=== PATIENT | female | born 1985 | race Caucasian/White ===

== ENCOUNTER 2024-03-01 23:07 | Emergency (ER) | payer OTHER, SELFPAY ==
[2024-03-01 23:08] VITALS: BP 165/95; PULSE 104; RESP 20; TEMP 37.2; O2SAT 96; BMI 41.5
--- NOTE | 2024-03-01 23:23 | CT_ITS ---
PROCEDURE INFORMATION: Exam: CT Head Without Contrast Exam date and time: 03/02/2024 12:04 AM Age: 38 years old Clinical indication: Other: H/a , sz; Additional info: Self-reported sz, BLOOM TECHNIQUE: Imaging protocol: Computed tomography of the head without contrast. Radiation optimization: All CT scans at this facility use at least one of these dose optimization techniques: automated exposure control; mA and/or kV adjustment per patient size (includes targeted exams where dose is matched to clinical indication); or iterative reconstruction. COMPARISON: No relevant prior studies available. FINDINGS: Brain: Mild generalized cerebral atrophy. No intracranial mass, hemorrhage or evidence of acute ischemia. Cerebral ventricles: No ventriculomegaly. Paranasal sinuses: Visualized sinuses are unremarkable. No fluid levels. Mastoid air cells: Visualized mastoid air cells are well aerated. Bones: Unremarkable. No acute fracture. Soft tissues: Unremarkable. IMPRESSION: No acute intracranial abnormality
[2024-03-01 23:41] LABS: Basophils # 0.1 K/mm3 (0-0.2); Basophils % 0.6 % (0.1-2.0); Eosinophils # 0.3 K/mm3 (0.0-0.4); Eosinophils % 2.2 % (0.1-12.0); Hematocrit 42.1 % (37.0-47.0); Lymphocytes # 1.8 K/mm3 (0.7-4.5); Lymphocytes % 14.3 % (10-50); Mean Corpuscular HGB Conc 33.2 g/dL (31.8-35.4); Mean Corpuscular Hemoglobin 25.9 pg (27.0-31.2); Mean Corpuscular Volume 78.1 fl (81-99); Mean Platelet Volume 7.9 fl (7.4-10.4); Monocytes # 0.8 K/mm3 (0.1-1.0); Neutrophils # 9.9 K/mm3 (1.8-7.8); Neutrophils % 76.9 % (37.0-80.0); Platelet Count 303 K/mm3 (142-424); Red Blood Count 5.38 M/mm3 (4.20-5.40); Red Cell Distribution Width 19.4 % (11.5-17.5); White Blood Count 12.9 K/mm3 (4.8-10.8)
[2024-03-01 23:57] LABS: Albumin Level 3.9 g/dl (3.5-5.0); Chloride 111 mmol/L (98-107); Sodium 140 mmol/L (136-145)
[2024-03-01 23:58] LABS: Potassium 3.4 mmoL/L (3.5-5.1)
[2024-03-01 23:59] LABS: HCG Qualitative, Serum Negative (Negative)
[2024-03-02] LABS: Alanine Aminotransferase 18 U/L (12-78); Albumin/Globulin Ratio 1.2 (1.1-1.8); Alkaline Phosphatase 102 U/L (38-126); Anion Gap 12.4 mEq/L (5-15); Aspartate Amino Transferase 22 U/L (14-36); Bilirubin,Total 0.4 mg/dl (0.2-1.3); Blood Urea Nitrogen 7 mg/dl (7-17); Carbon Dioxide 20 mmol/L (22.0-30.0); Creatinine Clearance Estimated 78 mL/min (50-200); Estimated Glomerular Filt Rate 71 ml/min (>60); GFR (African American) 86 ML/MIN (>60); Globulin 3.2 g/dL (1.3-3.2); Lactic Acid 1.2 mmol/L (0.7-2.1); Total Protein,Serum 7.1 g/dl (6.3-8.2)
[2024-03-02 00:01] LABS: Calcium 8.8 mg/dl (8.4-10.2); Glucose 113 mg/dl (74-100)
[2024-03-02] MEDS: levETIRAcetam 1,000 MG in 0.9 % SODIUM CHLORIDE 100 ML 220 MG IV (00:19)
--- NOTE | 2024-03-02 00:45 | HMH.EDGENADL ---
Discharge Plan Disposition Patient Disposition: Home, Self-Care Condition: Good Prescriptions Prescriptions: No Action levetiracetam 1,000 mg tablet 1,000 mg PO BID sucralfate 1 gram tablet 1 g PO QID cyanocobalamin (vitamin B-12) 1,000 mcg tablet 1,000 mcg PO DAILY hydroxyzine HCl 50 mg tablet 50 mg PO DAILY Patient Comments: TAKE 1 TABLET BY MOUTH DAILY ferrous sulfate [FeroSul] 325 mg (65 mg iron) tablet 325 mg PO DAILY topiramate 200 mg tablet 200 mg PO BID Patient Comments: TAKE 1 TABLET BY MOUTH TWICE DAILY Referrals Follow up/Referrals: Juliano Ely, [Staff Physician] - See instructions (new resident of [facility] PCP and likely neuro referral for breakthrough sz) Melissa Alonso APRN [Primary Care Provider] - See instructions Activity Restrictions/Add. Instructions Additional Instructions/Restrictions: You were evaluated in the ER and are appropriate for discharge at this time. Continue taking all your home medications. Call your neurology office first thing in the morning and ask how much Keppra you are supposed to be taking. The way you are currently being given it looks to be less than the way it was prescribed in december. You have been referred to Dr. Ely for primary care follow-up. Call him for an appointment and for a referral to our local neurologist. Return to the ER with new, worsening, or otherwise concerning symptoms. Clinical Impressions Clinical Impression: Breakthrough seizure Instructions Patient Instructions: DI for Seizure Disorder -- Adult Print Language Print Language: Sami Discharge ED Provider: Malcolm Tesfaye General Adult HPI General Chief complaint: Seizure Stated complaint: seizure Time Seen by Provider: 03/01/24 23:20 Mode of Arrival: EMS Source of Information: Patient and EMS Limitations: No Limitations Description of Symptoms (Recalled from ER Triage Doc. by RN): pt comes from [facility] by EMS, pt reportedly went to the nurses station to report a seizure. pt was in bed and did not fall out of the bed. pt reports she wet the bed and bit the inside of her lip on the left side. pt is also reported generalized pain History of Present Illness HPI narrative: 38-year-old female presents to the ER from [facility] via EMS. Patient reports she believes she had a seizure. She states she was in bed asleep and woke up having urinated on herself and bit the inside of her cheek. She walked to the nurses station immediately after waking up and told them she had had a seizure. No seizure activity was witnessed. Patient reports generalized bodyaches. Patient denies dizziness, numbness, tingling, weakness, chest pain, difficulty breathing, nausea, vomiting, diarrhea. Patient does report a history of seizures and states she takes 1000 mg of Keppra twice daily for it. Patient reports she sees Dr. Tunde Fang with neurology up by [place]. She states she has been on that for years. She states the last time she had a seizure was over a month ago. Patient does report mild dysuria but no hematuria. Related Data Home Medications ?Medication ?Instructions ?Recorded ?Confirmed cyanocobalamin (vitamin B-12) 1,000 mcg PO DAILY 03/02/24 03/02/24 1,000 mcg tablet ferrous sulfate 325 mg (65 mg 325 mg PO DAILY 03/02/24 03/02/24 iron) tablet (FeroSul) hydroxyzine HCl 50 mg tablet 50 mg PO DAILY 03/02/24 03/02/24 levetiracetam 1,000 mg tablet 1,000 mg PO BID 03/02/24 03/02/24 sucralfate 1 gram tablet 1 g PO QID 03/02/24 03/02/24 topiramate 200 mg tablet 200 mg PO BID 03/02/24 03/02/24 Allergies Allergy/AdvReac Type Severity Reaction Status Date / Time cyclobenzaprine Allergy Unknown Verified 03/02/24 02:02 [From Flexeril] allergy reaction prednisone Allergy Unknown Verified 03/02/24 02:02 allergy reaction [facility] Disclaimer: The information contained in this section may have been updated after the patient was seen, as this information can be updated by other users. Medical History (Updated 03/02/24 @ 02:29 by Malcolm Tesfaye MD) Seizure disorder Social History Smoking Status: Current every day smoker alcohol intake: never current occupational status: unemployed Travel in the last 8 weeks: None ROS Obtained: Yes Systems reviewed as appropriate & no additional complaints except as documented Constitutional Constitutional: Reports body ache, Denies chills, Denies fever(s), Denies headache(s) and Denies weakness Eyes Eyes: Denies change in vision ENT Ears, Nose, Mouth, and Throat: Denies dizziness, Denies headache(s), Denies nasal congestion, Denies sore throat and Reports other (Patient reports biting her right cheek) Cardiovascular Cardiovascular: Denies chest pain, Denies dyspnea and Denies leg edema Respiratory Respiratory: Denies cough and Denies dyspnea Gastrointestinal Gastrointestingal: Denies abdominal pain, constipation, diarrhea, nausea or vomiting Genitourinary Female Genitourinary: Denies dysuria Musculoskeletal Musculoskeletal: Denies arthralgias, Reports myalgias, Denies numbness and Denies tingling Integumentary/Breasts Skin/Breast: Denies change in pigmentation Neurologic Neurologic: Denies dizziness, Denies headache(s), Denies numbness, Reports seizure-like activity (Believed to have happened, not witnessed), Denies tingling and Denies weakness Physical Exam General General appearance: alert, in no apparent distress and obese Head Head exam: atraumatic and normocephalic Eye Eye exam: Present PERRL and EOMI ENT ENT exam: Present mucous membranes moist and other (Small abrasion inside right cheek, no bleeding, no other intraoral injuries or abnormalities appreciated) Neck Neck exam: Present normal inspection and full ROM Chest Chest inspection: Present symmetric chest wall rise Respiratory Respiratory exam: Present normal lung sounds bilaterally; Absent respiratory distress, wheezes or stridor Cardiovascular Cardiovascular exam: Present regular rate and normal rhythm Abdominal Exam Abdominal exam: Present soft; Absent distention, tenderness, guarding or rebound Extremities Exam Extremities exam: Present full ROM, normal capillary refill and other (No muscle tenderness appreciated on exam); Absent edema, joint swelling or calf tenderness Neurological Exam Neurological exam: Present alert, oriented X3 and CN II-XII intact; Absent motor sensory deficit Psychiatric Psychiatric exam: Present normal affect and normal mood Skin Skin exam: Present warm and dry Medical Decision Making Medical Records Screening: Per USPSTF and CDC recommendations, given the prevalence of disease in our region, it is our hospital?s policy to screen for HIV and viral Hepatitis for all patients aged 18 and over and those with ongoing risk factors. Lloyd Inquiry Pt receiving controlled substance: No Vital Signs: 03/01/24 23:08 Temperature 99.0 F Temperature Source Oral Pulse Rate [Right] 104 H Respiratory Rate 20 Blood Pressure [Right Arm] 165/95 H Blood Pressure Mean [Right Arm] 118 02 Sat by Pulse Oximetry 96 Oxygen Delivery Method Room Air Lab Data Lab Results 03/01/24 23:27: WBC 12.9 H, RBC 5.38, Hgb 14.0, Hct 42.1, MCV 78.1 L, MCH 25.9 L, MCHC 33.2, RDW 19.4 H, Plt Count 303, MPV 7.9, Neut % (Auto) 76.9, Lymph % (Auto) 14.3, [place] % (Auto) 6.0, Eos % (Auto) 2.2, Baso % (Auto) 0.6, Neut # (Auto) 9.9 H, Lymph # (Auto) 1.8, [place] # (Auto) 0.8, Eos # (Auto) 0.3, Baso # (Auto) 0.1, Sodium 140, Potassium 3.4 L, Chloride 111 H, Carbon Dioxide 20 L, Anion Gap 12.4, BUN 7, Creatinine 0.90, Estimated Creat Clear 78, Estimated GFR 71, Est GFR ( Amer) 86, Glucose 113 H, Lactate 1.2, Calcium 8.8, Total Bilirubin 0.4, AST 22, ALT 18, Alkaline Phosphatase 102, Total Protein 7.1, Albumin 3.9, Globulin 3.2, Albumin/Globulin Ratio 1.2, Serum HCG, Qual Negative 03/02/24 00:00: Plasma/Serum Alcohol < 10 03/02/24 02:56: Urine Color Yellow, Urine Appearance Clear, Urine pH 6.0, Ur Specific [place] 1.025, Urine Protein Negative, Urine Glucose (UA) Negative, Urine Ketones Negative, Urine Blood Negative, Urine Nitrate Negative, Urine Bilirubin Negative, Urine Urobilinogen 0.2, Ur Leukocyte Esterase Negative, Urine RBC None, Urine WBC None, Ur Squamous Epith Cells 3-5, Urine Bacteria Trace, Urine Mucus Trace, Urine Opiates Screen Negative, Urine Methadone Screen Negative, Ur Barbituates Screen Negative, Ur Phencyclidine Scrn Negative, Ur Amphetamines Screen Negative, U Benzodiazepines Scrn Negative, Urine Cocaine Screen Negative, U Marijuana (THC) Screen Negative 03/01/24 23:27 03/01/24 23:27 Orders (Tests/Meds): ED MEDICATIONS Discontinued Medications Generic Name Dose Route Start Last Admin Trade Name Freq PRN Reason Stop Dose Admin Levetiracetam 1,000 mg/ Sodium 110 mls @ 220 mls/hr 11/06/24 00:01 03/02/24 00:19 Chloride IV 03/02/24 00:02 220 mls/hr ONCE ONE Administration ORDERS Category Date Time Status CT head/brain wo con Stat Cat Scan 03/01/24 23:23 Completed CBC w/Auto Diff [Complete Blood Count Auto Diff] Stat Lab 03/01/24 23:27 Completed CMP [Comprehensive Metabolic Panel] Stat Lab 03/01/24 23:27 Completed Ethanol [Ethyl Alcohol] Stat Lab 03/02/24 00:00 Completed HCG Qualitative, Serum Stat Lab 03/01/24 23:27 Completed Lactic Acid Stat Lab 03/01/24 23:27 Completed UDS [Drug Screen,Urine] Stat Lab 03/02/24 02:56 Completed Urinalysis and Microscopic Stat Lab 03/02/24 02:56 Completed Medical Decision Narrative: In summary, this 38-year-old female presents to the emergency department today with concern of seizure, no witnessed activity. On initial evaluation patient is hemodynamically stable, afebrile, alert, oriented, GCS 15, no neurologic deficits, aside from small abrasion inside right cheek, there are no abnormalities on physical exam. Differential diagnosis includes but is not limited to electrolyte abnormality, dehydration, I considered the possibility of nonepileptic seizure, seizure-like activity, epileptic seizure, breakthrough seizure, medication noncompliance, urinary tract infection. Based on these concerns, I ordered serum labs, CT head, urine studies. With clinical findings concerning for patient having had seizure prior to arrival, I did administer IV Keppra. We have reached out to [facility] to Dr. Tunde Fang in hopes of receiving records from this patient's visits within their system, however so far no success. Labs personally reviewed demonstrate mild leukocytosis, no lactic acidosis, no anemia, no actionable electrolyte abnormality, test negative. Labs are not strongly indicative of patient having had a seizure however I cannot rule it out and with her findings on exam, have an increase suspicion that it is more likely to have been seizure. EtOH negative. CT head personally interpreted does not demonstrate acute intracranial abnormality such as mass, lesion, or bleed. See radiology read for final interpretation. Patient tolerated oral intake in the ER. She eventually provided a urine sample which demonstrated no findings of infection. UDS negative. Patient has remained stable in the ER with no recurrence of seizure activity. She is resting comfortably. She is appropriate for discharge at this time. I reviewed patient's prescription history, it appears as though patient is receiving 1 g twice daily of Keppra at [facility], however the way the prescription is written from December, this appears to be underdosed. I instructed the patient to call her neurologist first thing in the morning and ask how much Where she is supposed to be taking to ensure she is receiving the appropriate amount. [facility] I provided the patient a referral to Dr. Ely with [facility] to establish primary care locally as well as to be referred to our local neurologist for closer follow-up of her seizures. Patient indicated understanding. She was discharged in stable condition. Critical Care Critical Care Time Critical Care Time: No
[2024-03-02 02:27] LABS: Ethyl Alcohol < 10 mg/dl (0-10)
[2024-03-02 03:04] LABS: Microscopic, Urine URINE MICROSCOPIC (MICROSCOPIC)
[2024-03-02 03:05] LABS: Appearance,Urine CLEAR (Clear); Bilirubin,Urine Negative (Negative); Blood, Urine Negative (Negative); Color,Urine YELLOW (Yellow); Glucose,Urine (UA) Negative (Negative); Ketones,Urine Negative (Negative); Leukocyte Esterase,Urine Negative (Negative); Nitrate,Urine Negative (Negative); Protein,Urine Negative (Negative); Specific Gravity, Urine 1.025 (1.005-1.030); Urobilinogen,Urine 0.2 EU/dl (0.2)
[2024-03-02 03:15] LABS: Bacteria,Urine Trace /lpf; Mucus,Urine Trace /lpf
[2024-03-02 03:18] LABS: Amphetamine/Metha Screen,Urine Negative ng/ml (<1000)
[2024-03-02 03:19] LABS: Barbiturates Screen,Urine Negative ng/ml (<200)
[2024-03-02 03:20] LABS: Benzodiazepines Screen,Urine Negative ng/ml (<200); Cannabinoid Screen,Urine Negative ng/ml (<50)
[2024-03-02 03:21] LABS: Cocaine Screen,Urine Negative ng/ml (<300); Methadone Screen,Urine Negative ng/ml (<300)
[2024-03-02 03:22] LABS: Opiate Screen,Urine Negative ng/ml (<300)
[2024-03-02 03:23] LABS: Phencyclidine Screen,Urine Negative ng/ml (<25)
[2024-03-02 03:49] VITALS: BP 132/75; PULSE 82; RESP 18; TEMP 36.4; O2SAT 97
--- NOTE | 2024-03-02 07:47 | PC.NURSE ---
in chart for facesheet for EMS at this time.
== END 2024-03-02 04:04 | disposition home or self-care (01) ==
PROVIDERS: Emergency Provider Emergency Medicine; PCP Nurse Practitioner Family
DX: G40.919 Epilepsy, unspecified, intractable, without status epilepticus (principal); M79.10 Myalgia, unspecified site; R30.0 Dysuria
CPT/HCPCS: 70450; 80053; 80307; 80320; 81001; 83605; 84703; 85025; 96374; 99284; G0480; J1953

== ENCOUNTER 2024-03-09 09:24 | Outpatient (CLI) | payer SELFPAY ==
[2024-03-12 20:13] LABS: Levetiracetam (Keppra) 28.4 ug/mL (10.0-40.0)
== END 2024-03-09 23:59 | disposition home or self-care (01) ==
LOC: LAB 09:33
PROVIDERS: Visit Provider Nurse Practitioner Family
DX: G40.001 Localization-related (focal) (partial) idiopathic epilepsy and epileptic syndromes with seizures of localized onset, not intractable, with status epilepticus (principal)
CPT/HCPCS: 36415; 80177

== ENCOUNTER 2024-05-01 10:46 | Inpatient (IN) | payer SELFPAY ==
[2024-05-01] VITALS (14 sets, daily range): BP systolic 108–147; BP diastolic 65–88; PULSE 87–114; RESP 16–18; TEMP 36.7–37.1; O2SAT 96–100; BMI 48.0
[2024-05-01] MEDS: LACTATED RINGERS 1000ML 1,000 ML 999 ML IV ×2 (11:31→13:56)
[2024-05-01 11:37] LABS: Albumin Level 3.9 g/dl (3.5-5.0); Basophils # 0.1 K/mm3 (0-0.2); Basophils % 0.7 % (0.1-2.0); Chloride 109 mmol/L (98-107); Eosinophils # 0.2 K/mm3 (0.0-0.4); Eosinophils % 0.8 % (0.1-12.0); Hemoglobin 14.1 g/dL (12.2-16.2); Lymphocytes % 9.1 % (10-50); Mean Corpuscular HGB Conc 33.6 g/dL (31.8-35.4); Mean Corpuscular Hemoglobin 27.5 pg (27.0-31.2); Mean Corpuscular Volume 81.9 fl (81-99); Mean Platelet Volume 10.7 fl (7.4-10.4); Monocytes # 1.4 K/mm3 (0.1-1.0); Monocytes % 6.6 % (1.7-9.3); Neutrophils # 17.7 K/mm3 (1.8-7.8); Neutrophils % 82.1 % (37.0-80.0); Platelet Count 316 K/mm3 (142-424); Potassium 3.2 mmoL/L (3.5-5.1); Red Blood Count 5.13 M/mm3 (4.20-5.40); Red Cell Distribution Width 14.1 % (11.5-17.5); Sodium 140 mmol/L (136-145); White Blood Count 21.5 K/mm3 (4.8-10.8)
[2024-05-01 11:39] LABS: Alanine Aminotransferase 20 U/L (12-78); Blood Urea Nitrogen 9 mg/dl (7-17); Creatinine Clearance Estimated 96 mL/min (50-200); Estimated Glomerular Filt Rate 95 ml/min (>60); GFR (African American) 115 ML/MIN (>60)
[2024-05-01 11:40] LABS: Albumin/Globulin Ratio 1.1 (1.1-1.8); Alkaline Phosphatase 100 U/L (38-126); Anion Gap 15.2 mEq/L (5-15); Aspartate Amino Transferase 27 U/L (14-36); Bilirubin,Total 0.7 mg/dl (0.2-1.3); Calcium 9.2 mg/dl (8.4-10.2); Carbon Dioxide 19 mmol/L (22.0-30.0); Globulin 3.7 g/dL (1.3-3.2); Glucose 115 mg/dl (74-100); Lactic Acid 1.2 mmol/L (0.7-2.1); Total Protein,Serum 7.6 g/dl (6.3-8.2)
[2024-05-01 11:55] LABS: MANUAL DIFFERENTIAL MANUAL DIFFERENTIAL (MANUAL DIFF)
[2024-05-01] MEDS: PIPERACILLIN/TAZO 3.375 GM in 0.9 % SODIUM CHLORIDE 50 ML IV (12:04)
--- NOTE | 2024-05-01 12:11 | CT_ITS ---
PROCEDURE INFORMATION: Exam: CT Abdomen And Pelvis With Contrast Exam date and time: 05/01/2024 1:11 PM Age: 38 years old Clinical indication: Other: R abdominal wound and induration, concern for absc TECHNIQUE: Imaging protocol: Computed tomography of the abdomen and pelvis with contrast. Radiation optimization: All CT scans at this facility use at least one of these dose optimization techniques: automated exposure control; mA and/or kV adjustment per patient size (includes targeted exams where dose is matched to clinical indication); or iterative reconstruction. Contrast material: ISOVUE; Contrast volume: 75 ml; Contrast route: IV; COMPARISON: No relevant prior studies available. FINDINGS: Liver: Unremarkable. Gallbladder and biliary ducts: Status post cholecystectomy. Pancreas: Unremarkable. Spleen: Unremarkable. Adrenal glands: Unremarkable. Kidneys and ureters: Unremarkable. Stomach and bowel: Unremarkable. Appendix: Appendix is visualized and is normal. Intraperitoneal space: No free fluid. No pneumoperitoneum. Vasculature: Unremarkable. Lymph nodes: Unremarkable. Urinary bladder: Bladder is decompressed, limiting evaluation. Reproductive: Intrauterine device in place and appears appropriately positioned. Bones/joints: No evidence of acute osseous abnormality. Soft tissues: Skin thickening and subcutaneous fat stranding in the lower right anterior abdominal wall compatible with dermatitis/cellulitis. No subcutaneous emphysema or focal fluid collection. Fat-containing umbilical hernia. No evidence of acute inflammation. IMPRESSION: 1. No evidence of acute intra-abdominal pathology. 2. Skin thickening and subcutaneous fat stranding in the lower right anterior abdominal wall compatible with dermatitis/cellulitis. No evidence of underlying abscess or necrotizing soft tissue infection. 3. Fat-containing umbilical hernia
--- NOTE | 2024-05-01 12:16 | P.CONPHA_ITS ---
Pharmacy Consult Date: 05/01/24 Time: 12:17 Referring provider: DR RECIO Reason for Consult:: VANCOMYCIN DOSING CONSULT Allergies Allergy/AdvReac Type Severity Reaction Status Date / Time cyclobenzaprine (From Allergy Unknown Verified 05/01/24 11:18 Flexeril) allergy reaction prednisone Allergy Unknown Verified 05/01/24 11:18 allergy reaction Home Medications ?Medication ?Instructions ?Recorded ?Confirmed ?Type cyanocobalamin (vitamin B-12) 1,000 mcg PO DAILY 03/02/24 03/02/24 History 1,000 mcg tablet ferrous sulfate 325 mg (65 mg 325 mg PO DAILY 03/02/24 03/02/24 History iron) tablet (FeroSul) hydroxyzine HCl 50 mg tablet 50 mg PO DAILY 03/02/24 03/02/24 History levetiracetam 1,000 mg tablet 1,000 mg PO BID 03/02/24 03/02/24 History sucralfate 1 gram tablet 1 g PO QID 03/02/24 03/02/24 History topiramate 200 mg tablet 200 mg PO BID 03/02/24 03/02/24 History New Prescriptions to Start Prescriptions: Height: 1.63 m Weight: 127.006 kg Laboratory Results:: Laboratory Results - last 24 hr 05/01/24 11:01: WBC 21.5 H*, RBC 5.13, Hgb 14.1, Hct 42.0, MCV 81.9, MCH 27.5, MCHC 33.6, RDW 14.1, Plt Count 316, MPV 10.7 H, Neut % (Auto) 82.1 H, Lymph % (Auto) 9.1 L, [place] % (Auto) 6.6, Eos % (Auto) 0.8, Baso % (Auto) 0.7, Neut # (Auto) 17.7 H, Lymph # (Auto) 2.0, [place] # (Auto) 1.4 H, Eos # (Auto) 0.2, Baso # (Auto) 0.1, Sodium 140, Potassium 3.2 L, Chloride 109 H, Carbon Dioxide 19 L, Anion Gap 15.2 H, BUN 9, Creatinine 0.70, Estimated Creat Clear 96, Estimated GFR 95, Est GFR ( Amer) 115, Glucose 115 H, Lactate 1.2, Calcium 9.2, Total Bilirubin 0.7, AST 27, ALT 20, Alkaline Phosphatase 100, Total Protein 7.6, Albumin 3.9, Globulin 3.7 H, Albumin/Globulin Ratio 1.1 Medical History: Medical History (Updated 03/02/24 @ 02:29 by Malcolm Tesfaye MD) Seizure disorder Assessment and Plan Assessment and plan all Dx Assessment and Plan for all problems:: Pharmacokinetic dosing service Objective: Age: 38 yo Serum creatinine: 0.7 mg/dL Height: 64.0 Inches Weight (kg): 127.006 Diagnosis: CELLULITIS Assessment: IBW (kg): 54.70 Dosing wt(kg): 127.006 Estimated Creatinine clearance (ml/min): 130 Clearance limited to 130 ml/min to reduce risk of overdosing. CRCL method: Cockcroft and Gault using adjusted body weight Drug selected: Vancomycin Vd (liters): 88.9 (factor used: 0.7 L/kg) Gautam (hr-1): 0.112 Half life (hrs): 6.19 CLvanco=?? 9.957 L/hr Recommended dose: 2500 mg Interval: 12 hrs Infusion time (hrs): 2.0 Predicted peak (mcg/mL): 34.1 Predicted trough (mcg/mL): 11.13 Total body weight is being used for vancomycin dosing. Recommendations: Give Vancomycin 2500 mg q 12 hrs with an expected Cpeak of 34.1 mcg/ml and an expected Ctrough of 11.13 mcg/ml AUC 0-24 /RONALDO Data: RONALDO 0.5 mcg/mL:?? AUC/RONALDO:? 1004.3 RONALDO 1.0 mcg/mL:?? AUC/RONALDO:? 502.2 --------- RONALDO 1.5 mcg/mL:?? AUC/RONALDO:? 334.8 RONALDO 2.0 mcg/mL:?? AUC/RONALDO:? 251.1 Thank you for the consult
[2024-05-01] MEDS: VANCOMYCIN CONSULT REQUEST 1 EACH NOTAPPLIC (12:17)
[2024-05-01] MEDS: VANCOMYCIN HCL 2,500 MG in 0.9 % SODIUM CHLORIDE 500 ML 250 MG IV (12:44)
--- NOTE | 2024-05-01 12:47 | ED_ITS ---
Discharge Plan Disposition Patient Disposition: Home, Self-Care Chief Complaint: Wound/Laceration Prescriptions Prescriptions: No Action levetiracetam 1,000 mg tablet 1,000 mg PO BID sucralfate 1 gram tablet 1 g PO QID cyanocobalamin (vitamin B-12) 1,000 mcg tablet 1,000 mcg PO DAILY hydroxyzine HCl 50 mg tablet 50 mg PO DAILY Patient Comments: TAKE 1 TABLET BY MOUTH DAILY ferrous sulfate [FeroSul] 325 mg (65 mg iron) tablet 325 mg PO DAILY topiramate 200 mg tablet 200 mg PO BID Patient Comments: TAKE 1 TABLET BY MOUTH TWICE DAILY Referrals Follow up/Referrals: Provider,Referral, MD [Primary Care Provider] - See instructions Clinical Impressions Clinical Impression: Sepsis due to skin infection Instructions Patient Instructions: DI for Laceration Repair Print Language Print Language: Moldovan Discharge ED Provider: Jarred Arredondo General Adult HPI General Chief complaint: Wound/Laceration Stated complaint: abd pain Time Seen by Provider: 05/01/24 11:00 Mode of Arrival: EMS Source of Information: Patient Limitations: No Limitations Description of Symptoms (Recalled from ER Triage Doc. by RN): pt reports she has had a painful area on her abd x7d. The area is on her RLQ and is open with sanguinous purulent drainage. the pt suspects she was bitten by a bug but is unsure. EMS reports Shadylawn states she has been picking and pushing on the area. The pt reports her pain is 10/10. History of Present Illness HPI narrative: Patient is a 38-year-old female who presents emergency department for evaluation of a wound on her abdomen. Over the last 7 days patient originally had what she thought was a bug bite which she was scratching however since it has turned into an open wound with draining pus and has expanded over a broad area of her right abdomen. Due to progressive symptoms she presents here for continued evaluation. There is associated pain which she states is severe. No other acute complaints at this time. Related Data Home Medications ?Medication ?Instructions ?Recorded ?Confirmed cyanocobalamin (vitamin B-12) 1,000 mcg PO DAILY 03/02/24 03/02/24 1,000 mcg tablet ferrous sulfate 325 mg (65 mg 325 mg PO DAILY 03/02/24 03/02/24 iron) tablet (FeroSul) hydroxyzine HCl 50 mg tablet 50 mg PO DAILY 03/02/24 03/02/24 levetiracetam 1,000 mg tablet 1,000 mg PO BID 03/02/24 03/02/24 sucralfate 1 gram tablet 1 g PO QID 03/02/24 03/02/24 topiramate 200 mg tablet 200 mg PO BID 03/02/24 03/02/24 Allergies Allergy/AdvReac Type Severity Reaction Status Date / Time cyclobenzaprine (From Allergy Unknown Verified 05/01/24 11:18 Flexeril) allergy reaction prednisone Allergy Unknown Verified 05/01/24 11:18 allergy reaction PFSH PFS Disclaimer: The information contained in this section may have been updated after the patient was seen, as this information can be updated by other users. Medical History (Updated 05/01/24 @ 14:21 by Jarred Arredondo MD) Seizure disorder Social History (Updated 03/02/24 @ 03:50 by Malcolm Tesfaye MD) Smoking Status: Current every day smoker alcohol intake: never current occupational status: unemployed Travel in the last 8 weeks: None Have you lived/traveled outside [place] in past 30 days?: No Contact w/someone who lives/traveled outside US past 30 days?: No Exposure to someone with infectious disease in past 14 days?: No Do you have a fever (greater than 100.4 F or 38 C)?: No Have you tested positive for COVID-19: No Exposed to someone with COVID-19 in past 14 days?: No Do you have a sore throat?: No Do you have a cough?: No Do you have any weakness?: No Do you have any diarrhea?: No Are you experiencing any unusual bleeding?: No Do you have any muscle aches/pain?: No Do you have any abdominal pain?: No Are you experiencing loss of taste or smell?: No ROS Obtained: Yes Systems reviewed as appropriate & no additional complaints except as documented Physical Exam General General appearance: alert and in no apparent distress Head Head exam: atraumatic and normocephalic Eye Eye exam: Present PERRL ENT ENT exam: Present mucous membranes moist Neck Neck exam: Present normal inspection Chest Chest inspection: Present normal inspection and symmetric chest wall rise Respiratory Respiratory exam: Present normal lung sounds bilaterally; Absent respiratory distress Cardiovascular Cardiovascular exam: Present regular rate and normal rhythm Abdominal Exam Abdominal exam: Present soft and tenderness (There is a 6 cm area of duskiness at the left lower quadrant of the abdomen with ulceration and purulence at 3:00. This is in turn surrounded by a large area of the erythema over the right lower quadrant of the abdomen that is indurated, no significant fluctuance appreciated) Extremities Exam Extremities exam: Present normal inspection Neurological Exam Neurological exam: Present alert Psychiatric Psychiatric exam: Present normal affect Skin Skin exam: Present warm and dry Medical Decision Making Medical Records Screening: Per USPSTF and CDC recommendations, given the prevalence of disease in our region, it is our hospital?s policy to screen for HIV and viral Hepatitis for all patients aged 18 and over and those with ongoing risk factors. Lloyd Inquiry Pt receiving controlled substance: No Vital Signs: 05/01/24 11:05 05/01/24 11:27 05/01/24 11:31 Temperature 98.1 F Temperature Source Oral Pulse Rate 95 H 95 H Pulse Rate [Left] 114 H Respiratory Rate 16 Blood Pressure 128/82 132/83 Blood Pressure [Right Arm] 128/85 Blood Pressure Mean [Right Arm] 99 Blood Pressure Source [Right Arm] Automatic Cuff Blood Pressure Position [Right Arm] Sitting 02 Sat by Pulse Oximetry 100 97 97 Oxygen Delivery Method Room Air Room Air Room Air 05/01/24 11:45 05/01/24 12:01 05/01/24 12:36 Temperature Temperature Source Pulse Rate 100 H 97 H 98 H Pulse Rate [Left] Respiratory Rate Blood Pressure 133/81 147/84 H Blood Pressure [Right Arm] Blood Pressure Mean [Right Arm] Blood Pressure Source [Right Arm] Blood Pressure Position [Right Arm] 02 Sat by Pulse Oximetry 99 99 99 Oxygen Delivery Method Room Air 05/01/24 13:01 05/01/24 13:30 05/01/24 14:00 Temperature Temperature Source Pulse Rate 92 H 87 95 H Pulse Rate [Left] Respiratory Rate Blood Pressure 141/86 H 144/84 H 140/83 Blood Pressure [Right Arm] Blood Pressure Mean [Right Arm] Blood Pressure Source [Right Arm] Blood Pressure Position [Right Arm] 02 Sat by Pulse Oximetry 97 100 99 Oxygen Delivery Method Room Air Room Air Lab Data Lab Results 05/01/24 11:01: WBC 21.5 H*, RBC 5.13, Hgb 14.1, Hct 42.0, MCV 81.9, MCH 27.5, MCHC 33.6, RDW 14.1, Plt Count 316, MPV 10.7 H, Neut % (Auto) 82.1 H, Lymph % (Auto) 9.1 L, [place] % (Auto) 6.6, Eos % (Auto) 0.8, Baso % (Auto) 0.7, Neut # (Auto) 17.7 H, Lymph # (Auto) 2.0, [place] # (Auto) 1.4 H, Eos # (Auto) 0.2, Baso # (Auto) 0.1, Total Counted 100, Neutrophils % (Manual) 81 H, Lymphocytes % (Manual) 16, Monocytes % (Manual) 3, Platelet Estimate Normal, RBC Morphology Normal, Sodium 140, Potassium 3.2 L, Chloride 109 H, Carbon Dioxide 19 L, Anion Gap 15.2 H, BUN 9, Creatinine 0.70, Estimated Creat Clear 96, Estimated GFR 95, Est GFR ( Amer) 115, Glucose 115 H, Lactate 1.2, Calcium 9.2, Total Bilirubin 0.7, AST 27, ALT 20, Alkaline Phosphatase 100, Total Protein 7.6, Albumin 3.9, Globulin 3.7 H, Albumin/Globulin Ratio 1.1 05/01/24 12:31: Urine HCG, Qual Negative 05/01/24 11:01 05/01/24 11:01 Orders (Tests/Meds): ED MEDICATIONS Generic Name Dose Route Start Last Admin Trade Name Jeremieq PRN Reason Stop Dose Admin Vancomycin HCl 2,500 mg/ 500 mls @ 250 mls/hr 05/01/24 12:15 05/01/24 12:44 Sodium Chloride IV 05/11/24 12:14 250 mls/hr Q12H ROLAND Administration Lactated Ringer's 1,000 mls @ 999 mls/hr 05/01/24 13:01 05/01/24 13:56 Lactated Ringer's 1000 Ml Bag IV 05/01/24 14:01 999 mls/hr .Q1H1M ONE Administration Iopamidol 75 ml 05/01/24 13:10 05/01/24 13:11 Iopamidol-370 (76%);100ml Bottle IV 05/01/24 13:11 75 ml ONCE ONE Administration Miscellaneous 1 each 05/01/24 12:00 05/01/24 12:17 Vancomycin Consult Request NOTAPPLIC 05/31/24 11:59 1 each CONSULT PHARMACY ROLAND Administration Sodium Chloride 10 ml 05/01/24 13:10 05/01/24 13:11 Sodium Chloride 0.9% 10ml Syr (Rad Only) IV 05/01/24 13:11 10 ml ONCE ONE Administration Discontinued Medications Generic Name Dose Route Start Last Admin Trade Name Freq PRN Reason Stop Dose Admin Lactated Ringer's 1,000 mls @ 999 mls/hr 05/01/24 11:30 05/01/24 11:31 Lactated Ringer's 1000 Ml Bag IV 05/01/24 12:30 999 mls/hr .Q1H1M ONE Administration Piperacillin Sod/Tazobactam 50 mls @ 100 mls/hr 05/01/24 11:57 05/01/24 12:04 Sod 3.375 gm/ Sodium Chloride IV 05/01/24 12:26 100 mls/hr ONCE ONE Administration ORDERS Category Date Time Status CT abdomen pelvis w con Stat Cat Scan 05/01/24 12:11 Completed Complete Blood Count Auto Diff Stat Lab 05/01/24 11:01 Completed Comprehensive Metabolic Panel Stat Lab 05/01/24 11:01 Completed Lactic Acid Stat Lab 05/01/24 11:01 Completed Urine , HCG Qual. Stat Lab 05/01/24 12:31 Completed Blood Culture Stat Micro 05/01/24 11:17 Received Wound Culture and Gram Stain Stat Micro 05/01/24 11:23 Received Medical Decision Narrative: In summary patient is a 38-year-old female past medical history described above who presents emergency department for evaluation of a wound on her abdomen. Patient is hemodynamically stable nontoxic-appearing upon arrival, mild tachycardia. Differential includes soft tissue infection, deep space infection, among others. Workup be conducted with hematologic labs, urinalysis test, CT abdomen pelvis IV contrast screening for deep space tracking infection. Initial inventions include 1 L crystalloid, vancomycin, Zosyn. Initial sepsis bolus will be deferred given that patient appears slightly volume down but not overtly volume down. Initial workup reviewed by me, significant leukocytosis 21.5, mild hypokalemia which will be repleted orally. No CINDI or critical electrolyte abnormality otherwise. Urinalysis hCG negative. Upon repeat evaluation patient had borderline tachycardia will be converted to sepsis bolus fluids at this time ideal body weight crystalloid resuscitation is total 1640 patient given total of [address] abdomen pelvis shows thickening of subcutaneous fat stranding and overlying skin thickening compatible with cellulitis. By definition patient will have panniculitis. No deep space infection noted on CT. Given this patient is appropriate for admission at this institution the case discussed with hospital medicine regarding management of admit patient to service for continued evaluation at this time. Critical Care Critical Care Time Critical Care Time: Yes Attestation: On 05/01/24, the high probability of a clinically significant, sudden or life threatening deterioration of the following system(s) required my full and direct attention, intervention and personal management. The time I documented below is in addition to time spent performing reported procedures but includes the following listed in this critical care notation. Total Time Total Critical Care Time: 35
[2024-05-01 12:56] LABS: Urine Pregnancy, HCG Qual. Negative (Negative)
[2024-05-01] MEDS: IOPAMIDOL-370 (76%);100ML BOTTLE 75 ML IV (13:11)
[2024-05-01] MEDS: SODIUM CHLORIDE 0.9% 10ML SYR (RAD ONLY) 10 ML IV (13:11)
[2024-05-01 13:46] LABS: Lymphocytes % 16 % (10-50); Monocytes % 3 % (2-9); Neutrophils % 81 % (42-76); Platelet Estimate Normal; RBC Morphology Normal; Total Cells Counted 100
--- NOTE | 2024-05-01 15:26 | PC.NURSE ---
I called dietary and requested a tray for the pt.
--- NOTE | 2024-05-01 15:38 | PC.NURSE ---
report called to [facility]
--- NOTE | 2024-05-01 15:49 | PC.NURSE ---
arrived by w/c from ED
[2024-05-01] MEDS: HYDROCODONE/APAP 5/325 MG TABLET 2 TAB PO (20:37)
--- NOTE | 2024-05-01 20:42 | EXP.HP ---
History of Present Illness *Admission Date: 05/01/24 *Reason for visit:: Sepsis, cellulitis *History of present illness: Kandace Ring is a 38-year-old female with a medical history significant for seizure disorder, GERD who presents with cellulitis of her abdomen for the past week. She states it started as a small knot which progressively became more erythematous, tender and draining purulence over the past. She denies any trauma, needlesticks, or similar infections in the past. Workup in the ED significant for WBC 21.5, AGAP 15, CT abdomen/pelvis not showing deep soft tissue infection. She was tachycardic in the ED. Case discussed with ED provider and decision was made to admit patient for sepsis secondary to cellulitis. [facility] Disclaimer: The information contained in this section may have been updated after the patient was seen, as this information can be updated by other users. Medical History Cholecystitis ADHD Depression Anxiety GERD (gastroesophageal reflux disease) Seizure disorder Surgical History History of tonsillectomy History of Family History (Updated 05/01/24 @ 16:48 by Katherine Montalvo RN) Other Alcohol abuse Family history of cancer Social History (Updated 05/01/24 @ 16:49 by Katherine Montalvo RN) Smoking Status: Current every day smoker alcohol intake: former current occupational status: unemployed Travel in the last 8 weeks: None Have you lived/traveled outside US in past 30 days?: No Contact w/someone who lives/traveled outside US past 30 days?: No Exposure to someone with infectious disease in past 14 days?: No Do you have a fever (greater than 100.4 F or 38 C)?: No Have you tested positive for COVID-19: No Exposed to someone with COVID-19 in past 14 days?: No Do you have a sore throat?: No Do you have a cough?: No Do you have any weakness?: No Do you have any diarrhea?: No Are you experiencing any unusual bleeding?: No Do you have any muscle aches/pain?: No Do you have any abdominal pain?: No Are you experiencing loss of taste or smell?: No Other Medical History Have you received the Flu Vaccine for this season: Yes Have you received the Pneumonia Vaccine: Yes Meds Home Medications and Allergies Home Medications ?Medication ?Instructions ?Recorded ?Confirmed ?Type cyanocobalamin (vitamin B-12) 1,000 mcg PO DAILY 03/02/24 05/01/24 History 1,000 mcg tablet ferrous sulfate 325 mg (65 mg 325 mg PO DAILY 03/02/24 05/01/24 History iron) tablet (FeroSul) hydroxyzine HCl 50 mg tablet 50 mg PO DAILY 03/02/24 05/01/24 History levetiracetam 1,000 mg tablet 1,000 mg PO BID 03/02/24 05/01/24 History sucralfate 1 gram tablet 1 g PO QID 03/02/24 05/01/24 History topiramate 200 mg tablet 200 mg PO BID 03/02/24 05/01/24 History famotidine 20 mg tablet (Pepcid) 20 mg PO BID 05/01/24 05/01/24 History omeprazole 40 mg capsule,delayed 40 mg PO DAILY 05/01/24 05/01/24 History release New Prescriptions to Start Prescriptions: Allergies Allergy/AdvReac Type Severity Reaction Status Date / Time cyclobenzaprine (From Allergy Unknown Verified 05/01/24 11:18 Flexeril) allergy reaction prednisone Allergy Unknown Verified 05/01/24 11:18 allergy reaction Exam Data for Last 24 hours Vital signs and Labs for Last 24 Hours: Temp Pulse Resp BP Pulse Ox O2 Del Method 98.5 F 98 H 18 125/73 96 Room Air 05/01/24 20:00 05/01/24 20:00 05/01/24 20:00 05/01/24 20:00 05/01/24 20:00 05/01/24 20:00 Laboratory Results - last 24 hr 05/01/24 11:01: WBC 21.5 H*, RBC 5.13, Hgb 14.1, Hct 42.0, MCV 81.9, MCH 27.5, MCHC 33.6, RDW 14.1, Plt Count 316, MPV 10.7 H, Neut % (Auto) 82.1 H, Lymph % (Auto) 9.1 L, [place] % (Auto) 6.6, Eos % (Auto) 0.8, Baso % (Auto) 0.7, Neut # (Auto) 17.7 H, Lymph # (Auto) 2.0, [place] # (Auto) 1.4 H, Eos # (Auto) 0.2, Baso # (Auto) 0.1, Total Counted 100, Neutrophils % (Manual) 81 H, Lymphocytes % (Manual) 16, Monocytes % (Manual) 3, Platelet Estimate Normal, RBC Morphology Normal, Sodium 140, Potassium 3.2 L, Chloride 109 H, Carbon Dioxide 19 L, Anion Gap 15.2 H, BUN 9, Creatinine 0.70, Estimated Creat Clear 96, Estimated GFR 95, Est GFR ( Amer) 115, Glucose 115 H, Lactate 1.2, Calcium 9.2, Total Bilirubin 0.7, AST 27, ALT 20, Alkaline Phosphatase 100, Total Protein 7.6, Albumin 3.9, Globulin 3.7 H, Albumin/Globulin Ratio 1.1 05/01/24 12:31: Urine HCG, Qual Negative I & O for Last 24 hours: Intake & Output 04/28/24 04/29/24 04/30/24 05/01/24 23:59 23:59 23:59 23:59 Intake Total 480 / 480 Balance 480 / 480 Weight 127.006 kg Microbiology Reports for the Last 24 Hours: Microbiology 05/01/24 11:23 Abdomen Gram Stain - Final Constitutional Constitutional: no acute distress *Routine HEENT Exam Head: Present normocephalic Eye: Present EOMI and PERRL ENT: Present mucous membranes moist *Routine Neck Exam Neck: Present supple; Absent lymphadenopathy *Routine Respiratory Exam Respiratory: Present CTA bilaterally *Routine Cardiovascular Exam Cardiovascular: Present RRR *Routine Abdominal Exam Abdominal: Present soft and normoactive bowel sounds; Absent tenderness *Routine Rectal Exam Rectal:: deferred *Routine Genitalia Exam Genitalia:: deferred *Routine Extremities Exam Extremities: Absent cyanosis, clubbing or edema *Routine Skin Exam Skin: Present warm; Absent rash Comments: Right lower abdomen about 10 x 8 cm erythema with central induration and purulent discharge. *Routine Neurological Exam Neurological: Present alert and oriented X3 Assessment and Plan *Assessment and plan (1) Sepsis due to skin infection: Status: Acute Category: Medical Code(s): A41.9 - Sepsis, unspecified organism; L08.9 - Local infection of the skin and subcutaneous tissue, unspecified Plan Kandace Ring is a 38-year-old female with a medical history significant for seizure disorder, GERD who presents with cellulitis of her abdomen for the past week. She states it started as a small knot which progressively became more erythematous, tender and draining purulence over the past. She denies any trauma, needlesticks, or similar infections in the past. Workup in the ED significant for WBC 21.5, AGAP 15, CT abdomen/pelvis not showing deep soft tissue infection. She was tachycardic in the ED. Case discussed with ED provider and decision was made to admit patient for sepsis secondary to cellulitis. #Sepsis #Cellulitis #Suspected phlegmon ? Right lower abdomen about 10 x 8 cm erythema with central induration and purulent discharge. ? CT abdomen/pelvis does not show deep tissue infection, but there is central induration with purulent drainage. ? WBC 21.5 with tachycardia. ? IV vancomycin, ceftriaxone day 1. ? Follow-up wound cultures. ? General Surgery consulted for possible underlying phlegmon needing I&D versus debridement. N.p.o. at midnight. #Seizure disorder ? Resumed Keppra, topiramate. #GERD ? Resumed home PPI. Full code DVT prophylaxis: SCDs
[2024-05-01] MEDS: NICOTINE 14MG/24HRS PATCH 14 MG TD (22:20)
[2024-05-01] MEDS: PATIENT'S OWN HOME MEDICATION (Levetiracetam 1,000 mg tablet) 1000 EACH PO (22:37)
[2024-05-01] MEDS: TOPIRAMATE 200 MG 200 EACH PO (22:38)
[2024-05-01] MEDS: PANTOPRAZOLE 40MG TABLET 40 MG PO (22:38)
[2024-05-02] VITALS (20 sets, daily range): BP systolic 114–132; BP diastolic 49–85; PULSE 78–97; RESP 12–20; TEMP 36.6–37.3; O2SAT 93–99; BMI 47.7
[2024-05-02] MEDS: VANCOMYCIN HCL 2,500 MG in 0.9 % SODIUM CHLORIDE 500 ML 250 MG IV ×3 (00:36→23:40)
--- NOTE | 2024-05-02 04:24 | PC.NURSE ---
Pt. is alert and orientated x 4. Pt. has a cellulitits to left side of abdomen. open spot draining purulent drainage. area covered with gauze. Pt. getting IV antibiotics. Pt. medicated x 1 for pain. Pt. c/o some anxiety and wanted to smoke. Nicotine patch appled to left arm. Pt. NPO after midnight. c/o dry mouth. green oral swab offered.. Pt. sleeping at intervals. She states she usually stays up until 2 or 3 in the morning. VSS. Personal items and call park in reach.
--- NOTE | 2024-05-02 07:50 | P.CONPHA_ITS ---
Pharmacy Intervention Comments: Home medication list verified using list from [facility]
--- NOTE | 2024-05-02 07:50 | HMH.PHAINT1 ---
Pharmacy Intervention Comments: Home medication list verified using list from [facility]
[2024-05-02 08:18] LABS: Basophils # 0.1 K/mm3 (0-0.2); Basophils % 0.9 % (0.1-2.0); Eosinophils # 0.5 K/mm3 (0.0-0.4); Eosinophils % 3.8 % (0.1-12.0); Hematocrit 37.6 % (37.0-47.0); Lymphocytes # 1.3 K/mm3 (0.7-4.5); Lymphocytes % 9.7 % (10-50); Mean Corpuscular HGB Conc 32.4 g/dL (31.8-35.4); Mean Corpuscular Hemoglobin 26.8 pg (27.0-31.2); Mean Corpuscular Volume 82.5 fl (81-99); Mean Platelet Volume 10.8 fl (7.4-10.4); Monocytes # 0.8 K/mm3 (0.1-1.0); Monocytes % 6.1 % (1.7-9.3); Neutrophils # 10.8 K/mm3 (1.8-7.8); Neutrophils % 78.7 % (37.0-80.0); Platelet Count 240 K/mm3 (142-424); Red Blood Count 4.56 M/mm3 (4.20-5.40); Red Cell Distribution Width 14.3 % (11.5-17.5); White Blood Count 13.8 K/mm3 (4.8-10.8)
[2024-05-02 08:23] LABS: Hemoglobin 12.2 g/dL (12.2-16.2)
[2024-05-02] MEDS: levETIRAcetam 500 MG TABLET 1000 MG PO ×2 (08:32→22:46)
[2024-05-02] MEDS: NICOTINE 14MG/24HRS PATCH 14 MG TD (08:32)
[2024-05-02] MEDS: TOPIRAMATE 100MG TABLET 200 MG PO ×2 (08:32→22:46)
[2024-05-02] MEDS: CEFTRIAXONE 1 GM 1 GM in 0.9 % SODIUM CHLORIDE 50 ML IV (08:36)
[2024-05-02 08:38] LABS: Albumin Level 3.1 g/dl (3.5-5.0); Chloride 113 mmol/L (98-107); Potassium 3.5 mmoL/L (3.5-5.1); Sodium 138 mmol/L (136-145)
[2024-05-02 08:41] LABS: Alanine Aminotransferase 19 U/L (12-78); Alkaline Phosphatase 104 U/L (38-126); Anion Gap 14.5 mEq/L (5-15); Aspartate Amino Transferase 29 U/L (14-36); Bilirubin,Total 0.2 mg/dl (0.2-1.3); Blood Urea Nitrogen 6 mg/dl (7-17); Calcium 8.2 mg/dl (8.4-10.2); Carbon Dioxide 14 mmol/L (22.0-30.0); Creatinine Clearance Estimated 112 mL/min (50-200); Estimated Glomerular Filt Rate 113 ml/min (>60); GFR (African American) 137 ML/MIN (>60); Globulin 3.2 g/dL (1.3-3.2); Glucose 93 mg/dl (74-100); Magnesium 1.8 mg/dl (1.6-2.3); Total Protein,Serum 6.3 g/dl (6.3-8.2)
--- NOTE | 2024-05-02 11:19 | P.CONS_ITS ---
History of Present Illness *Admission Date: 05/01/24 *Reason for visit:: Sepsis, cellulitis, suspected under phlegmon *History of present illness: Patient is a 38-year-old female with history of seizure disorder, GERD, smoker, BMI 48 who presented to the emergency department in the afternoon of 05/01/2024 with a 1 week history of soft tissue infection of the abdominal wall in the right lower quadrant. She stated it started as a small knot which progressively became more erythematous and tender and began draining pus. She was noted to have a white blood cell count of 21,500. She had some tachycardia. She had a CT scan which revealed skin thickening and subcutaneous fat stranding in the right anterior abdominal wall compatible with dermatitis/cellulitis. There was no evidence of underlying abscess or necrotizing soft tissue infection. She was admitted for inpatient management. She was started on antibiotics consisting of ceftriaxone and vancomycin. She has shown improvement in her tachycardia and leukocytosis. Surgical consultation was obtained. [facility] Disclaimer: The information contained in this section may have been updated after the patient was seen, as this information can be updated by other users. Medical History Cholecystitis ADHD Depression Anxiety GERD (gastroesophageal reflux disease) Seizure disorder Surgical History History of tonsillectomy History of Family History (Updated 05/01/24 @ 16:48 by Katherine Montalvo RN) Other Alcohol abuse Family history of cancer Social History (Updated 05/01/24 @ 16:49 by Ktaherine Montalvo RN) Smoking Status: Current every day smoker alcohol intake: former current occupational status: unemployed Travel in the last 8 weeks: None Have you lived/traveled outside [place] in past 30 days?: No Contact w/someone who lives/traveled outside US past 30 days?: No Exposure to someone with infectious disease in past 14 days?: No Do you have a fever (greater than 100.4 F or 38 C)?: No Have you tested positive for COVID-19: No Exposed to someone with COVID-19 in past 14 days?: No Do you have a sore throat?: No Do you have a cough?: No Do you have any weakness?: No Do you have any diarrhea?: No Are you experiencing any unusual bleeding?: No Do you have any muscle aches/pain?: No Do you have any abdominal pain?: No Are you experiencing loss of taste or smell?: No Meds Home Medications and Allergies Home Medications ?Medication ?Instructions ?Recorded ?Confirmed ?Type cyanocobalamin (vitamin B-12) 1,000 mcg PO DAILY 03/02/24 05/01/24 History 1,000 mcg tablet ferrous sulfate 325 mg (65 mg 325 mg PO DAILY 03/02/24 05/01/24 History iron) tablet (FeroSul) hydroxyzine HCl 50 mg tablet 50 mg PO DAILY 03/02/24 05/01/24 History levetiracetam 1,000 mg tablet 1,000 mg PO BID 03/02/24 05/01/24 History sucralfate 1 gram tablet 1 g PO ACHS 03/02/24 05/02/24 History topiramate 200 mg tablet 200 mg PO BID 03/02/24 05/01/24 History famotidine 20 mg tablet (Pepcid) 20 mg PO BID 05/01/24 05/01/24 History omeprazole 40 mg capsule,delayed 40 mg PO DAILY 05/01/24 05/01/24 History release New Prescriptions to Start Prescriptions: Allergies Allergy/AdvReac Type Severity Reaction Status Date / Time cyclobenzaprine (From Allergy Unknown Verified 05/01/24 11:18 Flexeril) allergy reaction prednisone Allergy Unknown Verified 05/01/24 11:18 allergy reaction Exam (Inpt) Vital signs and Labs for Last 24 Hours: Temp Pulse Resp BP Pulse Ox O2 Del Method 98.4 F 92 H 20 132/79 97 Room Air 05/02/24 08:00 05/02/24 08:00 05/02/24 08:00 05/02/24 08:00 05/02/24 08:00 05/02/24 10:24 Laboratory Results - last 24 hr 05/01/24 11:01: WBC 21.5 H*, RBC 5.13, Hgb 14.1, Hct 42.0, MCV 81.9, MCH 27.5, MCHC 33.6, RDW 14.1, Plt Count 316, MPV 10.7 H, Neut % (Auto) 82.1 H, Lymph % (Auto) 9.1 L, [place] % (Auto) 6.6, Eos % (Auto) 0.8, Baso % (Auto) 0.7, Neut # (Auto) 17.7 H, Lymph # (Auto) 2.0, [place] # (Auto) 1.4 H, Eos # (Auto) 0.2, Baso # (Auto) 0.1, Total Counted 100, Neutrophils % (Manual) 81 H, Lymphocytes % (Manual) 16, Monocytes % (Manual) 3, Platelet Estimate Normal, RBC Morphology Normal, Sodium 140, Potassium 3.2 L, Chloride 109 H, Carbon Dioxide 19 L, Anion Gap 15.2 H, BUN 9, Creatinine 0.70, Estimated Creat Clear 96, Estimated GFR 95, Est GFR ( Amer) 115, Glucose 115 H, Lactate 1.2, Calcium 9.2, Total Bilirubin 0.7, AST 27, ALT 20, Alkaline Phosphatase 100, Total Protein 7.6, Albumin 3.9, Globulin 3.7 H, Albumin/Globulin Ratio 1.1 05/01/24 12:31: Urine HCG, Qual Negative 05/02/24 07:30: WBC 13.8 H D, RBC 4.56, Hgb 12.2 D, Hct 37.6, MCV 82.5, MCH 26.8 L, MCHC 32.4, RDW 14.3, Plt Count 240, MPV 10.8 H, Neut % (Auto) 78.7, L ymph % (Auto) 9.7 L, [place] % (Auto) 6.1, Eos % (Auto) 3.8, Baso % (Auto) 0.9, N eut # (Auto) 10.8 H, Lymph # (Auto) 1.3, [place] # (Auto) 0.8, Eos # (Auto) 0.5 H, Baso # (Auto) 0.1, Sodium 138, Potassium 3.5, Chloride 113 H, Carbon Dioxide 14 L, Anion Gap 14.5, BUN 6 L D, Creatinine 0.60, Estimated Creat Clear 112, Estimated GFR 113, Est GFR ( Amer) 137, Glucose 93, Calcium 8.2 L, Magnesium 1.8, Total Bilirubin 0.2, AST 29, ALT 19, Alkaline Phosphatase 104, Total Protein 6.3, Albumin 3.1 L D, Globulin 3.2, Albumin/Globulin Ratio 1.0 L I & O for Labs for Last 24 Hours: Intake & Output 04/29/24 04/30/24 05/01/24 05/02/24 11:59 11:59 11:59 11:59 Intake Total 480 / 480 Output Total 0 / 0 Balance 480 / 480 Weight 280 lb 279 lb 10.855 oz Microbiology Reports for the Last 24 Hours: Microbiology 05/01/24 11:23 Abdomen Gram Stain - Final 05/01/24 11:23 Abdomen Wound Culture - Preliminary Gram Positive Cocci Comment:: On the right lower abdomen and pannus area there is a widespread area of cellulitis. There is an area of skin necrosis with actively draining pus with some regional induration. Results Labs 05/02/24 07:30 05/02/24 07:30 Labs: Laboratory Results - last 24 hr 05/01/24 11:01: WBC 21.5 H*, RBC 5.13, Hgb 14.1, Hct 42.0, MCV 81.9, MCH 27.5, MCHC 33.6, RDW 14.1, Plt Count 316, MPV 10.7 H, Neut % (Auto) 82.1 H, Lymph % (Auto) 9.1 L, [place] % (Auto) 6.6, Eos % (Auto) 0.8, Baso % (Auto) 0.7, Neut # (Auto) 17.7 H, Lymph # (Auto) 2.0, [place] # (Auto) 1.4 H, Eos # (Auto) 0.2, Baso # (Auto) 0.1, Total Counted 100, Neutrophils % (Manual) 81 H, Lymphocytes % (Manual) 16, Monocytes % (Manual) 3, Platelet Estimate Normal, RBC Morphology Normal, Sodium 140, Potassium 3.2 L, Chloride 109 H, Carbon Dioxide 19 L, Anion Gap 15.2 H, BUN 9, Creatinine 0.70, Estimated Creat Clear 96, Estimated GFR 95, Est GFR ( Amer) 115, Glucose 115 H, Lactate 1.2, Calcium 9.2, Total Bilirubin 0.7, AST 27, ALT 20, Alkaline Phosphatase 100, Total Protein 7.6, Albumin 3.9, Globulin 3.7 H, Albumin/Globulin Ratio 1.1 05/01/24 12:31: Urine HCG, Qual Negative 05/02/24 07:30: WBC 13.8 H D, RBC 4.56, Hgb 12.2 D, Hct 37.6, MCV 82.5, MCH 26.8 L, MCHC 32.4, RDW 14.3, Plt Count 240, MPV 10.8 H, Neut % (Auto) 78.7, L ymph % (Auto) 9.7 L, [place] % (Auto) 6.1, Eos % (Auto) 3.8, Baso % (Auto) 0.9, N eut # (Auto) 10.8 H, Lymph # (Auto) 1.3, [place] # (Auto) 0.8, Eos # (Auto) 0.5 H, Baso # (Auto) 0.1, Sodium 138, Potassium 3.5, Chloride 113 H, Carbon Dioxide 14 L, Anion Gap 14.5, BUN 6 L D, Creatinine 0.60, Estimated Creat Clear 112, Estimated GFR 113, Est GFR ( Amer) 137, Glucose 93, Calcium 8.2 L, Magnesium 1.8, Total Bilirubin 0.2, AST 29, ALT 19, Alkaline Phosphatase 104, Total Protein 6.3, Albumin 3.1 L D, Globulin 3.2, Albumin/Globulin Ratio 1.0 L Assessment and Plan *Assessment and plan (1) Sepsis due to skin infection: Status: Acute Category: Medical Code(s): A41.9 - Sepsis, unspecified organism; L08.9 - Local infection of the skin and subcutaneous tissue, unspecified Plan Plan for incision and drainage and debridement.
[2024-05-02] MEDS: LIDOCAINE 1% 20ML MDV 20 ML (13:02)
[2024-05-02] MEDS: ROPIVACAINE 0.5% 30ML VIAL 150 MG (13:02)
--- NOTE | 2024-05-02 13:21 | EXP.OP.NOTE ---
Date of procedure: 05/02/24 Pre-op Diagnosis:: Soft tissue infection right lower abdomen Post-op Diagnosis:: Abscess and soft tissue infection right lower abdomen Procedure performed:: Incision and drainage complex abdominal wall abscess with debridement of skin and subcutaneous tissues using electrocautery Surgeon:: Jason Carrion MD PRESS ROOM SUPERVISOR:: Bud Malik Anesthesia: LMA Estimated blood loss (mL): 30 Operative findings:: Likely consistent with large abscessed sebaceous cyst with secondary focal necrotizing cellulitis Operative note:: Consent was obtained patient was taken the operating room. She was given preoperative intravenous antibiotic. In the operating room she was placed in a supine position maintained on the hospital bed. General anesthesia was induced via LMA. The area was prepped and draped in the standard surgical fashion. At the site of necrosis circular incision was made using electrocautery. There was thick pus which exuded from the wound. This was sent for cultures. Circular incision was made. There was some deep tracking consistent with subcutaneous abscess. Large amount of pus was evacuated. Probing was performed to free any loculations and perform finger dissection. There was some undermining laterally and this was unroofed incising the skin and superficial subcutaneous tissues with electrocautery. Wound was then thoroughly irrigated with nearly 3 L of pulsatile saline irrigation using the InterPulse device. Hemostasis was achieved with electrocautery. Wound was packed with a dry Kerlix and covered with clean dry sterile dressing. Condition: stable Disposition: PACU Complications:: None immediately apparent
--- NOTE | 2024-05-02 13:26 | EXP.ANES.CKL ---
[facility] Disclaimer: The information contained in this section may have been updated after the patient was seen, as this information can be updated by other users. Medical History Cholecystitis ADHD Depression Anxiety GERD (gastroesophageal reflux disease) Seizure disorder Surgical History History of tonsillectomy History of Family History (Updated 05/01/24 @ 16:48 by Katherine Montalvo RN) Other Alcohol abuse Family history of cancer Social History (Updated 05/01/24 @ 16:49 by Katherine Montalvo RN) Smoking Status: Current every day smoker alcohol intake: former substance use type: denies use current occupational status: unemployed Travel in the last 8 weeks: None [facility] Anesthesia Checklist Patient Identification Patient Identification: Verbal (Name & ) Structural Data Admitted From: Inpatient Planned Operative Procedure/s: i/d abdoman Consent for Planned Operative Procedure(s) Verified: Yes NPO Status Verified Time NPO: 00:00 Airway Assessment Mallampati Score:: Class II C-Spine Mobility Assessed: Yes TMJ Mobility Assessed: Yes Dentition: Poor Dentition Neurological Assessment Level of Consciousness: Awake, Alert and Appropriate Anesthesia Plan Anesthesia Risk discussed: Yes Anesthesia Plan: Verified ASA Class: III Anesthesia Type: General
--- NOTE | 2024-05-02 13:27 | P.PNANES_ITS ---
[facility] Anesthesia Record Part I Anesthesia Record I Intake, IV Amount: 500 Hydration: Adequate Estimated blood loss (mL): 0 Urine output (mL): 0 Blood Pressure: 116/80 SaO2: 94 Pulse Rate: 86 Airway Patency: Patent Respiratory Rate: 12 Temperature: 98 F Patient is:: Drowsy and Stable Stable to PACU at:: 13:20
--- NOTE | 2024-05-02 16:25 | P.PN_ITS ---
Subjective *Date: 05/02/24 *Time: 16:25 Exam Data for Last 24 hours Vital signs and Labs for Last 24 Hours: Temp Pulse Resp BP Pulse Ox O2 Del Method 98 F 78 17 123/74 94 L Room Air 05/02/24 13:28 05/02/24 13:50 05/02/24 13:50 05/02/24 13:50 05/02/24 13:50 05/02/24 13:50 Laboratory Results - last 24 hr 05/02/24 07:30: WBC 13.8 H D, RBC 4.56, Hgb 12.2 D, Hct 37.6, MCV 82.5, MCH 26.8 L, MCHC 32.4, RDW 14.3, Plt Count 240, MPV 10.8 H, Neut % (Auto) 78.7, Lymph % (Auto) 9.7 L, [place] % (Auto) 6.1, Eos % (Auto) 3.8, Baso % (Auto) 0.9, Neut # (Auto) 10.8 H, Lymph # (Auto) 1.3, [place] # (Auto) 0.8, Eos # (Auto) 0.5 H, Baso # (Auto) 0.1, Sodium 138, Potassium 3.5, Chloride 113 H, Carbon Dioxide 14 L, Anion Gap 14.5, BUN 6 L D, Creatinine 0.60, Estimated Creat Clear 112, Estimated GFR 113, Est GFR ( Amer) 137, Glucose 93, Calcium 8.2 L, Magnesium 1.8, Total Bilirubin 0.2, AST 29, ALT 19, Alkaline Phosphatase 104, Total Protein 6.3, Albumin 3.1 L D, Globulin 3.2, Albumin/Globulin Ratio 1.0 L I & O for Last 24 hours: Intake & Output 04/29/24 04/30/24 05/01/24 05/02/24 23:59 23:59 23:59 23:59 Intake Total 480 / 480 500 / 500 Output Total 0 / 0 Balance 480 / 480 500 / 500 Weight 127.006 kg 126.86 kg Microbiology Reports for the Last 24 Hours: Microbiology 05/02/24 12:51 Abdomen Gram Stain - Final 05/01/24 11:17 Blood Blood Culture - Preliminary NO GROWTH AFTER 24 HOURS 05/01/24 11:23 Blood Blood Culture - Preliminary NO GROWTH AFTER 24 HOURS 05/01/24 11:23 Abdomen Gram Stain - Final 05/01/24 11:23 Abdomen Wound Culture - Preliminary Gram Positive Cocci Constitutional Constitutional: no acute distress and obese *Routine HEENT Exam Head: Present normocephalic Eye: Present EOMI and PERRL ENT: Present mucous membranes moist *Routine Neck Exam Neck: Present supple; Absent lymphadenopathy *Routine Respiratory Exam Respiratory: Present CTA bilaterally *Routine Cardiovascular Exam Cardiovascular: Present RRR *Routine Abdominal Exam Abdominal: Present soft, normoactive bowel sounds and tenderness Comments: Right lower abdomen about 10 x 8 cm erythema with central induration and purulent discharge. *Routine Extremities Exam Extremities: Absent cyanosis, clubbing or edema *Routine Skin Exam Skin: Present warm; Absent rash *Routine Neurological Exam Neurological: Present alert and oriented X3 Assessment and Plan *Assessment and plan (1) Sepsis due to skin infection: Status: Acute Category: Medical Code(s): A41.9 - Sepsis, unspecified organism; L08.9 - Local infection of the skin and subcutaneous tissue, unspecified Plan Kandace Ring is a 38-year-old female with a medical history significant for seizure disorder, GERD who presents with cellulitis of her abdomen for the past week. She states it started as a small knot which progressively became more erythematous, tender and draining purulence over the past. She denies any trauma, needlesticks, or similar infections in the past. Workup in the ED significant for WBC 21.5, AGAP 15, CT abdomen/pelvis not showing deep soft tissue infection. She was tachycardic in the ED. Case discussed with ED provider and decision was made to admit patient for sepsis secondary to cellulitis. #Sepsis #Cellulitis #Large abscessed sebaceous cyst, secondary focal necrotizing cellulitis ? Presented with right lower abdomen about 10 x 8 cm erythema with central induration and purulent discharge. ? CT abdomen/pelvis does not show deep tissue infection, but there is central induration with purulent drainage. ? S/p I&D with Dr. Carrion on 05/02/2024 showing abscessed sebaceous cyst with secondary focal necrotizing cellulitis. ? WBC improved to 13, peaked at 21.5. Tachycardia resolved. ? IV vancomycin, ceftriaxone day 2. ? Follow-up wound, surgical cultures. #Seizure disorder ? Resumed Keppra, topiramate. #GERD ? Resumed home PPI. Full code DVT prophylaxis: SCDs, avoiding at this time Lovenox/heparin given cellulitis as above
--- NOTE | 2024-05-02 18:03 | PC.NURSE ---
aox4, not requiring o2 support. i&d performed today. vss and has denied pain since arrival to the floor from pacu. seizure pads in place.
[2024-05-02] MEDS: HYDROCODONE/APAP 5/325 MG TABLET 2 TAB PO (22:56)
[2024-05-02] MEDS: PANTOPRAZOLE 40MG TABLET 40 MG PO (22:56)
[2024-05-02 23:22] LABS: Vancomycin,Trough 13.5 ug/mL (5.0-10.0)
[2024-05-03 00:05] VITALS: BP 140/69; PULSE 94; RESP 18; TEMP 36.9; O2SAT 99
[2024-05-03] MEDS: PHA TO NURSING INSTRUCTION 1 EACH NOTAPPLIC (00:05)
[2024-05-03 04:00] VITALS: BP 122/72; PULSE 82; RESP 16; TEMP 36.8; O2SAT 100; BMI 47.9
--- NOTE | 2024-05-03 06:41 | PC.NURSE ---
Pt. is alert and orientated x 4. Pt. on room air. Went to OR yesterday for ID of left sided abdominal abcess. wound deep and was packed with dry kerlex. covered with 4x4's and ABD pad. dressing changed overnight. repacked with kerlex 4x4's and ABD pad. Pt. very concerned about the open wound on the abdomen. She states she did not know it would look like it does. she is very anxious about the wound. Pt. medicated once for pain. Pt. getting IV antibiotics. VSS. Personal items and call park in reach.
[2024-05-03 07:23] LABS: Basophils # 0.1 K/mm3 (0-0.2); Basophils % 0.7 % (0.1-2.0); Eosinophils # 0.6 K/mm3 (0.0-0.4); Eosinophils % 4.1 % (0.1-12.0); Hematocrit 37.2 % (37.0-47.0); Hemoglobin 12.1 g/dL (12.2-16.2); Lymphocytes # 1.5 K/mm3 (0.7-4.5); Lymphocytes % 10.8 % (10-50); Mean Corpuscular HGB Conc 32.5 g/dL (31.8-35.4); Mean Corpuscular Hemoglobin 26.8 pg (27.0-31.2); Mean Corpuscular Volume 82.5 fl (81-99); Mean Platelet Volume 10.2 fl (7.4-10.4); Monocytes # 1.1 K/mm3 (0.1-1.0); Monocytes % 7.7 % (1.7-9.3); Neutrophils # 10.3 K/mm3 (1.8-7.8); Neutrophils % 75.8 % (37.0-80.0); Platelet Count 328 K/mm3 (142-424); Red Blood Count 4.51 M/mm3 (4.20-5.40); Red Cell Distribution Width 14.3 % (11.5-17.5); White Blood Count 13.6 K/mm3 (4.8-10.8)
[2024-05-03 07:35] LABS: Alanine Aminotransferase 17 U/L (12-78); Albumin Level 3.2 g/dl (3.5-5.0); Albumin/Globulin Ratio 1.1 (1.1-1.8); Alkaline Phosphatase 82 U/L (38-126); Anion Gap 10.5 mEq/L (5-15); Aspartate Amino Transferase 18 U/L (14-36); Bilirubin,Total 0.4 mg/dl (0.2-1.3); Blood Urea Nitrogen 4 mg/dl (7-17); Calcium 8.6 mg/dl (8.4-10.2); Carbon Dioxide 17 mmol/L (22.0-30.0); Chloride 113 mmol/L (98-107); Creatinine Clearance Estimated 112 mL/min (50-200); Estimated Glomerular Filt Rate 113 ml/min (>60); GFR (African American) 137 ML/MIN (>60); Glucose 101 mg/dl (74-100); Magnesium 1.9 mg/dl (1.6-2.3); Potassium 3.5 mmoL/L (3.5-5.1); Sodium 137 mmol/L (136-145); Total Protein,Serum 6.2 g/dl (6.3-8.2)
[2024-05-03 08:00] VITALS: BP 114/72; PULSE 84; RESP 20; TEMP 36.9; O2SAT 99
--- NOTE | 2024-05-03 08:19 | PC.NURSE ---
Addendum entered by Ashley Castro RN 05/03/24 18:35: pt dressing remains c/d/i. pt complained of pain once this shift and was treated per jun. has ambulated to br numerous times with standby assistance. iv abx given per jun. no needs or complaints at this time. call light within reach. Original Note: dressing removed and change completed at the bedside by Dr. Carrion. kerlex packed inside wound, 4x4 and abd pad on top, covered in tape.
[2024-05-03] MEDS: NICOTINE 14MG/24HRS PATCH 14 MG TD (08:34)
[2024-05-03] MEDS: HYDROCODONE/APAP 5/325 MG TABLET 2 TAB PO ×2 (08:34→20:04)
[2024-05-03] MEDS: TOPIRAMATE 100MG TABLET 200 MG PO ×2 (08:35→20:04)
[2024-05-03] MEDS: levETIRAcetam 500 MG TABLET 1000 MG PO ×2 (08:35→20:04)
[2024-05-03] MEDS: CEFTRIAXONE 1 GM 1 GM in 0.9 % SODIUM CHLORIDE 50 ML IV (08:35)
[2024-05-03 08:36] LABS: Hemoglobin A1C 5.4 % (4.0-6.0)
--- NOTE | 2024-05-03 08:43 | P.PN_ITS ---
Subjective Narrative: Complains of some soreness at surgical site Exam Data for Last 24 hours Vital signs and Labs for Last 24 Hours: Temp Pulse Resp BP Pulse Ox O2 Del Method O2 Flow Rate 98.2 F 82 16 122/72 100 Room Air 94 05/03/24 04:00 05/03/24 04:00 05/03/24 04:00 05/03/24 04:00 05/03/24 04:00 05/03/24 06:47 05/02/24 18:45 Laboratory Results - last 24 hr 05/02/24 07:30: Carbon Dioxide 14 L, Anion Gap 14.5, BUN 6 L D, Creatinine 0.60, Estimated Creat Clear 112, Estimated GFR 113, Est GFR ( Amer) 137, Glucose 93, Calcium 8.2 L, Magnesium 1.8, Total Bilirubin 0.2, AST 29, ALT 19, Alkaline Phosphatase 104, Total Protein 6.3, Globulin 3.2, Albumin/Globulin Rat io 1.0 L 05/02/24 22:37: Vancomycin Trough 13.5 H 05/03/24 06:53: WBC 13.6 H, RBC 4.51, Hgb 12.1 L, Hct 37.2, MCV 82.5, MCH 26.8 L , MCHC 32.5, RDW 14.3, Plt Count 328 D, MPV 10.2, Neut % (Auto) 75.8, Lymph % (Auto) 10.8, [place] % (Auto) 7.7, Eos % (Auto) 4.1, Baso % (Auto) 0.7, Neut # (Auto) 10.3 H, Lymph # (Auto) 1.5, [place] # (Auto) 1.1 H, Eos # (Auto) 0.6 H, Baso # (Auto) 0.1, Sodium 137, Potassium 3.5, Chloride 113 H, Carbon Dioxide 17 L, Anion Gap 10.5, BUN 4 L D, Creatinine 0.60, Estimated Creat Clear 112, Estimated GFR 113, Est GFR ( Amer) 137, Glucose 101 H, Hemoglobin A1c 5.4, Calcium 8.6, Magnesium 1.9, Total Bilirubin 0.4, AST 18 D, ALT 17, Alkaline Phosphatase 82, Total Protein 6.2 L, Albumin 3.2 L, Globulin 3.0, Albumin/Globulin Ratio 1.1 I & O for Last 24 hours: Intake & Output 04/30/24 05/01/24 05/02/24 05/03/24 11:59 11:59 11:59 11:59 Intake Total 480 / 480 740 / 740 Output Total 0 / 0 0 / 0 Balance 480 / 480 740 / 740 Weight 280 lb 279 lb 10.855 oz 281 lb 1.43 oz Microbiology Reports for the Last 24 Hours: Microbiology 05/02/24 12:51 Abdomen Gram Stain - Final 05/02/24 12:51 Abdomen Abscess Culture - Preliminary 05/01/24 11:23 Abdomen Gram Stain - Final 05/01/24 11:23 Abdomen Wound Culture - Final Staphylococcus aureus 05/01/24 11:17 Blood Blood Culture - Preliminary NO GROWTH AFTER 24 HOURS 05/01/24 11:23 Blood Blood Culture - Preliminary NO GROWTH AFTER 24 HOURS *Routine Skin Exam Comments: Still with some appreciable erythema and induration. Dressing change performed at bedside did no evidence of any definite necrosis or residual undrained pus. Progress Note: A&P Assessment and plan (1) Sepsis due to skin infection: Status: Acute Assessment and plan: Still with appreciable induration and cellulitis but no necrosis or purulence. Continue antibiotics. Dressing changes. Cultures pending.
[2024-05-03 08:57] LABS: Procalcitonin 0.081 ng/mL (0.0-2.0)
[2024-05-03] MEDS: MAGNESIUM SULFATE IN WATER 2 GM/50 ML PIGGYBACK IV (09:07)
[2024-05-03 11:07] LABS: Vancomycin,Trough 12.9 ug/mL (5.0-10.0)
--- NOTE | 2024-05-03 12:00 | P.CONPHA_ITS ---
Pharmacy Consult Date: 05/03/24 Time: 12:00 Referring provider: DR. CHE Reason for Consult:: VANCOMYCIN LEVEL Allergies Allergy/AdvReac Type Severity Reaction Status Date / Time cyclobenzaprine (From Allergy Unknown Verified 05/01/24 11:18 Flexeril) allergy reaction prednisone Allergy Unknown Verified 05/01/24 11:18 allergy reaction Home Medications ?Medication ?Instructions ?Recorded ?Confirmed ?Type cyanocobalamin (vitamin B-12) 1,000 mcg PO DAILY 03/02/24 05/01/24 History 1,000 mcg tablet ferrous sulfate 325 mg (65 mg 325 mg PO DAILY 03/02/24 05/01/24 History iron) tablet (FeroSul) hydroxyzine HCl 50 mg tablet 50 mg PO DAILY 03/02/24 05/01/24 History levetiracetam 1,000 mg tablet 1,000 mg PO BID 03/02/24 05/01/24 History sucralfate 1 gram tablet 1 g PO ACHS 03/02/24 05/02/24 History topiramate 200 mg tablet 200 mg PO BID 03/02/24 05/01/24 History famotidine 20 mg tablet (Pepcid) 20 mg PO BID 05/01/24 05/01/24 History omeprazole 40 mg capsule,delayed 40 mg PO DAILY 05/01/24 05/01/24 History release New Prescriptions to Start Prescriptions: Height: 1.63 m Weight: 127.5 kg Laboratory Results:: Laboratory Results - last 24 hr 05/02/24 22:37: Vancomycin Trough 13.5 H 05/03/24 06:53: WBC 13.6 H, RBC 4.51, Hgb 12.1 L, Hct 37.2, MCV 82.5, MCH 26.8 L , MCHC 32.5, RDW 14.3, Plt Count 328 D, MPV 10.2, Neut % (Auto) 75.8, Lymph % (Auto) 10.8, [place] % (Auto) 7.7, Eos % (Auto) 4.1, Baso % (Auto) 0.7, Neut # (Auto) 10.3 H, Lymph # (Auto) 1.5, [place] # (Auto) 1.1 H, Eos # (Auto) 0.6 H, Baso # (Auto) 0.1, Sodium 137, Potassium 3.5, Chloride 113 H, Carbon Dioxide 17 L, Anion Gap 10.5, BUN 4 L D, Creatinine 0.60, Estimated Creat Clear 112, Estimated GFR 113, Est GFR ( Amer) 137, Glucose 101 H, Hemoglobin A1c 5.4, Calcium 8.6, Magnesium 1.9, Total Bilirubin 0.4, AST 18 D, ALT 17, Alkaline Phosphatase 82, Total Protein 6.2 L, Albumin 3.2 L, Globulin 3.0, Albumin/Globulin Ratio 1.1, Procalcitonin 0.081 05/03/24 10:40: Vancomycin Trough 12.9 H Medical History: Medical History (Updated 05/01/24 @ 16:46 by Katherine Montalvo RN) Cholecystitis ADHD Depression Anxiety GERD (gastroesophageal reflux disease) Seizure disorder Assessment and Plan Assessment and plan all Dx Assessment and Plan for all problems:: PATIENT'S VANCOMYCIN TROUGH LEVEL WAS 12.9 MCG/ML THIS AM. RECOMMEND CONTINUING WITH VANCOMYCIN 2500 MG Q12H AT THIS TIME.
[2024-05-03] MEDS: VANCOMYCIN HCL 2,500 MG in 0.9 % SODIUM CHLORIDE 500 ML 250 MG IV ×2 (12:16→22:03)
--- NOTE | 2024-05-03 12:49 | EXP.ACUTE.PN ---
Subjective *Date: 05/03/24 *Time: 16:52 Interval history: Stable on room air still complains of pain at site of I&D. Necessitating twice daily dressing changes today. White count improving but still elevated. No fever overnight. Surgery assisting with care. Tolerating p.o. intake. Medical Exam Vital signs and Labs for Last 24 Hours: Vital Signs Temp Pulse Pulse Resp BP BP Pulse Ox 05/03/24 08:00 98.4 F 84 20 114/72 99 05/03/24 06:47 05/03/24 05:00 05/03/24 04:00 98.2 F 82 16 122/72 100 05/03/24 03:00 05/03/24 01:00 05/03/24 00:05 98.5 F 94 H 18 140/69 99 05/02/24 23:00 05/02/24 21:00 05/02/24 20:45 98.7 F 93 H 18 122/85 98 05/02/24 20:00 05/02/24 19:45 98.5 F 90 18 124/70 97 05/02/24 18:45 98.4 F 91 H 18 114/68 05/02/24 18:12 05/02/24 17:45 98.3 F 82 18 130/68 98 05/02/24 17:00 05/02/24 16:45 98.2 F 79 16 128/71 99 05/02/24 16:15 98 F 86 16 126/69 96 05/02/24 15:45 98.3 F 92 H 16 132/74 97 05/02/24 15:15 98.1 F 93 H 16 124/72 99 05/02/24 15:00 05/02/24 14:45 98.3 F 91 H 16 130/70 99 05/02/24 14:30 98.1 F 90 16 129/49 L 99 05/02/24 14:15 98 F 91 H 16 130/77 97 05/02/24 14:00 97.9 F 92 H 16 127/78 96 05/02/24 13:50 78 17 123/74 94 L 05/02/24 13:40 89 16 124/80 95 05/02/24 13:30 85 17 125/80 95 05/02/24 13:28 98 F 86 12 116/80 05/02/24 13:20 98.0 F 86 14 116/80 95 O2 Del Method O2 Flow Rate 05/03/24 08:00 Room Air 05/03/24 06:47 Room Air 05/03/24 05:00 Room Air 05/03/24 04:00 Room Air 05/03/24 03:00 Room Air 05/03/24 01:00 Room Air 05/03/24 00:05 Room Air 05/02/24 23:00 Room Air 05/02/24 21:00 Room Air 05/02/24 20:45 Room Air 05/02/24 20:00 Room Air 05/02/24 19:45 Room Air 05/02/24 18:45 Room Air 94 05/02/24 18:12 Room Air 05/02/24 17:45 Room Air 05/02/24 17:00 Room Air 05/02/24 16:45 Room Air 05/02/24 16:15 Room Air 05/02/24 15:45 Room Air 05/02/24 15:15 Room Air 05/02/24 15:00 Room Air 05/02/24 14:45 Room Air 05/02/24 14:30 Room Air 05/02/24 14:15 Room Air 05/02/24 14:00 05/02/24 13:50 Room Air 05/02/24 13:40 Room Air 05/02/24 13:30 Room Air 05/02/24 13:28 05/02/24 13:20 Room Air Intake and Output 05/02/24 05/03/24 05/03/24 23:59 07:59 15:59 Intake Total 240 / 740 240 / 240 Output Total 0 / 0 0 / 0 Balance 240 / 740 0 / 240 240 / 240 Intake: Intake, Oral Amount 240 / 240 240 / 240 Output: Output, Urine Amount 0 / 0 0 / 0 Other: Number of Unmeasured Voids 1 Weight 127.5 kg 127.5 kg Patient Weight 05/03/24 23:59 Weight 127.5 kg Laboratory Results - last 24 hr 05/02/24 22:37: Vancomycin Trough 13.5 H 05/03/24 06:53: WBC 13.6 H, RBC 4.51, Hgb 12.1 L, Hct 37.2, MCV 82.5, MCH 26.8 L, MCHC 32.5, RDW 14.3, Plt Count 328 D, MPV 10.2, Neut % (Auto) 75.8, Lymph % (Auto) 10.8, [place] % (Auto) 7.7, Eos % (Auto) 4.1, Baso % (Auto) 0.7, Neut # (Auto) 10.3 H, Lymph # (Auto) 1.5, [place] # (Auto) 1.1 H, Eos # (Auto) 0.6 H, Baso # (Auto) 0.1, Sodium 137, Potassium 3.5, Chloride 113 H, Carbon Dioxide 17 L, Anion Gap 10.5, BUN 4 L D, Creatinine 0.60, Estimated Creat Clear 112, Estimated GFR 113, Est GFR ( Amer) 137, Glucose 101 H, Hemoglobin A1c 5.4, Calcium 8.6, Magnesium 1.9, Total Bilirubin 0.4, AST 18 D, ALT 17, Alkaline Phosphatase 82, Total Protein 6.2 L, Albumin 3.2 L, Globulin 3.0, Albumin/Globulin Ratio 1.1, Procalcitonin 0.081 05/03/24 10:40: Vancomycin Trough 12.9 H I & O for Labs for Last 24 Hours: Intake & Output 04/30/24 05/01/24 05/02/24 05/03/24 23:59 23:59 23:59 23:59 Intake Total 480 / 480 740 / 740 240 / 240 Output Total 0 / 0 0 / 0 0 / 0 Balance 480 / 480 740 / 740 240 / 240 Weight 127.006 kg 126.86 kg 127.5 kg Microbiology Reports for the Last 24 Hours: Microbiology 05/01/24 11:17 Blood Blood Culture - Preliminary NO GROWTH AFTER 48 HOURS 05/01/24 11:23 Blood Blood Culture - Preliminary NO GROWTH AFTER 48 HOURS 05/02/24 12:51 Abdomen Gram Stain - Final 05/02/24 12:51 Abdomen Abscess Culture - Preliminary 05/01/24 11:23 Abdomen Gram Stain - Final 05/01/24 11:23 Abdomen Wound Culture - Final Staphylococcus aureus Constitutional: Present no acute distress, morbidly obese, chronically ill appearing and cooperative Head: Present atraumatic and normocephalic ENT: Present normal exam Respiratory: Present CTA bilaterally and normal respiratory effort; Absent rhonchi, stridor, wheezes or crackles Cardiac: Present Reg Rate and Rhythm GI: Present soft and normal bowel sounds; Absent distention or tenderness Extremities: Present normal inspection and full ROM Skin: Present intact; Absent erythema Comment:: Bandage in right lower abdomen/pannus. Induration around wound. Tender to palpation Neuro: Present Grossly Intact, alert, awake, oriented x 3 and moves all extremities Assessment and Plan *Assessment and plan (1) Sepsis due to skin infection: Status: Acute Category: Medical Code(s): A41.9 - Sepsis, unspecified organism; L08.9 - Local infection of the skin and subcutaneous tissue, unspecified (2) Morbid obesity: Status: Acute Category: Medical Code(s): E66.01 - Morbid (severe) obesity due to excess calories (3) Seizure disorder: Status: Acute Category: Medical Code(s): G40.909 - Epilepsy, unspecified, not intractable, without status epilepticus (4) GERD (gastroesophageal reflux disease): Status: Acute Category: Medical Code(s): K21.9 - Gastro-esophageal reflux disease without esophagitis (5) Depression: Status: Acute Category: Medical Code(s): F32.A - Depression, unspecified Plan Kandace Ring is a 38-year-old female with a medical history significant for seizure disorder, GERD who presents with cellulitis of her abdomen for the past week. She states it started as a small knot which progressively became more erythematous, tender and draining purulence over the past. She denies any trauma, needlesticks, or similar infections in the past. Workup in the ED significant for WBC 21.5, AGAP 15, CT abdomen/pelvis not showing deep soft tissue infection. She was tachycardic in the ED. Case discussed with ED provider and decision was made to admit patient for sepsis secondary to cellulitis. Tolerated I&D well. Continuing IV antibiotics. Anticipate discharge tomorrow. Problems addressed as follows: #Sepsis #Cellulitis #Large abscessed sebaceous cyst, secondary focal necrotizing cellulitis ? Presented with right lower abdomen about 10 x 8 cm erythema with central induration and purulent discharge. ? CT abdomen/pelvis does not show deep tissue infection, but there is central induration with purulent drainage. ? S/p I&D with Dr. Carrion on 05/02/2024 showing abscessed sebaceous cyst with secondary focal necrotizing cellulitis. ? White count 14 today. Repeat CBC, CMP, magnesium ordered for the morning. -Kidney function normal with BUN 4, creatinine 0.6. -Wound culture positive for MSSA -Given extent of wound, will continue IV vancomycin, ceftriaxone for 1 more day, plan to transition to Augmentin at discharge to complete 7 to 10 days total -Discussed case with surgery today, recommend that patient Will need dressing changes at least daily. Plan to return to the hospital as an outpatient. #Seizure disorder: Continue Keppra, topiramate. #GERD: Continue home PPI. Obesity complicates all aspects of her care Full code DVT prophylaxis: SCDs, avoiding at this time Lovenox/heparin given cellulitis as above
--- NOTE | 2024-05-03 13:25 | CARE MANAGER ---
Addendum entered by Paris Knott RN 05/03/24 13:33: Per Callie @ [facility], they will transport patient for daily drsg changes as long as weather permits. Original Note: Per Dr. Carrion, ordered drsg changes can be done once daily as an outpatient.
[2024-05-03 16:00] VITALS: BP 120/69; PULSE 82; RESP 18; TEMP 36.6; O2SAT 100
[2024-05-03 20:00] VITALS: BP 115/74; PULSE 93; RESP 18; TEMP 37; O2SAT 99
[2024-05-03] MEDS: PANTOPRAZOLE 40MG TABLET 40 MG PO (20:04)
[2024-05-04] VITALS: BP 159/76; PULSE 80; RESP 18; TEMP 36.6; O2SAT 99
[2024-05-04] MEDS: HYDROCODONE/APAP 5/325 MG TABLET 2 TAB PO ×2 (01:32→07:44)
[2024-05-04 04:00] VITALS: BP 140/73; PULSE 81; RESP 18; TEMP 36.6; O2SAT 98; BMI 45.7
--- NOTE | 2024-05-04 05:11 | PC.NURSE ---
Alert and oriented. Dressing changed 2200, patient tolerated well, kerlix, 4x4, abd pad, tape. Serosanginous fluid noted. Slight pink around edge of would. Abdomen tender, bowel sounds active. Ambulates to the restroom. IV antibiotics. Call light in reach.
[2024-05-04 07:05] LABS: Basophils # 0.2 K/mm3 (0-0.2); Basophils % 1.3 % (0.1-2.0); Eosinophils # 0.8 K/mm3 (0.0-0.4); Eosinophils % 6.7 % (0.1-12.0); Hematocrit 39.3 % (37.0-47.0); Hemoglobin 12.6 g/dL (12.2-16.2); Lymphocytes # 2.2 K/mm3 (0.7-4.5); Lymphocytes % 19.6 % (10-50); Mean Corpuscular HGB Conc 32.1 g/dL (31.8-35.4); Mean Corpuscular Hemoglobin 26.7 pg (27.0-31.2); Mean Corpuscular Volume 83.3 fl (81-99); Mean Platelet Volume 10.3 fl (7.4-10.4); Monocytes # 0.8 K/mm3 (0.1-1.0); Monocytes % 7.2 % (1.7-9.3); Neutrophils # 7.2 K/mm3 (1.8-7.8); Neutrophils % 63.8 % (37.0-80.0); Platelet Count 330 K/mm3 (142-424); Red Blood Count 4.72 M/mm3 (4.20-5.40); Red Cell Distribution Width 14.3 % (11.5-17.5); White Blood Count 11.3 K/mm3 (4.8-10.8)
[2024-05-04 07:28] LABS: Alanine Aminotransferase 18 U/L (12-78); Albumin Level 3.3 g/dl (3.5-5.0); Alkaline Phosphatase 87 U/L (38-126); Anion Gap 9.6 mEq/L (5-15); Aspartate Amino Transferase 20 U/L (14-36); Bilirubin,Total 0.4 mg/dl (0.2-1.3); Blood Urea Nitrogen 4 mg/dl (7-17); Calcium 8.5 mg/dl (8.4-10.2); Carbon Dioxide 20 mmol/L (22.0-30.0); Chloride 111 mmol/L (98-107); Creatinine Clearance Estimated 112 mL/min (50-200); Estimated Glomerular Filt Rate 113 ml/min (>60); GFR (African American) 137 ML/MIN (>60); Globulin 3.2 g/dL (1.3-3.2); Glucose 91 mg/dl (74-100); Magnesium 2.1 mg/dl (1.6-2.3); Potassium 3.6 mmoL/L (3.5-5.1); Sodium 137 mmol/L (136-145); Total Protein,Serum 6.5 g/dl (6.3-8.2)
[2024-05-04] MEDS: TOPIRAMATE 100MG TABLET 200 MG PO (07:44)
[2024-05-04] MEDS: levETIRAcetam 500 MG TABLET 1000 MG PO (07:44)
[2024-05-04] MEDS: NICOTINE 14MG/24HRS PATCH 14 MG TD (07:44)
[2024-05-04] MEDS: CEFTRIAXONE 1 GM 1 GM in 0.9 % SODIUM CHLORIDE 50 ML IV (07:44)
[2024-05-04 08:00] VITALS: BP 139/81; PULSE 98; RESP 16; TEMP 36.6; O2SAT 97
--- NOTE | 2024-05-04 08:14 | EXP.DC.SUM ---
General Admission date:: 05/01/24 Discharge date: 05/04/24 HPI HPI HPI: Patient is a 38-year-old female with history of seizure disorder, GERD, smoker, BMI 48 who presented to the emergency department in the afternoon of 05/01/2024 with a 1 week history of soft tissue infection of the abdominal wall in the right lower quadrant. She stated it started as a small knot which progressively became more erythematous and tender and began draining pus. She was noted to have a white blood cell count of 21,500. She had some tachycardia. She had a CT scan which revealed skin thickening and subcutaneous fat stranding in the right anterior abdominal wall compatible with dermatitis/cellulitis. There was no evidence of underlying abscess or necrotizing soft tissue infection. She was admitted for inpatient management. She was started on antibiotics consisting of ceftriaxone and vancomycin. She has shown improvement in her tachycardia and leukocytosis. Surgical consultation was obtained. Hospital Course Hospital Course Hospital Course: Truong Ring is a 38-year-old female with a medical history significant for seizure disorder, GERD who presents with cellulitis of her abdomen for the past week. She states it started as a small knot which progressively became more erythematous, tender and draining purulence over the past. She denies any trauma, needlesticks, or similar infections in the past. Workup in the ED significant for WBC 21.5, AGAP 15, CT abdomen/pelvis not showing deep soft tissue infection. She was tachycardic in the ED. Case discussed with ED provider and decision was made to admit patient for sepsis secondary to cellulitis. Tolerated I&D well. Treated with IV antibiotics during admission. Stable to discharge home with transition to oral antibiotics. Problems addressed as follows: #Sepsis #Cellulitis #Large abscessed sebaceous cyst, secondary focal necrotizing cellulitis ? Presented with right lower abdomen about 10 x 8 cm erythema with central induration and purulent discharge. CT abdomen/pelvis does not show deep tissue infection, but there is central induration with purulent drainage. S/p I&D with Dr. Carrion on 05/02/2024 showing abscessed sebaceous cyst with secondary focal necrotizing cellulitis. White count continuing to improve by day of discharge 11. Kidney function normal. No fever. Pain improving. Wound culture positive for MSSA. Treated with IV vancomycin and ceftriaxone during admission. Transition to Augmentin twice daily at discharge to complete 7 days total of therapy. Continue daily dressing changes with wound packing. Patient to return to outpatient infusion at [facility] for dressing changes by nursing. Discharged with short course of pain medication. Instructed to take 30 minutes to an hour before dressing change. Follow-up with surgery in the next 1 to 2 weeks for wound evaluation. #Seizure disorder: Continue Keppra, topiramate. #GERD: Continue home PPI. Obesity complicates all aspects of her care Exam Data for Last 24 hours Vital signs and Labs for Last 24 Hours: Temp Pulse Resp BP Pulse Ox O2 Del Method O2 Flow Rate 98.2 F 82 16 122/72 100 Room Air 94 05/03/24 04:00 05/03/24 04:00 05/03/24 04:00 05/03/24 04:00 05/03/24 04:00 05/03/24 06:47 05/02/24 18:45 Laboratory Results - last 24 hr 05/02/24 07:30: WBC 13.8 H D, RBC 4.56, Hgb 12.2 D, Hct 37.6, MCV 82.5, MCH 26.8 L, MCHC 32.4, RDW 14.3, Plt Count 240, MPV 10.8 H, Neut % (Auto) 78.7, Lymph % (Auto) 9.7 L, [place] % (Auto) 6.1, Eos % (Auto) 3.8, Baso % (Auto) 0.9, Neut # (Auto) 10.8 H, Lymph # (Auto) 1.3, [place] # (Auto) 0.8, Eos # (Auto) 0.5 H, Baso # (Auto) 0.1, Sodium 138, Potassium 3.5, Chloride 113 H, Carbon Dioxide 14 L, Anion Gap 14.5, BUN 6 L D, Creatinine 0.60, Estimated Creat Clear 112, Estimated GFR 113, Est GFR ( Amer) 137, Glucose 93, Calcium 8.2 L, Magnesium 1.8, Total Bilirubin 0.2, AST 29, ALT 19, Alkaline Phosphatase 104, Total Protein 6.3, Albumin 3.1 L D, Globulin 3.2, Albumin/Globulin Ratio 1.0 L 05/02/24 22:37: Vancomycin Trough 13.5 H 05/03/24 06:53: WBC 13.6 H, RBC 4.51, Hgb 12.1 L, Hct 37.2, MCV 82.5, MCH 26.8 L, MCHC 32.5, RDW 14.3, Plt Count 328 D, MPV 10.2, Neut % (Auto) 75.8, Lymph % (Auto) 10.8, [place] % (Auto) 7.7, Eos % (Auto) 4.1, Baso % (Auto) 0.7, Neut # (Auto) 10.3 H, Lymph # (Auto) 1.5, [place] # (Auto) 1.1 H, Eos # (Auto) 0.6 H, Baso # (Auto) 0.1, Sodium 137, Potassium 3.5, Chloride 113 H, Carbon Dioxide 17 L, Anion Gap 10.5, BUN 4 L D, Creatinine 0.60, Estimated Creat Clear 112, Estimated GFR 113, Est GFR ( Amer) 137, Glucose 101 H, Calcium 8.6, Magnesium 1.9, Total Bilirubin 0.4, AST 18 D, ALT 17, Alkaline Phosphatase 82, Total Protein 6.2 L, Albumin 3.2 L, Globulin 3.0, Albumin/Globulin Ratio 1.1 I & O for Last 24 hours: Intake & Output 04/30/24 05/01/24 05/02/24 05/03/24 23:59 23:59 23:59 23:59 Intake Total 480 / 480 740 / 740 Output Total 0 / 0 0 / 0 0 / 0 Balance 480 / 480 740 / 740 0 / 0 Weight 127.006 kg 126.86 kg 127.5 kg Microbiology Reports for the Last 24 Hours: Microbiology 05/02/24 12:51 Abdomen Gram Stain - Final 05/02/24 12:51 Abdomen Abscess Culture - Preliminary 05/01/24 11:23 Abdomen Gram Stain - Final 05/01/24 11:23 Abdomen Wound Culture - Final Staphylococcus aureus 05/01/24 11:17 Blood Blood Culture - Preliminary NO GROWTH AFTER 24 HOURS 05/01/24 11:23 Blood Blood Culture - Preliminary NO GROWTH AFTER 24 HOURS Constitutional Constitutional: no acute distress, morbidly obese and chronically ill appearing *Routine HEENT Exam Head: Present normocephalic Eye: Present EOMI and PERRL ENT: Present mucous membranes moist *Routine Neck Exam Neck: Present supple; Absent lymphadenopathy *Routine Respiratory Exam Respiratory: Present CTA bilaterally *Routine Cardiovascular Exam Cardiovascular: Present RRR *Routine Abdominal Exam Abdominal: Present soft and normoactive bowel sounds; Absent tenderness *Routine Rectal Exam Patient deferred: visual exam *Routine Exam Patient deferred: external exam *Routine Extremities Exam Extremities: Absent cyanosis, clubbing or edema *Routine Skin Exam Skin: Present warm; Absent rash Comments: Wound right lower for abdomen, packing in place. Minimal serous drainage. Healthy wound with resolving induration *Routine Neurological Exam Neurological: Present alert, oriented X3 and moving all extremities; Absent altered mental status Results Data Completed and Pending Labs on day of discharge: Labs from last 24 hours 05/03/24 05/02/24 05/02/24 06:53 22:37 07:30 WBC 13.6 H 13.8 H D RBC 4.51 4.56 Hgb 12.1 L 12.2 D Hct 37.2 37.6 MCV 82.5 82.5 MCH 26.8 L 26.8 L MCHC 32.5 32.4 RDW 14.3 14.3 Plt Count 328 D 240 MPV 10.2 10.8 H Neut % (Auto) 75.8 78.7 Lymph % (Auto) 10.8 9.7 L [place] % (Auto) 7.7 6.1 Eos % (Auto) 4.1 3.8 Baso % (Auto) 0.7 0.9 Neut # (Auto) 10.3 H 10.8 H Lymph # (Auto) 1.5 1.3 [place] # (Auto) 1.1 H 0.8 Eos # (Auto) 0.6 H 0.5 H Baso # (Auto) 0.1 0.1 Sodium 137 138 Potassium 3.5 3.5 Chloride 113 H 113 H Carbon Dioxide 17 L 14 L Anion Gap 10.5 14.5 BUN 4 L D 6 L D Creatinine 0.60 0.60 Estimated Creat Clear 112 112 Estimated GFR 113 113 Est GFR ( Amer) 137 137 Glucose 101 H 93 Calcium 8.6 8.2 L Magnesium 1.9 1.8 Total Bilirubin 0.4 0.2 AST 18 D 29 ALT 17 19 Alkaline Phosphatase 82 104 Total Protein 6.2 L 6.3 Albumin 3.2 L 3.1 L D Globulin 3.0 3.2 Albumin/Globulin Ratio 1.1 1.0 L Vancomycin Trough 13.5 H Preliminary micro results at discharge 05/02/24 12:51 Abscess Culture - Preliminary Abdomen 05/01/24 11:17 Blood Culture - Preliminary Blood NO GROWTH AFTER 24 HOURS 05/01/24 11:23 Blood Culture - Preliminary Blood NO GROWTH AFTER 24 HOURS DS: Diagnosis Discharge Diagnosis (1) Sepsis due to skin infection: Status: Acute Code(s): A41.9 - Sepsis, unspecified organism; L08.9 - Local infection of the skin and subcutaneous tissue, unspecified Meds Home Medications and Allergies Home Medications ?Medication ?Instructions ?Recorded ?Confirmed ?Type cyanocobalamin (vitamin B-12) 1,000 mcg PO DAILY 03/02/24 05/01/24 History 1,000 mcg tablet ferrous sulfate 325 mg (65 mg 325 mg PO DAILY 03/02/24 05/01/24 History iron) tablet (FeroSul) hydroxyzine HCl 50 mg tablet 50 mg PO DAILY 03/02/24 05/01/24 History levetiracetam 1,000 mg tablet 1,000 mg PO BID 03/02/24 05/01/24 History sucralfate 1 gram tablet 1 g PO ACHS 03/02/24 05/02/24 History topiramate 200 mg tablet 200 mg PO BID 03/02/24 05/01/24 History famotidine 20 mg tablet (Pepcid) 20 mg PO BID 05/01/24 05/01/24 History omeprazole 40 mg capsule,delayed 40 mg PO DAILY 05/01/24 05/01/24 History release amoxicillin 875 mg-potassium 1 tab PO BID 5 days #10 tabs 05/04/24 Rx clavulanate 125 mg tablet hydrocodone 5 mg-acetaminophen 325 1 tab PO Q8HP PRN Mild To Moderate 05/04/24 Rx mg tablet Pain (1-6) 3 days #9 tabs New Prescriptions to Start Prescriptions: amoxicillin-pot clavulanate Naldo Holbrook hydrocodone-acetaminophen Naldo Holbrook Allergies Allergy/AdvReac Type Severity Reaction Status Date / Time cyclobenzaprine (From Allergy Unknown Verified 05/01/24 11:18 Flexeril) allergy reaction prednisone Allergy Unknown Verified 05/01/24 11:18 allergy reaction Discharge Plan Disposition Patient Disposition: Home, Self-Care Condition: Fair Discharge Order Discharge Orders: Discharge Order (Routine); Ordered 05/04/24 Ordered By: Naldo Holbrook Follow up Plan Follow up with: Allran,Jason, MD [Staff Physician] - 05/12/24 9:15 am Prescriptions/Medication Reconciliation: New amoxicillin-pot clavulanate 875-125 mg tablet 1 tab PO BID 5 Days Qty: 10 0RF hydrocodone-acetaminophen 5-325 mg Tablet 1 tab PO Q8HP PRN (Reason: Mild To Moderate Pain (1-6)) 3 Days Qty: 9 0RF Continued levetiracetam 1,000 mg tablet 1,000 mg PO BID sucralfate 1 gram tablet 1 g PO ACHS cyanocobalamin (vitamin B-12) 1,000 mcg tablet 1,000 mcg PO DAILY hydroxyzine HCl 50 mg tablet 50 mg PO DAILY Patient Comments: TAKE 1 TABLET BY MOUTH DAILY ferrous sulfate [FeroSul] 325 mg (65 mg iron) tablet 325 mg PO DAILY topiramate 200 mg tablet 200 mg PO BID Patient Comments: TAKE 1 TABLET BY MOUTH TWICE DAILY omeprazole 40 mg Capsule,Delayed Release(Dr/Ec) 40 mg PO DAILY famotidine [Pepcid] 20 mg Tablet 20 mg PO BID Problem Reconciliation Problems Reviewed?: Yes Patient Discharge Instructions ACTIVITY: Continue current activity DIET: continue same diet Additional Instructions: Return daily to outpt at [facility] for dressing changes Patient Instructions: DI for Cellulitis -- Adult, Cellulitis, DI for Sepsis -- Adult Print Language: Maltese Providers Primary Care Provider: Provider,Referral Admit Provider: Kalen Cho Attending Provider: Kalen Cho
--- NOTE | 2024-05-04 08:44 | P.PN_ITS ---
Subjective Patient reports: no new complaints and feels better Exam Data for Last 24 hours Vital signs and Labs for Last 24 Hours: Temp Pulse Resp BP Pulse Ox O2 Del Method O2 Flow Rate 97.9 F 98 H 16 139/81 97 Room Air 94 05/04/24 08:00 05/04/24 08:00 05/04/24 08:00 05/04/24 08:00 05/04/24 08:00 05/04/24 08:00 05/02/24 18:45 Laboratory Results - last 24 hr 05/03/24 06:53: Procalcitonin 0.081 05/03/24 10:40: Vancomycin Trough 12.9 H 05/04/24 06:50: WBC 11.3 H, RBC 4.72, Hgb 12.6, Hct 39.3, MCV 83.3, MCH 26.7 L, MCHC 32.1, RDW 14.3, Plt Count 330, MPV 10.3, Neut % (Auto) 63.8, Lymph % (Auto) 19.6, [place] % (Auto) 7.2, Eos % (Auto) 6.7, Baso % (Auto) 1.3, Neut # (Auto) 7.2, Lymph # (Auto) 2.2, [place] # (Auto) 0.8, Eos # (Auto) 0.8 H, Baso # (Auto) 0.2, Sodium 137, Potassium 3.6, Chloride 111 H, Carbon Dioxide 20 L, Anion Gap 9.6, BUN 4 L, Creatinine 0.60, Estimated Creat Clear 112, Estimated GFR 113, Est GFR ( Amer) 137, Glucose 91, Calcium 8.5, Magnesium 2.1 D, Total Bilirubin 0.4, AST 20, ALT 18, Alkaline Phosphatase 87, Total Protein 6.5, Albumin 3.3 L, Globulin 3.2, Albumin/Globulin Ratio 1.0 L I & O for Last 24 hours: Intake & Output 05/01/24 05/02/24 05/03/24 05/04/24 11:59 11:59 11:59 11:59 Intake Total 480 / 480 1510 / 1510 2220 / 2220 Output Total 0 / 0 0 / 0 0 / 0 Balance 480 / 480 1510 / 1510 2220 / 2220 Weight 280 lb 279 lb 10.855 oz 281 lb 1.43 oz 268 lb Microbiology Reports for the Last 24 Hours: Microbiology 05/02/24 12:51 Abdomen Gram Stain - Final 05/02/24 12:51 Abdomen Abscess Culture - Preliminary Gram Positive Cocci 05/01/24 11:17 Blood Blood Culture - Preliminary NO GROWTH AFTER 48 HOURS 05/01/24 11:23 Blood Blood Culture - Preliminary NO GROWTH AFTER 48 HOURS 05/01/24 11:23 Abdomen Gram Stain - Final 05/01/24 11:23 Abdomen Wound Culture - Final Staphylococcus aureus Constitutional Constitutional: no acute distress *Routine Respiratory Exam Respiratory: Absent respiratory distress *Routine Abdominal Exam Comments: Dressing in place. No spreading cellulitis. Progress Note: A&P Assessment and plan (1) Sepsis due to skin infection: Status: Acute Assessment and plan: Continue dressing changes Continue antibiotics/medical management
[2024-05-04] MEDS: ACETAMINOPHEN 325MG TAB 650 MG PO (09:59)
[2024-05-04] MEDS: VANCOMYCIN HCL 2,500 MG in 0.9 % SODIUM CHLORIDE 500 ML 250 MG IV (10:13)
--- NOTE | 2024-05-04 10:30 | PC.NURSE ---
Dressing changed to right lower abd with gauzed packed, 4x4, abd pad and tape.
--- NOTE | 2024-05-04 10:40 | HMH.PHAINT1 ---
Pharmacy Intervention Comments: Counselled patient on new medications. Patient verbalized understanding.
--- NOTE | 2024-05-06 10:51 | SW/DCPLANNER ---
Spoke with Dianne at [facility] about patient. Dianne stated that patient has been saying she has some discomfort. Dianne stated that she was not aware of patients upcoming appointment and i told Dianne and she said she was writing it down. Dianne stated that she has no concerns or questions at this time. Erin Jones
--- NOTE | 2024-05-09 13:06 | EXP.ANES.II ---
[facility] Anesthesia Record Part II Anesthesia Record Part II Discharge Time: 13:50 Destination: Surgical Day Care (OP Surgery) PACU nurse assessment reviewed?: Yes Patient Condition:: Good Anesthesia Complications:: None Swallowing reflex intact?: Yes Airway Patency: Patent Cyanosis?: No Blood Pressure: 123/74 SaO2: 94 Respiratory Rate: 17 Pulse Rate: 78 Temperature: 97.9 F Mental Status: Alert & Oriented Pain level:: 0 Nausea and/or vomitting:: None Intake, IV Amount: 0 Hydration: Adequate
[2024-05-09 13:08] VITALS: BP 123/74; PULSE 78; RESP 17; TEMP 36.6; O2SAT 94
== END 2024-05-04 13:10 | disposition home or self-care (01) | DRG 872 ==
LOC: ER 14:21 → 2ND 15:39
PROVIDERS: Surgery; Admitting Provider Student in an Organized Health Care Education/Training Program; Emergency Provider Emergency Medicine; Visit Provider Student in an Organized Health Care Education/Training Program
DX: A41.01 Sepsis due to Methicillin susceptible Staphylococcus aureus (principal); L03.319 Cellulitis of trunk, unspecified; Z68.42 Body mass index [BMI] 45.0-49.9, adult; B95.61 Methicillin susceptible Staphylococcus aureus infection as the cause of diseases classified elsewhere; F17.210 Nicotine dependence, cigarettes, uncomplicated; L72.3 Sebaceous cyst; E66.01 Morbid (severe) obesity due to excess calories; G40.909 Epilepsy, unspecified, not intractable, without status epilepticus; K21.9 Gastro-esophageal reflux disease without esophagitis; Z79.899 Other long term (current) drug therapy
CPT/HCPCS: 36415; 74177; 80053; 80202; 81025; 83036; 83605; 83735; 84145; 85007; 85025; 87040; 87070; 87075; 87077; 87186; 87205; 99291; J0696; J1885; J2250; J2405; J2543; J3010; J3370; J3475; J7120; Q9967

== ENCOUNTER 2024-05-05 14:19 | Outpatient (CLI) | payer SELFPAY | END 2024-05-05 15:10 | disposition home or self-care (01) | LOC: INF 14:30 | PROVIDERS: Visit Provider Internal Medicine Adolescent Medicine | DX: L03.311 Cellulitis of abdominal wall (principal) | CPT/HCPCS: G0463 ==

== ENCOUNTER 2024-05-06 13:58 | Outpatient (CLI) | payer SELFPAY | END 2024-05-06 14:20 | disposition home or self-care (01) | LOC: INF 14:00 | PROVIDERS: Visit Provider Internal Medicine Adolescent Medicine | DX: L03.311 Cellulitis of abdominal wall (principal) | CPT/HCPCS: G0463 ==

== ENCOUNTER 2024-05-07 13:59 | Outpatient (CLI) | payer SELFPAY | END 2024-05-07 23:59 | disposition home or self-care (01) | PROVIDERS: PCP Internal Medicine; Visit Provider Internal Medicine Adolescent Medicine | DX: L03.311 Cellulitis of abdominal wall (principal) | CPT/HCPCS: G0463 ==

== ENCOUNTER 2024-05-08 14:01 | Outpatient (CLI) | payer SELFPAY | END 2024-05-08 23:59 | disposition home or self-care (01) | LOC: INF 14:02 | PROVIDERS: PCP Nurse Practitioner Family; Visit Provider Internal Medicine Adolescent Medicine | DX: Z48.00 Encounter for change or removal of nonsurgical wound dressing (principal) | CPT/HCPCS: G0463 ==

== ENCOUNTER 2024-05-09 14:10 | Outpatient (CLI) | payer SELFPAY | END 2024-05-09 14:28 | disposition home or self-care (01) | LOC: INF 14:13 | PROVIDERS: PCP Nurse Practitioner Family; Visit Provider Internal Medicine Adolescent Medicine | DX: L03.311 Cellulitis of abdominal wall (principal) | CPT/HCPCS: G0463 ==

== ENCOUNTER 2024-05-10 14:12 | Outpatient (CLI) | payer SELFPAY | END 2024-05-10 14:30 | disposition home or self-care (01) | LOC: INF 14:13 | PROVIDERS: PCP Nurse Practitioner Family; Visit Provider Internal Medicine Adolescent Medicine | DX: L03.311 Cellulitis of abdominal wall (principal) | CPT/HCPCS: G0463 ==

== ENCOUNTER 2024-05-11 01:59 | Emergency (ER) | payer OTHER, SELFPAY ==
[2024-05-11] VITALS (14 sets, daily range): BP systolic 97–198; BP diastolic 57–122; PULSE 50–99; RESP 12–20; TEMP 36.6–37.1; O2SAT 95–99; BMI 47.5
[2024-05-11] MEDS: LACTATED RINGERS 1000ML 1,000 ML 999 ML IV (02:16)
[2024-05-11] MEDS: levETIRAcetam 2,000 MG in 0.9 % SODIUM CHLORIDE 100 ML 240 MG IV (02:16)
[2024-05-11 02:28] LABS: Basophils # 0.1 K/mm3 (0-0.2); Basophils % 0.9 % (0.1-2.0); Eosinophils # 0.5 K/mm3 (0.0-0.4); Eosinophils % 3.8 % (0.1-12.0); Hematocrit 38.8 % (37.0-47.0); Hemoglobin 12.6 g/dL (12.2-16.2); Lymphocytes # 2.5 K/mm3 (0.7-4.5); Lymphocytes % 18.9 % (10-50); Mean Corpuscular HGB Conc 32.5 g/dL (31.8-35.4); Mean Corpuscular Hemoglobin 27.1 pg (27.0-31.2); Mean Corpuscular Volume 83.4 fl (81-99); Mean Platelet Volume 10.1 fl (7.4-10.4); Monocytes # 0.8 K/mm3 (0.1-1.0); Neutrophils # 8.9 K/mm3 (1.8-7.8); Neutrophils % 68.6 % (37.0-80.0); Platelet Count 353 K/mm3 (142-424); Red Blood Count 4.65 M/mm3 (4.20-5.40); Red Cell Distribution Width 14.6 % (11.5-17.5)
[2024-05-11 02:34] LABS: Albumin Level 3.8 g/dl (3.5-5.0); Chloride 113 mmol/L (98-107); Potassium 3.8 mmoL/L (3.5-5.1); Sodium 137 mmol/L (136-145)
[2024-05-11 02:37] LABS: Alanine Aminotransferase 32 U/L (12-78); Albumin/Globulin Ratio 1.1 (1.1-1.8); Alkaline Phosphatase 84 U/L (38-126); Anion Gap 12.8 mEq/L (5-15); Aspartate Amino Transferase 33 U/L (14-36); Bilirubin,Total 0.3 mg/dl (0.2-1.3); Blood Urea Nitrogen 8 mg/dl (7-17); Carbon Dioxide 15 mmol/L (22.0-30.0); Creatinine Clearance Estimated 88 mL/min (50-200); Estimated Glomerular Filt Rate 95 ml/min (>60); GFR (African American) 115 ML/MIN (>60); Globulin 3.5 g/dL (1.3-3.2); Total Protein,Serum 7.3 g/dl (6.3-8.2)
[2024-05-11 02:38] LABS: Calcium 8.9 mg/dl (8.4-10.2); Glucose 91 mg/dl (74-100); Lactic Acid 2.3 mmol/L (0.7-2.1)
--- NOTE | 2024-05-11 02:41 | ED_ITS ---
Discharge Plan Disposition Patient Disposition: Home, Self-Care Condition: Good Prescriptions Prescriptions: No Action levetiracetam 1,000 mg tablet 1,000 mg PO BID sucralfate 1 gram tablet 1 g PO ACHS cyanocobalamin (vitamin B-12) 1,000 mcg tablet 1,000 mcg PO DAILY hydroxyzine HCl 50 mg tablet 50 mg PO DAILY Patient Comments: TAKE 1 TABLET BY MOUTH DAILY ferrous sulfate [FeroSul] 325 mg (65 mg iron) tablet 325 mg PO DAILY topiramate 200 mg tablet 200 mg PO BID Patient Comments: TAKE 1 TABLET BY MOUTH TWICE DAILY omeprazole 40 mg Capsule,Delayed Release(Dr/Ec) 40 mg PO DAILY famotidine [Pepcid] 20 mg Tablet 20 mg PO BID amoxicillin-pot clavulanate 875-125 mg tablet 1 tab PO BID 5 Days Qty: 10 0RF hydrocodone-acetaminophen 5-325 mg Tablet 1 tab PO Q8HP PRN (Reason: Mild To Moderate Pain (1-6)) 3 Days Qty: 9 0RF Referrals Follow up/Referrals: Provider,Referral, [Primary Care Provider] - See instructions Juliano Ely DO [Staff Physician] - See instructions (Establish care, refer to neuro for follow up) Activity Restrictions/Add. Instructions Additional Instructions/Restrictions: You were evaluated in the ER and are appropriate for discharge at this time. STOP using marijuana and do not use other drugs. Continue taking your prescriptions as directed. Call your neurologist for an appointment as soon as possible. Make an appointment with your primary care doctor for reevaluation. Return to the ER with new, worsening, or otherwise concerning symptoms. Clinical Impressions Clinical Impression: Seizure, Mild tetrahydrocannabinol (THC) abuse Print Language Print Language: Czech Discharge ED Provider: Malcolm Tesfaye Adult HPI General Chief complaint: Seizure Stated complaint: Seizures Time Seen by Provider: 05/11/24 02:02 Mode of Arrival: EMS Source of Information: EMS Limitations: Altered Mental Status Description of Symptoms (Recalled from ER Triage Doc. by RN): PT ARRIVED VIA EMS FROM [facility] S/P POSSIBLE SEIZURE SHUTTLE SPOTTER. PT W/ HX, CURRENTLY POSTICTAL. PT FSBG 109 MG/DL EN ROUTE PER EMS. PT ONLY C/O HEADACHE. SEIZURE PRECAUTIONS IN PLACE. History of Present Illness HPI narrative: 38-year-old female with history of seizures on topiramate and levetiracetam among other daily medications presents to the ER from [facility] for concerns of possible seizure-like activity prior to arrival. EMS reports [facility] indicated to them they walked past the room and saw the patient having mild twitching and allegedly turning blue. By the time EMS arrived, she was no longer having this activity but did seem confused like she was postictal. EMS reports that the patient's mental status had cleared within 5 minutes. Unclear how long the possible seizure-like activity lasted. [facility] did report that the patient was sleeping when they noticed this. EMS reports patient had a fingerstick blood glucose of 109 in route. They did not administer any medications. Patient was able to ambulate from her room to the ambulance independently including downstairs. Patient has not had any additional seizure-like activity with EMS. Patient reports since the last time she was seen in the ER for the same complaint she has not followed up with her neurologist. She states she is taking all her medications as prescribed. She states she has a mild headache, she did not fall or hit her head. Patient reports mild congestion and cough for the last couple days. She also reports mild nausea at this time but no vomiting, diarrhea, or abdominal pain. She denies dysuria or hematuria. She denies fever, she reports no other associated symptoms. Related Data Home Medications ?Medication ?Instructions ?Recorded ?Confirmed cyanocobalamin (vitamin B-12) 1,000 mcg PO DAILY 03/02/24 05/01/24 1,000 mcg tablet ferrous sulfate 325 mg (65 mg 325 mg PO DAILY 03/02/24 05/01/24 iron) tablet (FeroSul) hydroxyzine HCl 50 mg tablet 50 mg PO DAILY 03/02/24 05/01/24 levetiracetam 1,000 mg tablet 1,000 mg PO BID 03/02/24 05/01/24 sucralfate 1 gram tablet 1 g PO ACHS 03/02/24 05/02/24 topiramate 200 mg tablet 200 mg PO BID 03/02/24 05/01/24 famotidine 20 mg tablet (Pepcid) 20 mg PO BID 05/01/24 05/01/24 omeprazole 40 mg capsule,delayed 40 mg PO DAILY 05/01/24 05/01/24 release Previous Rx's ?Medication ?Instructions ?Recorded amoxicillin 875 mg-potassium 1 tab PO BID 5 days #10 tabs 05/04/24 clavulanate 125 mg tablet hydrocodone 5 mg-acetaminophen 325 1 tab PO Q8HP PRN Mild To Moderate 05/04/24 mg tablet Pain (1-6) 3 days #9 tabs Allergies Allergy/AdvReac Type Severity Reaction Status Date / Time cyclobenzaprine (From Allergy Unknown Verified 05/01/24 11:18 Flexeril) allergy reaction prednisone Allergy Unknown Verified 05/01/24 11:18 allergy reaction PFSH [facility] Disclaimer: The information contained in this section may have been updated after the patient was seen, as this information can be updated by other users. Medical History (Updated 05/11/24 @ 04:32 by Malcolm Tesfaye MD) Cholecystitis ADHD Depression Anxiety GERD (gastroesophageal reflux disease) Seizure disorder Surgical History History of tonsillectomy History of Family History (Updated 05/01/24 @ 16:48 by Katherine Montalvo RN) Other Alcohol abuse Family history of cancer Social History (Updated 05/02/24 @ 13:27 by Bud Malik CRNA) Smoking Status: Never smoker alcohol intake: former substance use type: denies use current occupational status: unemployed Travel in the last 8 weeks: None Other Medical History Have you received the Flu Vaccine for this season: No Have you received the Pneumonia Vaccine: No ROS Obtained: Yes Systems reviewed as appropriate & no additional complaints except as documented Per HPI Physical Exam General General appearance: alert and in no apparent distress Head Head exam: atraumatic and normocephalic Eye Eye exam: Present PERRL and EOMI ENT ENT exam: Present mucous membranes moist Neck Neck exam: Present normal inspection and full ROM Chest Chest inspection: Present symmetric chest wall rise Respiratory Respiratory exam: Present normal lung sounds bilaterally; Absent respiratory distress, wheezes or stridor Cardiovascular Cardiovascular exam: Present regular rate and normal rhythm Abdominal Exam Abdominal exam: Present soft; Absent distention or tenderness Comment: Right lower quadrant abdominal wound with clean, dry dressing in place. Under the dressing there is a 8 cm x 2 cm open wound but no purulent drainage, no foul smell, no surrounding induration. Wound appears to have healthy, healing tissue. Extremities Exam Extremities exam: Present full ROM; Absent edema or joint swelling Neurological Exam Neurological exam: Present alert, oriented X3, CN II-XII intact and normal gait; Absent motor sensory deficit Psychiatric Psychiatric exam: Present normal affect and normal mood Skin Skin exam: Present warm and dry Medical Decision Making Medical Records Medical records reviewed: Yes I reviewed the patient's medical records. Screening: Per USPSTF and CDC recommendations, given the prevalence of disease in our region, it is our hospital?s policy to screen for HIV and viral Hepatitis for all patients aged 18 and over and those with ongoing risk factors. MR Comment: Most recent evaluation in our system was 10 days ago for a wound on her right abdomen. Patient had CT at that time demonstrating panniculitis. No deep space infection. She was treated inpatient and based on my review of hospitalist progress notes, she had a 10 cm x 8 cm area of erythema with purulence and induration. She was treated with vancomycin and Rocephin. She was to have outpatient dressing changes by nursing staff at the infusion clinic. She was taking Augmentin at the time of discharge which has reportedly been completed. Lloyd Inquiry Pt receiving controlled substance: No Vital Signs: 05/11/24 02:00 05/11/24 02:05 05/11/24 02:31 Temperature 98.7 F Temperature Source Oral Pulse Rate 90 Pulse Rate [Apical] 99 H Respiratory Rate 20 Blood Pressure 168/102 H 198/122 H Blood Pressure [Right Arm] 168/102 H Blood Pressure Mean 122 135 Blood Pressure Mean [Right Arm] 124 02 Sat by Pulse Oximetry 99 96 Oxygen Delivery Method Room Air Room Air 05/11/24 02:47 05/11/24 03:04 05/11/24 03:31 Temperature Temperature Source Pulse Rate 86 80 62 Pulse Rate [Apical] Respiratory Rate 13 20 19 Blood Pressure 133/82 133/82 122/74 Blood Pressure [Right Arm] Blood Pressure Mean 136 106 90 Blood Pressure Mean [Right Arm] 02 Sat by Pulse Oximetry 97 98 95 Oxygen Delivery Method Room Air Lab Data Lab Results 05/11/24 02:20: Urine Color Yellow, Urine Appearance Clear, Urine pH 6.5, Ur Specific Gilbert 1.025, Urine Protein Negative, Urine Glucose (UA) Negative, Urine Ketones Negative, Urine Blood Negative, Urine Nitrate Negative, Urine Bilirubin Negative, Urine Urobilinogen 0.2, Ur Leukocyte Esterase Negative, Urine RBC None, Urine WBC None, Ur Squamous Epith Cells 5-10, Urine Bacteria Trace, Urine Mucus Trace, Urine Opiates Screen Negative, Urine Methadone Screen Negative, Ur Barbituates Screen Negative, Ur Phencyclidine Scrn Negative, Ur Amphetamines Screen Negative, U Benzodiazepines Scrn Negative, Urine Cocaine Screen Negative, U Marijuana (THC) Screen Positive H, Plasma/Serum Alcohol < 10 05/11/24 02:26: WBC 13.0 H, RBC 4.65, Hgb 12.6, Hct 38.8, MCV 83.4, MCH 27.1, MCHC 32.5, RDW 14.6, Plt Count 353, MPV 10.1, Neut % (Auto) 68.6, Lymph % (Auto) 18.9, [place] % (Auto) 6.0, Eos % (Auto) 3.8, Baso % (Auto) 0.9, Neut # (Auto) 8.9 H, Lymph # (Auto) 2.5, [place] # (Auto) 0.8, Eos # (Auto) 0.5 H, Baso # (Auto) 0.1, Sodium 137, Potassium 3.8, Chloride 113 H, Carbon Dioxide 15 L, Anion Gap 12.8, BUN 8, Creatinine 0.70, Estimated Creat Clear 88, Estimated GFR 95, Est GFR ( Amer) 115, Glucose 91, Lactate 2.3 H, Calcium 8.9, Total Bilirubin 0.3, AST 33, ALT 32, Alkaline Phosphatase 84, Total Protein 7.3, Albumin 3.8, G lobulin 3.5 H, Albumin/Globulin Ratio 1.1 05/11/24 02:52: SARS-CoV-2 (PCR) Not detected, Influenza A Untype (PCR) Not detected, Influenza Type B (PCR) Not detected 05/11/24 02:26 05/11/24 02:26 Orders (Tests/Meds): ED MEDICATIONS Discontinued Medications Generic Name Dose Route Start Last Admin Trade Name Freq PRN Reason Stop Dose Admin Levetiracetam 2,000 mg/ Sodium 120 mls @ 240 mls/hr 05/11/24 02:02 05/11/24 02:16 Chloride IV 05/11/24 02:03 240 mls/hr ONCE ONE Administration Lactated Ringer's 1,000 mls @ 999 mls/hr 05/11/24 02:03 05/11/24 02:16 Lactated Ringer's 1000 Ml Bag IV 05/11/24 03:03 999 mls/hr .Q1H1M ONE Administration Ondansetron HCl 4 mg 05/11/24 02:57 05/11/24 03:31 Ondansetron 4mg/2ml Vial IV 05/11/24 02:58 4 mg ONCE ONE Administration ORDERS Category Date Time Status CXR 2 view (NOT portable) [XR chest 2V] Stat Exams 05/11/24 02:45 Taken CBC w/Auto Diff [Complete Blood Count Auto Diff] Stat Lab 05/11/24 02:26 Completed CMP [Comprehensive Metabolic Panel] Stat Lab 05/11/24 02:26 Completed Ethanol [Ethyl Alcohol] Stat Lab 05/11/24 02:20 Completed Lactic Acid Stat Lab 05/11/24 02:26 Completed Rapid PCR Covid and Flu A/B Stat Lab 05/11/24 02:52 Completed UDS [Drug Screen,Urine] Stat Lab 05/11/24 02:20 Completed Urinalysis and Microscopic Stat Lab 05/11/24 02:20 Completed Medical Decision Narrative: In summary, this 38-year-old female with comorbidities described in the HPI presents to the emergency department today with seizure-like activity. On initial evaluation patient is hemodynamically stable, afebrile, GCS 15, lungs clear bilaterally, no peripheral edema, no neurologic deficits, patient does have right lower quadrant abdominal wound that appears to be well-healing and improved compared to the description in her hospitalist notes. Differential diagnosis includes but is not limited to breakthrough seizure, seizure-like activity, epileptic seizure, medication noncompliance, electrolyte abnormality, intoxication, viral illness, pneumonia, urinary tract infection, I considered other infection such as cellulitis/abscess like patient recently had on her right lower quadrant as this could lower the seizure threshold, however her right lower quadrant wound appears improved compared to prior description. Based on these concerns, I ordered serum labs, chest x-ray, viral swab, urine studies. Patient received IV Keppra load as well as IV fluids, Zofran for treatment. Labs personally reviewed demonstrate mild leukocytosis as well as mild lactic acidosis, both of these increase my suspicion for true seizure activity tonight, Patient has reassuring kidney function, no transaminitis. XR personally interpreted demonstrates no acute intrathoracic abnormality, specifically no lobar infiltrate, see radiology read for final interpretation. CT head was considered however I evaluated this patient for similar symptoms approximately [address] and perform [address] head at that time which did not demonstrate acute intracranial abnormality, patient does not have concerning red flag complaints at this time such as thunderclap headache, neurologic deficits, or other abnormality that makes me think CT would be indicated so it will not be performed at this time. Additional labs resulted demonstrating patient has no findings of UTI, COVID, flu negative, no actionable electrolyte abnormalities, patient's UDS is positive for THC which she was not positive for the last time she was evaluated for seizure-like activity. Illicit substance use could very well be contributing to her seizure-like activity tonight. On reevaluation patient continues to be stable and is resting comfortably. She has not had any additional seizure-like activity. I attempted to contact her neurologist office to obtain close follow-up for this patient however they were not available. The purpose of this call was to try to get the patient closer outpatient follow-up, however this was not successful. I strongly impressed to the patient the importance of following up closely with her neurologist. The last time I saw the patient, I referred her to a primary care doctor who she has not yet seen. I also instructed her to follow-up with them as soon as possible. I discussed the THC use, she reports she did not use anything but when confronted with the results of her UDS, stopped answering me. I gave her explicit instructions on cessation of use to avoid intoxication potentially lowering her seizure threshold. Patient indicated understanding to all instructions and stated she would call her neurologist for follow-up. Patient was given instructions on symptomatic management, follow up instructions, and return precautions for the emergency department. Patient indicated understanding and was discharged in stable condition. Critical Care Critical Care Time Critical Care Time: No
--- NOTE | 2024-05-11 02:45 | XR_ITS ---
PROCEDURE INFORMATION: Exam: XR Chest Exam date and time: 05/11/2024 2:45 AM Age: 38 years old Clinical indication: Cough TECHNIQUE: Imaging protocol: Radiologic exam of the chest. Views: 2 views. COMPARISON: CT ABDOMEN PELVIS W CON 05/01/2024 1:11 PM FINDINGS: Lungs: Unremarkable. No consolidation. Pleural spaces: Unremarkable. No pleural effusion. No pneumothorax. Heart/Mediastinum: Unremarkable. No cardiomegaly. Bones/joints: Unremarkable. IMPRESSION: No acute findings.
--- NOTE | 2024-05-11 02:46 | PC.NURSE ---
Attempted to reach out to [facility] regarding a consult for this patient. The [facility] stated that Dr. Tunde Fang does not have human relations professor and they also have no beds in there neuro unit. Attempted to call his office to reach an human relations professor number but was unsuccessful in my attempt.
[2024-05-11 02:57] LABS: Coronavirus 19, PCR Not Detected (NotDetected); Influenza A, PCR Not Detected (NotDetected); Influenza B, PCR Not Detected (NotDetected)
[2024-05-11 03:17] LABS: Appearance,Urine CLEAR (Clear); Bilirubin,Urine Negative (Negative); Blood, Urine Negative (Negative); Color,Urine YELLOW (Yellow); Glucose,Urine (UA) Negative (Negative); Ketones,Urine Negative (Negative); Leukocyte Esterase,Urine Negative (Negative); Microscopic, Urine URINE MICROSCOPIC (MICROSCOPIC); Nitrate,Urine Negative (Negative); PH,Urine 6.5 (5.0-8.5); Protein,Urine Negative (Negative); Specific Gravity, Urine 1.025 (1.005-1.030); Urobilinogen,Urine 0.2 EU/dl (0.2)
[2024-05-11 03:24] LABS: Bacteria,Urine Trace /lpf; Mucus,Urine Trace /lpf
[2024-05-11 03:30] LABS: Barbiturates Screen,Urine Negative ng/ml (<200)
[2024-05-11 03:31] LABS: Amphetamine/Metha Screen,Urine Negative ng/ml (<1000); Benzodiazepines Screen,Urine Negative ng/ml (<200)
[2024-05-11] MEDS: ONDANSETRON 4MG/2ML VIAL 4 MG IV (03:31)
[2024-05-11 03:32] LABS: Cannabinoid Screen,Urine Positive ng/ml (<50)
[2024-05-11 03:33] LABS: Cocaine Screen,Urine Negative ng/ml (<300); Methadone Screen,Urine Negative ng/ml (<300)
[2024-05-11 03:34] LABS: Opiate Screen,Urine Negative ng/ml (<300); Phencyclidine Screen,Urine Negative ng/ml (<25)
[2024-05-11 03:38] LABS: Ethyl Alcohol < 10 mg/dl (0-10)
--- NOTE | 2024-05-11 04:31 | PC.NURSE ---
Attempted to call the [facility] at the number provided to this hospital, they did not answer. Called [facility] [employer] to have a PD unit go check on them.
--- NOTE | 2024-05-11 04:40 | PC.NURSE ---
[facility] contacted the ED back stating there phones weren't working. They also stated that they wouldn't have a ride till 0630hrs
== END 2024-05-11 07:24 | disposition home or self-care (01) ==
PROVIDERS: Emergency Provider Emergency Medicine
DX: R56.9 Unspecified convulsions (principal); F12.10 Cannabis abuse, uncomplicated; R51.9 Headache, unspecified; R05.9 Cough, unspecified; R09.81 Nasal congestion; R11.0 Nausea; R05.1 Acute cough
CPT/HCPCS: 71046; 80053; 80307; 80320; 81001; 83605; 85025; 87636; 96361; 96365; 96374; 99283; G0480; J1953; J2405; J7120

== ENCOUNTER 2024-05-11 13:49 | Outpatient (CLI) | payer SELFPAY | END 2024-05-11 13:58 | disposition home or self-care (01) | LOC: INF 13:50 | PROVIDERS: PCP Nurse Practitioner Family; Visit Provider Internal Medicine Adolescent Medicine | DX: Z48.00 Encounter for change or removal of nonsurgical wound dressing (principal) | CPT/HCPCS: G0463 ==

== ENCOUNTER 2024-05-14 15:56 | Outpatient (CLI) | payer SELFPAY | END 2024-05-14 23:59 | disposition home or self-care (01) | LOC: INF 15:58 | PROVIDERS: PCP Nurse Practitioner Family; Visit Provider Internal Medicine Adolescent Medicine | DX: L03.311 Cellulitis of abdominal wall (principal) | CPT/HCPCS: G0463 ==

== ENCOUNTER 2024-05-17 13:49 | Outpatient (CLI) | payer SELFPAY | END 2024-05-17 14:53 | disposition home or self-care (01) | LOC: INF 13:50 | PROVIDERS: Visit Provider Internal Medicine Adolescent Medicine | DX: L02.211 Cutaneous abscess of abdominal wall (principal) | CPT/HCPCS: G0463 ==

== ENCOUNTER 2024-05-18 13:53 | Outpatient (CLI) | payer SELFPAY | END 2024-05-18 14:20 | disposition home or self-care (01) | LOC: INF 13:54 | PROVIDERS: PCP Nurse Practitioner Family; Visit Provider Internal Medicine Adolescent Medicine | DX: L02.211 Cutaneous abscess of abdominal wall (principal) | CPT/HCPCS: G0463 ==

== ENCOUNTER 2024-05-19 13:59 | Outpatient (CLI) | payer SELFPAY | END 2024-05-19 14:15 | disposition home or self-care (01) | LOC: INF 13:59 | PROVIDERS: PCP Nurse Practitioner Family; Visit Provider Internal Medicine Adolescent Medicine | DX: L02.211 Cutaneous abscess of abdominal wall (principal) | CPT/HCPCS: G0463 ==

== ENCOUNTER 2024-05-20 13:44 | Outpatient (CLI) | payer SELFPAY | END 2024-05-20 14:01 | disposition home or self-care (01) | LOC: INF 13:45 | PROVIDERS: Visit Provider Internal Medicine Adolescent Medicine | DX: L02.211 Cutaneous abscess of abdominal wall (principal) | CPT/HCPCS: G0463 ==

== ENCOUNTER 2024-05-21 14:02 | Outpatient (CLI) | payer SELFPAY | END 2024-05-21 23:59 | disposition home or self-care (01) | LOC: INF 14:03 | PROVIDERS: Visit Provider Internal Medicine Adolescent Medicine | DX: L02.211 Cutaneous abscess of abdominal wall (principal) | CPT/HCPCS: G0463 ==

== ENCOUNTER 2024-05-22 13:59 | Outpatient (CLI) | payer SELFPAY | END 2024-05-22 23:59 | disposition home or self-care (01) | LOC: INF 13:59 | PROVIDERS: PCP Nurse Practitioner Acute Care; Visit Provider Internal Medicine Adolescent Medicine | DX: L02.211 Cutaneous abscess of abdominal wall (principal) | CPT/HCPCS: G0463 ==

== ENCOUNTER 2024-05-24 14:07 | Outpatient (CLI) | payer SELFPAY | END 2024-05-24 14:15 | disposition home or self-care (01) | LOC: UTC.OUT 14:09 → INF 15:08 | PROVIDERS: PCP Nurse Practitioner Family; Visit Provider Nurse Practitioner Family | DX: L03.311 Cellulitis of abdominal wall (principal) | CPT/HCPCS: G0463 ==

== ENCOUNTER 2024-05-25 14:22 | Outpatient (CLI) | payer SELFPAY | END 2024-05-25 14:35 | disposition home or self-care (01) | LOC: INF 14:23 | PROVIDERS: PCP Nurse Practitioner Family; Visit Provider Internal Medicine Adolescent Medicine | DX: L02.211 Cutaneous abscess of abdominal wall (principal) | CPT/HCPCS: G0463 ==

== ENCOUNTER 2024-05-27 13:45 | Outpatient (CLI) | payer SELFPAY | END 2024-05-27 13:55 | disposition home or self-care (01) | LOC: INF 13:45 | PROVIDERS: Visit Provider Internal Medicine Adolescent Medicine | DX: L02.211 Cutaneous abscess of abdominal wall (principal) | CPT/HCPCS: G0463 ==

== ENCOUNTER 2024-05-30 13:45 | Outpatient (CLI) | payer OTHER, SELFPAY | END 2024-05-30 14:05 | disposition home or self-care (01) | LOC: INF 13:45 | PROVIDERS: PCP Nurse Practitioner Family; Visit Provider Internal Medicine Adolescent Medicine | DX: L02.211 Cutaneous abscess of abdominal wall (principal) | CPT/HCPCS: G0463 ==

== ENCOUNTER 2024-05-31 13:43 | Outpatient (CLI) | payer OTHER, SELFPAY | END 2024-05-31 15:00 | disposition home or self-care (01) | PROVIDERS: PCP Nurse Practitioner Family; Visit Provider Internal Medicine Adolescent Medicine | DX: L02.211 Cutaneous abscess of abdominal wall (principal) | CPT/HCPCS: G0463 ==

== ENCOUNTER 2024-06-01 13:39 | Outpatient (CLI) | payer OTHER, SELFPAY | END 2024-06-01 13:50 | disposition home or self-care (01) | LOC: INF 13:40 | PROVIDERS: PCP Nurse Practitioner Family; Visit Provider Internal Medicine Adolescent Medicine | DX: L02.211 Cutaneous abscess of abdominal wall (principal) | CPT/HCPCS: G0463 ==

== ENCOUNTER 2024-06-02 13:39 | Outpatient (CLI) | payer OTHER, SELFPAY | END 2024-06-02 13:50 | disposition home or self-care (01) | LOC: INF 13:39 | PROVIDERS: PCP Nurse Practitioner Family; Visit Provider Internal Medicine Adolescent Medicine | DX: L02.211 Cutaneous abscess of abdominal wall (principal) | CPT/HCPCS: G0463 ==

== ENCOUNTER 2024-06-03 13:37 | Outpatient (CLI) | payer OTHER, SELFPAY | END 2024-06-03 13:47 | disposition home or self-care (01) | LOC: INF 13:37 | PROVIDERS: PCP Nurse Practitioner Family; Visit Provider Internal Medicine Adolescent Medicine | DX: L02.211 Cutaneous abscess of abdominal wall (principal) | CPT/HCPCS: G0463 ==

== ENCOUNTER 2024-06-04 13:44 | Outpatient (CLI) | payer OTHER, SELFPAY | END 2024-06-04 23:59 | disposition home or self-care (01) | LOC: INF 13:45 | PROVIDERS: PCP Nurse Practitioner Family; Visit Provider Internal Medicine Adolescent Medicine | DX: L03.311 Cellulitis of abdominal wall (principal) | CPT/HCPCS: G0463 ==

== ENCOUNTER 2024-06-05 13:56 | Outpatient (CLI) | payer OTHER, SELFPAY | END 2024-06-05 23:59 | disposition home or self-care (01) | LOC: INF 13:58 | PROVIDERS: PCP Nurse Practitioner Family; Visit Provider Internal Medicine Adolescent Medicine | DX: L03.311 Cellulitis of abdominal wall (principal) | CPT/HCPCS: G0463 ==

== ENCOUNTER 2024-06-06 13:42 | Outpatient (CLI) | payer OTHER, SELFPAY | END 2024-06-06 13:56 | disposition home or self-care (01) | LOC: INF 13:42 | PROVIDERS: PCP Nurse Practitioner Family; Visit Provider Internal Medicine Adolescent Medicine | DX: L02.211 Cutaneous abscess of abdominal wall (principal) | CPT/HCPCS: G0463 ==

== ENCOUNTER 2024-07-09 20:39 | Emergency (ER) | payer OTHER, SELFPAY ==
[2024-07-09 20:48] VITALS: BP 142/87; PULSE 86; RESP 18; TEMP 37.1; O2SAT 98; BMI 36.3
--- NOTE | 2024-07-09 21:20 | HMH.EDGENADL ---
Discharge Plan Disposition Patient Disposition: Home, Self-Care Condition: Good Prescriptions Prescriptions: No Action levetiracetam 1,000 mg tablet 1,000 mg PO BID sucralfate 1 gram tablet 1 g PO ACHS cyanocobalamin (vitamin B-12) 1,000 mcg tablet 1,000 mcg PO DAILY hydroxyzine HCl 50 mg tablet 50 mg PO DAILY Patient Comments: TAKE 1 TABLET BY MOUTH DAILY ferrous sulfate [FeroSul] 325 mg (65 mg iron) tablet 325 mg PO DAILY topiramate 200 mg tablet 200 mg PO BID Patient Comments: TAKE 1 TABLET BY MOUTH TWICE DAILY omeprazole 40 mg Capsule,Delayed Release(Dr/Ec) 40 mg PO DAILY famotidine [Pepcid] 20 mg Tablet 20 mg PO BID amoxicillin-pot clavulanate 875-125 mg tablet 1 tab PO BID 5 Days Qty: 10 0RF Referrals Follow up/Referrals: Provider,Referral, [Primary Care Provider] - See instructions Activity Restrictions/Add. Instructions Additional Instructions/Restrictions: Today your evaluated in the emergency department. Please take [id number] Tylenol for pain. Please follow-up with dentistry. Return to the ED for worsening of condition. Clinical Impressions Clinical Impression: Chronic dental pain Instructions Patient Instructions: DI for Dental Pain Print Language Print Language: Albanian Discharge ED Provider: Cal Gallardo General Adult HPI <Jaky Maria APRN - Last Filed: 07/09/24 21:23> General Chief complaint: Dental/Oral Stated complaint: Pain from teeth falling out Time Seen by Provider: 07/09/24 20:42 Mode of Arrival: EMS Source of Information: Patient and EMS Description of Symptoms (Recalled from ER Triage Doc. by RN): Patient to ED via [facility] with complaints of oral pain, and her tooth falling out. Patient states that she was sitting by self when her lower tooth just randomly fell out of her mouth. Patient states that there is several teeth that are loose and close to falling out as well. Patient has not seen dentist in years. Oral pain 5/10, sore/tender, red and inflamed. Bleeding controlled during assessment. History of Present Illness HPI narrative: patient is a 38-year-old female PMHx obesity, seizure, chronic dental pain, depression who presents to the ED after her lower front tooth fell out earlier today. Patient states that they home she was staying at make her come to the ED for evaluation. Related Data Home Medications ?Medication ?Instructions ?Recorded ?Confirmed cyanocobalamin (vitamin B-12) 1,000 mcg PO DAILY 03/02/24 05/26/24 1,000 mcg tablet ferrous sulfate 325 mg (65 mg 325 mg PO DAILY 03/02/24 05/26/24 iron) tablet (FeroSul) hydroxyzine HCl 50 mg tablet 50 mg PO DAILY 03/02/24 05/26/24 levetiracetam 1,000 mg tablet 1,000 mg PO BID 03/02/24 05/26/24 sucralfate 1 gram tablet 1 g PO ACHS 03/02/24 05/26/24 topiramate 200 mg tablet 200 mg PO BID 03/02/24 05/26/24 famotidine 20 mg tablet (Pepcid) 20 mg PO BID 05/01/24 05/26/24 omeprazole 40 mg capsule,delayed 40 mg PO DAILY 05/01/24 05/26/24 release Previous Rx's ?Medication ?Instructions ?Recorded amoxicillin 875 mg-potassium 1 tab PO BID 5 days #10 tabs 05/04/24 clavulanate 125 mg tablet Allergies Allergy/AdvReac Type Severity Reaction Status Date / Time cyclobenzaprine (From Allergy Unknown Verified 05/26/24 10:47 Flexeril) allergy reaction prednisone Allergy Unknown Verified 05/26/24 10:47 allergy reaction [facility] <Jaky Maria APRN - Last Filed: 07/09/24 21:23> [facility] Disclaimer: The information contained in this section may have been updated after the patient was seen, as this information can be updated by other users. Medical History Cholecystitis ADHD Depression Anxiety GERD (gastroesophageal reflux disease) Seizure disorder Surgical History History of tonsillectomy History of Family History Other Alcohol abuse Family history of cancer Social History Smoking Status: Current every day smoker alcohol intake: former substance use type: denies use current occupational status: unemployed Travel in the last 8 weeks: None Have you lived/traveled outside [place] in past 30 days?: No Contact w/someone who lives/traveled outside [place] past 30 days?: No Exposure to someone with infectious disease in past 14 days?: No Do you have a fever (greater than 100.4 F or 38 C)?: No Have you tested positive for COVID-19: No Exposed to someone with COVID-19 in past 14 days?: No Do you have a sore throat?: No Do you have a cough?: No Do you have any weakness?: No Do you have any diarrhea?: No Are you experiencing any unusual bleeding?: No Do you have any muscle aches/pain?: No Do you have any abdominal pain?: No Are you experiencing loss of taste or smell?: No Other Medical History Have you received the Flu Vaccine for this season: No Have you received the Pneumonia Vaccine: No <Jaky Maria APRN - Last Filed: 07/09/24 21:23> ROS Obtained: Yes Systems reviewed as appropriate & no additional complaints except as documented Physical Exam <Jaky Maria APRN - Last Filed: 07/09/24 21:23> General General appearance: alert and in no apparent distress Head Head exam: atraumatic, normocephalic and other (Very poor dental health, plaque and tartar buildup noted, gingivitis, gum lines are receding and erythematous.) Eye Eye exam: Present PERRL and EOMI ENT ENT exam: Present mucous membranes moist Neck Neck exam: Present normal inspection and full ROM Chest Chest inspection: Present symmetric chest wall rise Respiratory Respiratory exam: Present normal lung sounds bilaterally; Absent respiratory distress, wheezes or stridor Cardiovascular Cardiovascular exam: Present regular rate and normal rhythm Abdominal Exam Abdominal exam: Present soft; Absent distention or tenderness Comment: Right lower quadrant abdominal wound with clean, dry dressing in place. Under the dressing there is a 8 cm x 2 cm open wound but no purulent drainage, no foul smell, no surrounding induration. Wound appears to have healthy, healing tissue. Extremities Exam Extremities exam: Present full ROM; Absent edema or joint swelling Neurological Exam Neurological exam: Present alert, oriented X3, CN II-XII intact and normal gait; Absent motor sensory deficit Psychiatric Psychiatric exam: Present normal affect and normal mood Skin Skin exam: Present warm and dry Medical Decision Making <Jaky Maria APRN - Last Filed: 07/09/24 21:23> Medical Records Screening: Per USPSTF and CDC recommendations, given the prevalence of disease in our region, it is our hospital?s policy to screen for HIV and viral Hepatitis for all patients aged 18 and over and those with ongoing risk factors. Lloyd Inquiry Pt receiving controlled substance: No Lloyd was queried for this patient: No Vital Signs: 07/09/24 20:48 07/09/24 21:24 07/09/24 21:31 Temperature 98.7 F 98.1 F Temperature Source Oral Oral Pulse Rate 80 84 Pulse Rate [Left] 86 Respiratory Rate 18 19 18 Blood Pressure 129/89 122/73 Blood Pressure [Right Arm] 142/87 H Blood Pressure Mean [Right Arm] 105 Blood Pressure Source Automatic Cuff Blood Pressure Source [Right Arm] Automatic Cuff Blood Pressure Position Sitting Blood Pressure Position [Right Arm] Sitting 02 Sat by Pulse Oximetry 98 99 Oxygen Delivery Method Room Air Room Air Room Air Medical Decision Narrative: In summary, patient is a 38-year-old female PMHx obesity, seizure, chronic dental pain, depression who presents to the ED after her lower front tooth fell out earlier today. Patient states that they home she was staying at make her come to the ED for evaluation. Patient states that she does have dental pain, chronic in nature but has taken acetaminophen. Denies any other medical complaints at this time. Denies fever, chills, body aches, headache, neck pain, chest pain, shortness of breath, abdominal pain. Upon initial evaluation patient is alert, oriented and stable. She brought in her tooth that fell out, her physical exam is remarkable for very poor dental health, large amount of plaque and tartar buildup on teeth, gingivitis noted. Patient states that she does not brush her teeth because her gums bleed. I discussed with patient that she will need to see dentistry. Advised her to take acetaminophen or ibuprofen [id number] for symptomatic relief. I do not see any infectious signs at this time. I do not feel any antibiotics are necessary at today's visit. I discussed with patient to return to the ED for any worsening of condition and she is agreeable to plan of care at this time. <Cal Gallardo MD - Last Filed: 07/09/24 22:33> Vital Signs: 07/09/24 20:48 07/09/24 21:24 07/09/24 21:31 Temperature 98.7 F 98.1 F Temperature Source Oral Oral Pulse Rate 80 84 Pulse Rate [Left] 86 Respiratory Rate 18 19 18 Blood Pressure 129/89 122/73 Blood Pressure [Right Arm] 142/87 H Blood Pressure Mean [Right Arm] 105 Blood Pressure Source Automatic Cuff Blood Pressure Source [Right Arm] Automatic Cuff Blood Pressure Position Sitting Blood Pressure Position [Right Arm] Sitting 02 Sat by Pulse Oximetry 98 99 Oxygen Delivery Method Room Air Room Air Room Air Medical Decision Narrative: In summary, patient is a 38-year-old female PMHx obesity, seizure, chronic dental pain, depression who presents to the ED after her lower front tooth fell out earlier today. Patient states that they home she was staying at make her come to the ED for evaluation. Patient states that she does have dental pain, chronic in nature but has taken acetaminophen. Denies any other medical complaints at this time. Denies fever, chills, body aches, headache, neck pain, chest pain, shortness of breath, abdominal pain. Upon initial evaluation patient is alert, oriented and stable. She brought in her tooth that fell out, her physical exam is remarkable for very poor dental health, large amount of plaque and tartar buildup on teeth, gingivitis noted. Patient states that she does not brush her teeth because her gums bleed. I discussed with patient that she will need to see dentistry. Advised her to take acetaminophen or ibuprofen [id number] for symptomatic relief. I do not see any infectious signs at this time. I do not feel any antibiotics are necessary at today's visit. I discussed with patient to return to the ED for any worsening of condition and she is agreeable to plan of care at this time. I was consulted by the PASHA, and we discussed the complexity of the problems being addressed. I approved the treatment and management plan for this patient's care in the Emergency Department, thus performing a substantive portion of the medical decision making. Cal Gallardo MD Critical Care <Jaky Maria, [employer] - Last Filed: 07/09/24 21:23> Critical Care Time Critical Care Time: No
[2024-07-09 21:24] VITALS: BP 129/89; PULSE 80; RESP 19; TEMP 36.7; O2SAT 100
--- NOTE | 2024-07-09 21:29 | PC.NURSE ---
Spoke with [employer] employee for patient transport back to facility. 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
[2024-07-09 21:31] VITALS: BP 122/73; PULSE 84; RESP 18; O2SAT 99
== END 2024-07-09 21:40 | disposition home or self-care (01) ==
PROVIDERS: Emergency Provider Emergency Medicine
DX: K08.9 Disorder of teeth and supporting structures, unspecified (principal); K08.89 Other specified disorders of teeth and supporting structures; F17.210 Nicotine dependence, cigarettes, uncomplicated
CPT/HCPCS: 99281

== ENCOUNTER 2025-03-08 15:09 | Observation (INO) | payer OTHER, SELFPAY ==
--- OUTSIDE RECORDS SUMMARY | 2025-03-03 16:05 | XMS_ITS | Encounter Summary ---
Author Organization Healthcare Address [address] [place] [address] Care Team Providers Care Inhalation Therapist Name Role Phone Pcp, No Primary Care Provider Unavailabl e Reason for Visit * Reason Comments Altered Mental Status Encounter Details Date Type Department Care Team (Late st Contact Info) Description 03/03/2025 4:05 PM EST - 03/03/2025 11:51 PM EST Emergency [facility] [address] [place] [address] Phillip Carney MD [address] [place] [address] Ramirez De Luna MD [address] [place] [id number] Encounter for medical assessment (Primary Dx); Altered mental status, unspecified altered mental status type Discharge Disposition: Senior Care Facility Social History Tobacco Use Types Packs/Day Years Used Date Smoking Tobacco: Former Alcohol Use Standard Drinks/Week Comments No 0 (1 standard drink = 0.6 oz pur e alcohol) Comments Unknown Sex and Gender Information Value Date Recorded Sex Assigned at Not on file Legal Sex Female 5:56 PM EDT Gender Identity Not on file Sexual Orientation Not on file documented as of this encounter Last Filed Vital Signs Vital Sign Reading Time Taken Comments Blood Pressure 124/78 03/03/2025 10:30 PM EST Pulse 89 03/03/2025 10:30 PM EST Temperature 36.8 C (98.2 F) 03/03/2025 10:30 PM EST Respiratory Rate 15 03/03/2025 10:30 PM EST Oxygen Saturation 94% 03/03/2025 10:30 PM EST Inhaled Oxygen Concentration - - Weight 110 kg (242 lb 8.1 oz) 03/03/2025 4:24 PM EST Height - - Body Mass Index 41.63 02/18/2017 2:40 PM EDT documented in this encounter Functional Status * Calculated C-SSRS Risk Score (Lifetime/Recent) Answer Date of Assessment Author No Risk Indicated 03/03/2025 4:47 PM EST Mercy Brandon RN * Question Answer Date of Assessment Author 1. Wish to be (Past 1 Month) No 025 4:47 PM EST Mercy Brandon, RN 2. Non-Specific Active Suici pilar Thoughts (Past 1 Month) No 03/03/2025 4:47 PM EST Madeline Brandon, OREN 6. Suicidal Behavior (Lifetime) No 4:47 PM EST Mercy Brandon RN documented as of this encounter Discharge Instructions * Discharge Instructions* Padmini Espinosa MD - 03/03/2025 8:22 PM EST Please return to ED if your symptoms worsen, change in location, change in severity, new symptoms develop or if you become concerned for your health. Please take seizure medications as prescribed. documented in this encounter Miscellaneous Notes * Progress Notes - Ana Riley - 03/03/2025 11:29 PM EST Case Management Note Patient Identification: Truong Ring 39 y.o. female CSN: [id number] Admission: 03/03/2025 4:05 PM Primary Problem: Acute encephalopathy ED SW responded to a request to assist pt with discharge transportation. It was determined pt met 300% Federal Poverty Guidelines. FPG form completed and faxed to medical records. ED SW arranged d/c transport. Address verified as [address] [place] [address]. Ride requested. Details relayed to RN/team.Pt picked-up and taken to address. No further needs identified. Ana Riley INTERACTIVE DEVELOPER, MICROBIOLOGY TECHNICIAN [facility] Transport Conductor Senior Case Management ED Social Work SW Case Management Pager evenings/weekends Case Management Main Office Mon-Fri * Consults - Callie Santoyo APRN - 03/03/2025 10:54 PM ESTAssociated Order(s): Consult to [facility] Consult to [facility] Consult performed by: Callie Santoyo APRN Consult ordered by: Phillip Carney MD Reason for consult: assessment for providing observation and medical management Reason For Consult Altered mental status Requesting Service: ED Requested Date/Time: 03/03/2025 History Of Present Illness Truong Ring is a 39 y.o. female with history of seizures, anxiety, GERD and mood disorder who presents to ED with concern for worsening neurological dysfunction. All information gained from chart review as patient is mildly confused with questionable capacity. Hospital Medicine was originally consulted as the ED was unable to get in touch with the patient's caregiver to confirm baseline mental status and there was not a safe disposition for her. Medical/Surgical/Social/Family History Unable to obtain subjective information because: altered mental status Allergies Patient has no allergy information on record. Medications Current Medications[1] Review of Systems Review of Systems Unable to perform ROS: Mental status change Vitals Temp: [36.9 ??C (98.4 ??F)-37 ??C (98.6 ??F)] 36.9 ??C (98.4 ??F) Heart Rate: [66-90] 79 Resp: [13-22] 18 BP: (108-123)/(49-88) 121/62 Physical Exam Vitals reviewed. Constitutional: General: She is not in acute distress. Appearance: Normal appearance. She is obese. She is not ill-appearing or toxic-appearing. HENT: Head: Normocephalic and atraumatic. Nose: Nose normal. No congestion or rhinorrhea. Mouth/Throat: Mouth: Mucous membranes are moist. Pharynx: Oropharynx is clear. No oropharyngeal exudate or posterior oropharyngeal erythema. Eyes: Extraocular Movements: Extraocular movements intact. Conjunctiva/sclera: Conjunctivae normal. Pupils: Pupils are equal, round, and reactive to light. Neck: Vascular: No carotid bruit. Cardiovascular: Rate and Rhythm: Normal rate and regular rhythm. Heart sounds: No murmur heard. No friction rub. No gallop. Pulmonary: Effort: Pulmonary effort is normal. No respiratory distress. Breath sounds: Normal breath sounds. No stridor. No wheezing, rhonchi or rales. Chest: Chest wall: No tenderness. Abdominal: General: Bowel sounds are normal. There is no distension. Palpations: Abdomen is soft. Tenderness: There is no abdominal tenderness. Musculoskeletal: General: No swelling, tenderness or deformity. Normal range of motion. Cervical back: Normal range of motion and neck supple. No rigidity or tenderness. Lymphadenopathy: Cervical: No cervical adenopathy. Skin: General: Skin is warm. Capillary Refill: Capillary refill takes less than 2 seconds. Findings: No lesion or rash. Neurological: General: No focal deficit present. Mental Status: She is alert. She is disoriented. GCS: GCS eye subscore is 4. GCS verbal subscore is 4. GCS motor subscore is 6. Cranial Nerves: Cranial nerves 2-12 are intact. No cranial nerve deficit. Sensory: Sensation is intact. No sensory deficit. Motor: Motor function is intact. No weakness. Coordination: Coordination normal. Comments: Patient oriented to person, time, and hospital though doesn't know which one and when asked why she was in the hospital she responded because of my seizures . Patient 's responses very delayed and speech slow Psychiatric: Attention and Perception: She is inattentive. Mood and Affect: Mood normal. Affect is blunt. Speech: Speech is delayed. Behavior: Behavior is slowed and withdrawn. Cognition and Memory: Memory is impaired. Judgment: Judgment normal. Results Review I have reviewed the latest lab and imaging results. Assessment & Plan Acute encephalopathy Patient originally brought to ED due to reported worsening neuro dysfunction by patient's caregivers. Patient reportedly had no witnessed seizures. On arrival patient had very delayed verbal responsewith flat affect at baseline mentation. Patient was hemodynamically stable since arrival. Labs showed mild leukocytosis, but no obvious source of infection noted. ED provider was reportedly able to get a hold of patient 's critical care physician assistant and noted that the patient was at her baseline mental status and thus patient was able to discharge back to her facility. Thank you for consulting [facility] Callie Santoyo APRN [1] No current facility-administered medications for this encounter. No current outpatient medications on file. Cosigned by Debi Valerio DO at 03/04/2025 1:28 AM EST Associated attestation - Debi Valerio DO - 03/04/2025 1:28 AM EST The patient was seen only by Advanced Practice Provider ([facility]). * Progress Notes - Rosa Elena Abbott - 03/03/2025 9:28 PM EST Case Management APS: SW received call re: Patient's guardianship/POA status. SW conducted chart review which revealed that Patient had APS involvement in January of 2025. APS worker [employer] ([phone]) coordinated with OSH to [facility] (assisted living [facility]) to continue to work on establishing guardianship. SW made contact with after hours State Guardianship hotline ([phone]) to inquire about guardianship.The Hotline reported that they do have a current case that they are working with but Patient does not have a current guardian so Patient is technically still her own decision maker. SW attempted to make contact with APS worker [employer] to obtain additional information. SW unsuccessful, left voicemail. SW notified medical team of above information. Patient's disposition selected for admiit, Primary CM to continue to follow. Rosa Elena Abbott, INTERACTIVE DEVELOPER, MICROBIOLOGY TECHNICIAN Evening ED SW * ED Triage Notes - Mercy Brandon, RN - 03/03/2025 4:05 PM EST Pt presented from [facility] after admissions manager rn noticed increased neurological deficit from baseline. [employer] reports pt began clicking her tongue and had delayed responses which has occurred previously prior to past seizure. Currently taking Keppra and Topamax. documented in this encounter Plan of Treatment Not on file documented as of this encounter Procedures Procedure Name Priority Date/Time Associated Diagnosis Comments URINALYSIS WITH REFLEX MICROSCOPIC AND CULTURE STAT 03/03/2025 7:47 PM EST URINE WHITE PANEL STAT 03/03/2025 7:47 PM EST URINALYSIS MICROSCOPIC FOR UA REFLEX STAT 03/03/2025 7:47 PM EST DRUG ABUSE SCREEN, URINE STAT 03/03/2025 7:47 PM EST URINALYSIS WITH REFLEX MICROSCOPIC STAT 03/03/2025 7:47 PM EST ED HIV 1/2 ANTIBODY/ANTIGEN SCREEN WITH REFLEX TO HIV I/II DIFFERENTIATION STAT 03/03/2025 6:02 PM EST ED PROTOCOL HIV 1/2 ANTIBODY/ANTIGEN SCREEN W/REFLEX TO HIV 1/2 ANTIBODY DIFFERENTIATION STAT 03/03/2025 6:02 PM EST HEPATITIS C ANTIBODY - ED W/REFLEX TO HCV QUANT PCR STAT 03/03/2025 6:02 PM EST LEVETIRACETAM LEVEL STAT 03/03/2025 6 :02 PM EST CBC WITH AUTO DIFFERENTIAL STAT 03/03/2025 6:02 PM EST TEST QUALITATIVE PLASMA STAT 03/03/2025 6:02 PM EST TSH STAT 03/03/2025 6:02 PM EST FREE T4, PLASMA STAT 03/03/2025 6:02 PM EST MAGNESIUM, PLASMA STAT 03/03/2025 6:0 2 PM EST BLOOD GAS PANEL, VENOUS STAT 03/03/20 6:02 PM EST COMPREHENSIVE METABOLIC PANEL, PLASMA STAT 03/03/2025 6:02 PM EST ECG ADULT STAT 03/03/2025 5:31 PM EST POCT GLUCOSE METER UNSOLICITED RESULTS Routine 03/03/2025 4:16 PM EST documented in this encounter Results * Urinalysis Microscopic Examination (03/03/2025 7:47 PM EST) Urine Urine specimen obtained by clean catch procedure / Unknown Non-blood Collection / Unknown 03/03/2025 7:47 PM EST 03/03/2025 7:52 PM EST Phillip Carney MD LAB URINE ORDERABLES Final Result Performing Organization Address [facility] Co de Phone Number [facility] [address] [place] [address] * Urine White Panel (03/03/2025 7:47 PM EST) Extra Reflex urine culture not indicated 03/03/2025 9:01 PM EST [facility] Urine Urine specimen obtained by clean catch procedure / Unknown Non-blood Collection / Unknown 03/03/2025 7:47 PM EST 03/03/2025 7:58 PM EST Phillip Carney MD LAB URINE ORDERABLES Final Result Performing Organization Address City/[facility]/ZIP Co de Phone Number [facility] [address] [place] [address] * (ABNORMAL) Urinalysis with reflex microscopic (Culture NOT Included) (03/03/2025 7:47 PM EST) Color, Urine Yellow LAB URINALYSIS - AUTOMATED METHOD 03/03/2025 8:25 PM EST [facility] Clarity, Urine Clear LAB URINALYSIS - AUTOMATED METHOD 03/03/2025 8:25 PM EST [facility] Spec Rupert, Urine 1.014 1.005 - 1.030 LAB URINALYSIS - AUTOMATED METHOD 03/03/2025 8:25 PM [facility] pH, Urine 7.5 5.0 - 8.0 LAB URINALYSIS - AUTOMATED METHOD 03/03/2025 8:25 PM [facility] Protein, Urine Negative Negative mg/dL LAB URINALYSIS - AUTOMATED METHOD 03/03/2025 8:25 PM [facility] Glucose, Urine Negative Negative mg/dL LAB URINALYSIS - AUTOMATED METHOD 03/03/2025 8:25 PM [facility] Ketones, Urine Negative Negative mg/dL LAB URINALYSIS - AUTOMATED METHOD 03/03/2025 8:25 PM [facility] Blood, Urine Negative Negative LAB URINALYSIS - AUTOMATED METHOD 03/03/2025 8:25 PM [facility] Bilirubin, Urine Negative Negative LAB URINALYSIS - AUTOMATED METHOD 03/03/2025 8:25 PM [facility] Urobilinogen, Urine 1.0 0.2 to 1.0 mg/dL LAB URINALYSIS - AUTOMATED METHOD 03/03/2025 8:25 PM [facility] Leukocytes, Urine Small(A) Negative LAB URINALYSIS - AUTOMATED METHOD 03/03/2025 8:25 PM [facility] Nitrite, Urine Negative Negative LAB URINALYSIS - AUTOMATED METHOD 03/03/2025 8:25 PM [facility] RBC, Urine 3 0 to 3 /HPF LAB URINALYSIS - AUTOMATED METHOD 03/03/2025 8:25 PM [facility] Comment:This result was prev iously suppressed from the chart. WBC, Urine 0 - 5 0 to 5 /HPF LAB URINALYSIS - AUTOMATED METHOD 03/03/2025 8:25 PM [facility] Comment:This result was prev iously suppressed from the chart. Squamous Epithelial Cells 6 - 10(A) 0 to 5 /HPF LAB URINALYSIS - AUTOMATED METHOD 03/03/2025 8:25 PM [facility] Comment:This result was prev iously suppressed from the chart. Hyaline Casts 0 - 2 0 to 5 /LPF LAB URINALYSIS - AUTOMATED METHOD 03/03/2025 8:25 PM [facility] Comment:This result was prev iously suppressed from the chart. Bacteria, Urine Present Negative LAB URINALYSIS - AUTOMATED METHOD 03/03/2025 8:25 PM EST [facility] Comment:This result was prev iously suppressed from the chart. Urine Urine specimen obtained by clean catch procedure / Unknown Non-blood Collection / Unknown 03/03/2025 7:47 PM EST 03/03/2025 7:52 PM EST us Phillip Carney MD LAB URINE ORDERABLES Final Result [facility] [address] [place] [address] * Drug abuse screen (03/03/2025 7:47 PM EST) Amphetamine Screen Urine Negative Cutoff: 500 ng/mL 03/03/2025 8:13 PM [facility] Benzodiazepines Screen Urine Negative Cutoff: 200 ng/mL 03/03/2025 8:13 PM [facility] Cannabinoid Screen Urine Negative Cutoff: 50 ng/mL 03/03/2025 8:13 PM [facility] Cocaine Screen Urine Negative Cutoff: 300 ng/mL 03/03/2025 8:13 PM EST [facility] Barbiturate Screen Urine Negative Cutoff: 200 ng/mL 03/03/2025 8:13 PM [facility] Opiate Screen Urine Negative Cutoff: 300 ng/mL 03/03/2025 8:13 PM [facility] Methadone Screen Urine Negative Cutoff: 300 ng/mL 03/03/2025 8:13 PM [facility] Buprenorphine Screen Urine Negative Cutoff: 10 ng/mL 03/03/2025 8:13 PM [facility] Fentanyl Screen Urine Negative Cutoff: 1 ng/mL 03/03/2025 8:13 PM EST [facility] Oxycodone Screen Urine Negative Cutoff: 100 ng/mL 03/03/2025 8:13 PM [facility] Urine Urine specimen obtained by clean catch procedure / Unknown Non-blood Collection / Unknown 03/03/2025 7:47 PM EST 03/03/2025 7:52 PM EST Phillip Carney MD LAB URINE ORDERABLES Final Result Performing Organization Address City/[facility]/ZIP Co de Phone Number [facility] [address] [place] [address] * ED HIV 1/2 Antibody/Antigen Screen w/Reflex to HIV 1/2 Differentiation (03/03/2025 6:02 PM EST) HIV 1 & 2 Antibody/Antigen Screen Non Reactive Non Reactive 03/03/2025 7:04 PM EST [facility] Comment:Screening for HIV 1 & 2 antibodies, and P24 antigen is NONREACTIVE. No confirmatory testing is required. Blood Venous blood specimen / Unknown Venipuncture / Unknown 03/03/2025 6:02 PM EST 03/03/2025 6:22 PM EST Phillip Carney MD LAB BLOOD ORDERABLES Final Result Performing Organization Address City/[facility]/ZIP Co de Phone Number [facility] [address] [place] [address] * Hepatitis C Antibody - ED (03/03/2025 6:02 PM EST) Pathologist [facility] Hepatitis C Antibody Negative Negative 03/03/2025 7:[address] [facility] Blood Venous blood specimen / Unknown Venipuncture / Unknown 03/03/2025 6:02 PM EST 03/03/2025 6:22 PM EST Phillip Carney MD LAB BLOOD ORDERABLES Final Result [facility] [address] [place] [address] * Levetiracetam (Keppra) (03/03/2025 6:02 PM EST) Pathologist [facility] Levetiracetam (Keppra) 15.9 12.0 - 46.0 ug/mL 03/08/2025 5:26 AM EST [facility] Blood Venous blood specimen / Unknown Venipuncture / Unknown 03/03/2025 6:02 PM EST 03/03/2025 6:22 PM EST Narrative [facility] - 03/08/2025 5:26 AM EST Test performed by LC-MS/MS at the [facility]. This test was developed and its performance characteristics determined by [facility]. It has not been cleared or approved by the FDA. The laboratory is regulated under CLIA as qualified to perform high-complexity testing. This test is used for clinical purposes. Phillip Carney MD LAB BLOOD ORDERABLES Final Result Performing Organization Address City/[facility] [place] [address] * Free T4, Plasma (03/03/2025 6:02 PM EST) Free T4, Plasma 1.1 0.8 - 1.7 ng/dL 03/03/2025 6:58 PM EST [facility] Blood Venous blood specimen / Unknown Venipuncture / Unknown 03/03/2025 6:02 PM EST 03/03/2025 6:[address] [facility] - 03/03/2025 6:58 PM EST Free T4 Trimester Specific Ranges 1st Trimester 0.9 - 1.50 ng/dL 2nd Trimester 0.7 - 1.40 ng/dL 3rd Trimester 0.7 - 1.24 ng/dL Phillip Carney MD LAB BLOOD ORDERABLES Final Result Performing Organization Address City/[facility] Co de Phone Number [facility] [address] [place] [address] * Thyroid Stimulating Hormone, Plasma (03/03/2025 6:02 PM EST) Thyroid Stimulating Hormone, Plasma 1.64 0.40 - 4.20 uIU/mL 03/03/2025 6:58 PM EST [facility] Blood Venous blood specimen / Unknown Venipuncture / Unknown 03/03/2025 6:02 PM EST 03/03/2025 6:13 PM EST Narrative [facility] - 03/03/2025 6:58 PM EST Trimester Specific Ranges TSH ( IU/mL) 1st Trimester 0.1 - 3.0 2nd Trimester 0.19 - 4.06 3rd Trimester 0.3 - 3.7 us Phillip Carney MD LAB BLOOD ORDERABLES Final Result [facility] [address] [place] [address] * (ABNORMAL) Blood gas panel, venous (03/03/2025 6:02 PM EST) pH, Venous 7.34 7.32 - 7.43 LAB HEMATOLOGY METHOD 03/03/2025 6:15 PM EST [facility] pCO2, Venous 43 37 - 52 mmHg LAB HEMATOLOGY METHOD 03/03/2025 6:15 PM EST [facility] pO2, Venous 23(L) 25 - 40 mmHg LAB HEMATOLOGY METHOD 03/03/2025 6:15 PM EST [facility] SO2, Measured, Venous 40(L) 65 - 80 % LAB HEMATOLOGY METHOD 03/03/2025 6:15 PM EST [facility] Base Excess, Venous -3.0(L) -2.0 - 3.0 mmol/L LAB HEMATOLOGY METHOD 03/03/2025 6:15 PM EST [facility] Bicarbonate, Calculated, Venous 23 22 - 26 mmol/L LAB HEMATOLOGY METHOD 03/03/2025 6:15 PM EST [facility] Hematocrit, Whole Blood 43.3 34.0 - 45.0 % LAB HEMATOLOGY METHOD 03/03/2025 6:15 PM EST [facility] Sodium, Whole Blood 141 136 - 145 mmol/L LAB HEMATOLOGY METHOD 03/03/2025 6:15 PM EST [facility] Potassium, Whole Blood 3.8 3.6 - 4.9 mmol/L LAB HEMATOLOGY METHOD 03/03/2025 6:15 PM EST [facility] Chloride, Whole Blood 108(H) 97 - 107 mmol/L LAB HEMATOLOGY METHOD 03/03/2025 6:15 PM EST [facility] Glucose, Whole Blood 85 74 - 99 mg/dL LAB HEMATOLOGY METHOD 03/03/2025 6:15 PM EST [facility] Lactate, Venous, Whole Blood 1.1 0.5 - 2.2 mmol/L LAB HEMATOLOGY METHOD 03/03/2025 6:15 PM EST [facility] Ionized Calcium, Whole Blood 4.8 4.6 - 5.1 mg/dL LAB HEMATOLOGY METHOD 03/03/2025 6:15 PM EST [facility] Blood Venous blood specimen / Unknown Venipuncture / Unknown 03/03/2025 6:02 PM EST 03/03/2025 6:12 PM EST Phillip Carney MD LAB BLOOD ORDERABLES Final Result [facility] [address] [place] [address] * hCG qualitative (03/03/2025 6:02 PM EST) Test Negative Negative 03/03/2025 6:58 PM EST [facility] Blood Venous blood specimen / Unknown Venipuncture / Unknown 03/03/2025 6:02 PM EST 03/03/2025 6:13 PM EST Narrative [facility] - 03/03/2025 6:58 PM EST Reference Range: Males and non- females: Negative. Phillip Carney MD LAB BLOOD ORDERABLES Final Result Performing Organization Address City/[facility]/ZIP Co de Phone Number [facility] [address] [place] [address] * Magnesium (03/03/2025 6:02 PM EST) Magnesium, Plasma 1.9 1.9 - 2.4 mg/dL 03/03/2025 6:58 PM EST [facility] Blood Venous blood specimen / Unknown Venipuncture / Unknown 03/03/2025 6:02 PM EST 03/03/2025 6:13 PM EST Phillip Carney MD LAB BLOOD ORDERABLES Final Result Performing Organization Address City/[facility]/ZIP Co de Phone Number [facility] [address] [place] [address] * CMP (03/03/2025 6:02 PM EST) Glucose, Plasma 86 74 - 99 mg/dL 03/03/2025 6:58 PM EST [facility] BUN, Plasma 13 7 - 21 mg/dL 03/03/2025 6:58 PM [facility] Creatinine, Plasma 0.75 0.60 - 1.10 mg/dL 03/03/2025 6:58 PM EST [facility] BUN/Creatinine Ratio 17 03/03/2025 6:58 PM EST [facility] Sodium, Plasma 139 136 - 145 mmol/L 03/03/2025 6:58 PM [facility] Potassium, Plasma 3.9 3.6 - 4.9 mmol/L 03/03/2025 6:58 PM [facility] Chloride, Plasma 106 97 - 107 mmol/L 03/03/2025 6:58 PM [facility] CO2, Plasma 22 22 - 29 mmol/L 03/03/2025 6:58 PM [facility] Anion Gap 11 6 - 16 mmol/L 03/03/2025 6:58 PM [facility] Total Calcium, Plasma 9.2 8.9 - 10.2 mg/dL 03/03/2025 6:58 PM [facility] Total Protein 7.0 6.3 - 7.9 g/dL 03/03/2025 6:58 PM [facility] Albumin, Plasma 4.0 3.5 - 5.2 g/dL 03/03/2025 6:58 PM [facility] AST, Plasma 11 10 - 35 U/L 03/03/2025 6:58 PM [facility] ALT, Plasma 15 10 - 35 U/L 03/03/2025 6:58 PM [facility] Alkaline Phosphatase, Plasma 94 35 - 104 U/L 03/03/2025 6:58 PM [facility] Total Bilirubin, Plasma 0.3 0.2 - 1.1 mg/dL 03/03/2025 6:58 PM [facility] eGFRcr 105.3 mL/min/1.7 3m*2 03/03/2025 6:58 PM EST [facility] Comment:Reported eGFRcr in m L/min/1.73m2 is based the CKD-EPI 2020 equation that does not use a race coefficient. Blood Venous blood specimen / Unknown Venipuncture / Unknown 03/03/2025 6:02 PM EST 03/03/2025 6:13 PM EST us Phillip Carney MD LAB BLOOD ORDERABLES Final Result [facility] [address] [place] [address] * (ABNORMAL) CBC w/diff (03/03/2025 6:02 PM EST) WBC Count 13.50(H) 3.70 - 10.30 10*3/uL LAB HEMATOLOGY METHOD 03/03/2025 6:20 PM EST [facility] RBC Count 4.82 3.90 - 5.20 10*6/uL LAB HEMATOLOGY METHOD 03/03/2025 6:20 PM EST [facility] HGB 13.7 11.2 - 15.7 g/dL LAB HEMATOLOGY METHOD 03/03/2025 6:20 PM EST [facility] HCT 41.8 34.0 - 45.0 % LAB HEMATOLOGY METHOD 03/03/2025 6:20 PM EST [facility] Platelet Count 305 155 - 369 10*3/uL LAB HEMATOLOGY METHOD 03/03/2025 6:20 PM EST [facility] MCV 87 79 - 98 fL LAB HEMATOLOGY METHOD 03/03/2025 6:20 PM EST [facility] MCH 28.4 26.0 - 32.0 pg LAB HEMATOLOGY METHOD 03/03/2025 6:20 PM EST [facility] MCHC 32.8 30.7 - 35.5 g/dL LAB HEMATOLOGY METHOD 03/03/2025 6:20 PM EST [facility] RDW 13.1 11.5 - 14.5 % LAB HEMATOLOGY METHOD 03/03/2025 6:20 PM EST [facility] MPV 10.5 8.8 - 12.5 fL LAB HEMATOLOGY METHOD 03/03/2025 6:20 PM EST [facility] nRBC 0.0 <=0.0 per 100 WBCs LAB HEMATOLOGY METHOD 03/03/2025 6:20 PM EST [facility] Differential Type Automated LAB HEMATOLOGY METHOD 03/03/2025 6:20 PM EST [facility] Neutrophils % 68 % LAB HEMATOLOGY METHOD 03/03/2025 6:20 PM EST [facility] Lymphocytes % 24 % LAB HEMATOLOGY METHOD 03/03/2025 6:20 PM EST [facility] Monocytes % 5 % LAB HEMATOLOGY METHOD 03/03/2025 6:20 PM EST [facility] Eosinophils % 1 % LAB HEMATOLOGY METHOD 03/03/2025 6:20 PM EST [facility] Basophils % 1 % LAB HEMATOLOGY METHOD 03/03/2025 6:20 PM EST [facility] Immature Granulocytes % 1 % LAB HEMATOLOGY METHOD 03/03/2025 6:20 PM EST [facility] Neutrophils Absolute 9.21(H) 1.60 - 6.10 10*3/uL LAB HEMATOLOGY METHOD 03/03/2025 6:20 PM EST [facility] Lymphocytes Absolute 3.27 1.20 - 3.90 10*3/uL LAB HEMATOLOGY METHOD 03/03/2025 6:20 PM EST [facility] Monocytes Absolute 0.69 0.30 - 0.90 10*3/uL LAB HEMATOLOGY METHOD 03/03/2025 6:20 PM EST [facility] Eosinophils Absolute 0.16 0.00 - 0.50 10*3/uL LAB HEMATOLOGY METHOD 03/03/2025 6:20 PM EST [facility] Basophils Absolute 0.09 0.00 - 0.10 10*3/uL LAB HEMATOLOGY METHOD 03/03/2025 6:20 PM EST [facility] Immature Granulocytes Absolute 0.08(H) 0.00 - 0.06 10*3/uL LAB HEMATOLOGY METHOD 03/03/2025 6:20 PM EST [facility] Blood Venous blood specimen / Unknown Venipuncture / Unknown 03/03/2025 6:02 PM EST 03/03/2025 6:13 PM EST [facility] - 03/03/2025 6:20 PM EST Therapeutic decision making should be based on absolute values, rather than percentages. us Phillip Carney MD LAB BLOOD ORDERABLES Final Result [facility] [address] [place] [address] * EKG now - STAT (adult) (03/03/2025 5:31 PM EST) EKG DIAGNOSIS CLASS Borderline Abnormal MUSE ECG Ventricular Rate 59 BPM MUSE ECG Atrial Rate 59 BPM MUSE ECG AK Interval 136 ms MUSE ECG QRSD Interval 78 ms MUSE ECG QT Interval 418 ms MUSE ECG QTC Interval 413 ms MUSE ECG P [place] -11 degrees MUSE ECG R [place] 2 degrees MUSE ECG T Wave [place] 8 degrees MUSE ECG Diagnosis Sinus bradycardia with sinus arrhythmia MUSE ECG Diagnosis Low voltage QRS MUSE ECG Diagnosis Borderline ECG MUSE ECG Diagnosis MUSE ECG Diagnosis Confirmed by Ash Ordonez ([id number]) on 03/04/2025 12:38:28 PM MUSE ECG 03/03/2025 5:31 PM EST 03/04/2025 12:38 PM EST us Phillip Carney MD ECG ORDERABLES Final Resu lt MUSE ECG * POCT glucose meter (03/03/2025 4:16 PM EST) POCT Glucose 90 74 - 99 mg/dL 03/03/2025 4:24 PM EST [facility] Comment:Accuracy of a glucos e result obtained from a capillary whole blood specimen relies upon adequate, non-compromised capillary blood flow. If the capillary glucose result is not consistent with the patient's clinical signs and symptoms, glucose testing should be repeated with either an arterial or venous sample on the glucometer or sent to the main labortory for testing. Comment 03/03/2025 4:24 PM EST [facility] Health Plan Specialist ID Janneth Gutierrez 03/03/2025 4:24 PM EST [facility] Device ID [id number] 03/03/2025 4:24 PM EST [facility] Specimen Type POC Capillary 03/03/2025 4:24 PM EST [facility] Blood Capillary blood specimen / Unknown 03/03/2025 4:16 PM EST 03/03/2025 4:24 PM EST us Generic Provider Poct LAB POINT OF CARE TEST DOCKED DEVICE UNSOLICITED RESULTS Final Result [facility] [address] [place] [address] documented in this encounter Visit Diagnoses Diagnosis Acute encephalopathy- Primary Encounter for medical assessment Altered mental status, unspecified altered mental status type documented in this encounter Admitting Diagnoses Diagnosis Acute encephalopathy documented in this encounter Active and Recently Administered Medications Care Teams Inhalation Therapist Relationship Specialty Start Date End Date Pcp, Shannan [address] [place] [address] PCP - General Family Medicine 03/03/25 documented as of this encounter
[2025-03-08] VITALS (24 sets, daily range): BP systolic 99–121; BP diastolic 57–78; PULSE 60–98; RESP 16–20; TEMP 37; O2SAT 95–99; BMI 40.7; BMI 39.1
--- NOTE | 2025-03-08 15:10 | HMH.EDGENADL ---
Discharge Plan Disposition Patient Disposition: Admitted Condition: Fair Prescriptions Prescriptions: No Action levetiracetam 1,000 mg tablet 1,000 mg PO BID sucralfate 1 gram tablet 1 g PO ACHS cyanocobalamin (vitamin B-12) 1,000 mcg tablet 1,000 mcg PO DAILY hydroxyzine HCl 50 mg tablet 50 mg PO DAILY Patient Comments: TAKE 1 TABLET BY MOUTH DAILY ferrous sulfate [FeroSul] 325 mg (65 mg iron) tablet 325 mg PO DAILY topiramate 200 mg tablet 200 mg PO BID Patient Comments: TAKE 1 TABLET BY MOUTH TWICE DAILY omeprazole 40 mg Capsule,Delayed Release(Dr/Ec) 40 mg PO DAILY famotidine [Pepcid] 20 mg Tablet 20 mg PO BID amoxicillin-pot clavulanate 875-125 mg tablet 1 tab PO BID 5 Days Qty: 10 0RF Referrals Follow up/Referrals: Provider,Referral, [Primary Care Provider, Medical] - See instructions Clinical Impressions Clinical Impression: Altered mental status Instructions Patient Instructions: DI for Altered Mental Status Print Language Print Language: Italian Discharge ED Provider: Edda Rivas General Adult HPI General Chief complaint: Altered Mental Status Stated complaint: AMS Time Seen by Provider: 03/08/25 15:10 History of Present Illness HPI narrative: Patient is a 39-year-old female with a past medical history of seizures who presents to the emergency department from [facility] for aggressive behavior. Per [facility], patient was acting abnormally however per EMS, patient has been calm and cooperative. In the emergency department, patient is alert and oriented however patient will intermittently answer some questions but not others. Patient will not answer if she has chest pain or shortness of breath or abdominal pain but is able to state the year the month and her name. Patient was able to state that she does not think she had a seizure today. Patient states that she has seizures intermittently. Patient was unable to answer whether she took her medications today or not. After further discussion with [facility] aug[facility], they state that the patient has not been herself for the last couple of days. They state that typically she is very interactive and talkative and her speech has been much slower than usual. They state that she has been on a one-to-one watch at [facility] for the last day. They state that she has not seen a psychiatrist does not have any significant psychiatric medical problems. Patient does have history of seizures has been taking her medications as prescribed. They state that they have not seen any seizure-like activity. They state that she has not had any other symptoms or illnesses. They state that patient has been more aggressive than usual and is not her usual behavior. Related Data Home Medications ?Medication ?Instructions ?Recorded ?Confirmed cyanocobalamin (vitamin B-12) 1,000 mcg PO DAILY 03/02/24 05/26/24 1,000 mcg tablet ferrous sulfate 325 mg (65 mg 325 mg PO DAILY 03/02/24 05/26/24 iron) tablet (FeroSul) hydroxyzine HCl 50 mg tablet 50 mg PO DAILY 03/02/24 05/26/24 levetiracetam 1,000 mg tablet 1,000 mg PO BID 03/02/24 05/26/24 sucralfate 1 gram tablet 1 g PO ACHS 03/02/24 05/26/24 topiramate 200 mg tablet 200 mg PO BID 03/02/24 05/26/24 famotidine 20 mg tablet (Pepcid) 20 mg PO BID 05/01/24 05/26/24 omeprazole 40 mg capsule,delayed 40 mg PO DAILY 05/01/24 05/26/24 release Previous Rx's ?Medication ?Instructions ?Recorded amoxicillin 875 mg-potassium 1 tab PO BID 5 days #10 tabs 05/04/24 clavulanate 125 mg tablet Allergies Allergy/AdvReac Type Severity Reaction Status Date / Time cyclobenzaprine (From Allergy Unknown Verified 05/26/24 10:47 Flexeril) allergy reaction prednisone Allergy Unknown Verified 05/26/24 10:47 allergy reaction [facility] Disclaimer: The information contained in this section may have been updated after the patient was seen, as this information can be updated by other users. Medical History Cholecystitis ADHD Depression Anxiety GERD (gastroesophageal reflux disease) Seizure disorder Surgical History History of tonsillectomy History of Family History Other Alcohol abuse Family history of cancer Social History Smoking Status: Unknown if ever smoked alcohol intake: former substance use type: denies use current occupational status: unemployed Travel in the last 8 weeks?: None Have you lived/traveled outside US in past 30 days?: No Contact w/someone who lives/traveled outside US past 30 days?: No Exposure to someone with infectious disease in past 14 days?: No Do you have a fever (greater than 100.4 F or 38 C)?: No Have you tested positive for COVID-19?: No Exposed to someone with COVID-19 in past 14 days?: No Do you have a sore throat?: No Do you have a cough?: No Do you have any weakness?: No Do you have any diarrhea?: No Are you experiencing any unusual bleeding?: No Do you have any muscle aches/pain?: No Do you have any abdominal pain?: No Are you experiencing loss of taste or smell?: No Other Medical History Have you received the Flu Vaccine for this season: No Have you received the Pneumonia Vaccine: No ROS Obtained: Yes All systems reviewed & no additional complaints except as documented and Yes Systems reviewed as appropriate & no additional complaints except as documented Physical Exam General General appearance: alert, in no apparent distress and other (very unkept, poor hygiene ) Head Head exam: atraumatic, normocephalic and normal inspection Eye Eye exam: Present normal appearance, PERRL and EOMI; Absent scleral icterus ENT ENT exam: Present normal exam and normal external ear exam Neck Neck exam: Present normal inspection and full ROM Chest Chest inspection: Present normal inspection and symmetric chest wall rise Respiratory Respiratory exam: Present normal lung sounds bilaterally; Absent respiratory distress or wheezes Cardiovascular Cardiovascular exam: Present regular rate, normal rhythm and normal heart sounds Abdominal Exam Abdominal exam: Present soft and distention; Absent tenderness, guarding or rebound Extremities Exam Extremities exam: Present normal inspection and full ROM Back Exam Back exam: Present normal inspection and full ROM Neurological Exam Neurological exam: Present alert, oriented X3, CN II-XII intact, normal gait and other (very slow to respond, 5/5 strength in the BUE and BLE, sensation intact, no focal deficits) Psychiatric Psychiatric exam: Present normal affect and normal mood; Absent agitated, manic, homicidal ideation or suicidal ideation Skin Skin exam: Present warm and dry Medical Decision Making Medical Records Screening: Per USPSTF and CDC recommendations, given the prevalence of disease in our region, it is our hospital?s policy to screen for HIV and viral Hepatitis for all patients aged 18 and over and those with ongoing risk factors. Lloyd Inquiry Pt receiving controlled substance: No Vital Signs: 03/08/25 15:07 03/08/25 15:10 03/08/25 15:15 Temperature 98.6 F Temperature Source Oral Pulse Rate 81 76 Pulse Rate [Right Brachial] 71 Respiratory Rate 16 Blood Pressure Blood Pressure [Right Radial Artery] 115/78 Blood Pressure Mean Blood Pressure Mean [Right Radial Artery] 90 Blood Pressure Source [Right Radial Artery] Automatic Cuff Blood Pressure Position [Right Radial Artery] Sitting 02 Sat by Pulse Oximetry 98 97 97 Oxygen Delivery Method Room Air 03/08/25 15:30 03/08/25 15:30 03/08/25 15:45 Temperature Temperature Source Pulse Rate 62 71 Pulse Rate [Right Brachial] Respiratory Rate Blood Pressure 101/57 L Blood Pressure [Right Radial Artery] Blood Pressure Mean 71 Blood Pressure Mean [Right Radial Artery] Blood Pressure Source [Right Radial Artery] Blood Pressure Position [Right Radial Artery] 02 Sat by Pulse Oximetry 97 96 Oxygen Delivery Method 03/08/25 16:18 03/08/25 16:30 03/08/25 16:30 Temperature Temperature Source Pulse Rate 98 H 77 Pulse Rate [Right Brachial] Respiratory Rate Blood Pressure 99/66 L 113/74 Blood Pressure [Right Radial Artery] Blood Pressure Mean 83 Blood Pressure Mean [Right Radial Artery] Blood Pressure Source [Right Radial Artery] Blood Pressure Position [Right Radial Artery] 02 Sat by Pulse Oximetry 96 97 Oxygen Delivery Method 03/08/25 16:49 03/08/25 17:02 03/08/25 17:15 Temperature Temperature Source Pulse Rate 74 60 70 Pulse Rate [Right Brachial] Respiratory Rate Blood Pressure Blood Pressure [Right Radial Artery] Blood Pressure Mean Blood Pressure Mean [Right Radial Artery] Blood Pressure Source [Right Radial Artery] Blood Pressure Position [Right Radial Artery] 02 Sat by Pulse Oximetry 99 99 97 Oxygen Delivery Method 03/08/25 17:29 03/08/25 17:30 03/08/25 17:31 Temperature Temperature Source Pulse Rate 73 80 Pulse Rate [Right Brachial] Respiratory Rate Blood Pressure 110/71 Blood Pressure [Right Radial Artery] Blood Pressure Mean 77 Blood Pressure Mean [Right Radial Artery] Blood Pressure Source [Right Radial Artery] Blood Pressure Position [Right Radial Artery] 02 Sat by Pulse Oximetry 95 98 Oxygen Delivery Method 03/08/25 17:45 03/08/25 18:00 03/08/25 19:00 Temperature Temperature Source Pulse Rate 77 73 Pulse Rate [Right Brachial] Respiratory Rate Blood Pressure 102/61 L 113/70 Blood Pressure [Right Radial Artery] Blood Pressure Mean 79 Blood Pressure Mean [Right Radial Artery] Blood Pressure Source [Right Radial Artery] Blood Pressure Position [Right Radial Artery] 02 Sat by Pulse Oximetry 98 97 Oxygen Delivery Method 03/08/25 19:00 03/08/25 19:15 Temperature Temperature Source Pulse Rate 75 74 Pulse Rate [Right Brachial] Respiratory Rate Blood Pressure Blood Pressure [Right Radial Artery] Blood Pressure Mean Blood Pressure Mean [Right Radial Artery] Blood Pressure Source [Right Radial Artery] Blood Pressure Position [Right Radial Artery] 02 Sat by Pulse Oximetry 99 99 Oxygen Delivery Method Room Air Room Air Lab Data Lab results reviewed: Yes I reviewed the patient's lab results. Lab Results 03/08/25 15:20: WBC 10.2, RBC 4.62, Hgb 13.3, Hct 40.2, MCV 87.0, MCH 28.8, MCHC 33.1, RDW 13.2, Plt Count 281, MPV 10.5 H, Neut % (Auto) 68.4, Lymph % (Auto) 23.8, Allen % (Auto) 5.3, Eos % (Auto) 1.1, Baso % (Auto) 0.8, Neut # (Auto) 7.0, Lymph # (Auto) 2.4, Allen # (Auto) 0.5, Eos # (Auto) 0.1, Baso # (Auto) 0.1, VBG pH 7.33, VBG pCO2 40.3, VBG pO2 64.7 H, VBG HCO3 21.0 L, VBG Total CO2 22.2 L, VBG O2 Saturation 92.8 H, VBG Base Excess -4.9 L, VBG Lactic Acid 1.2, Sodium 137, Potassium 3.7, Chloride 109 H, Carbon Dioxide 23, Anion Gap 8.7, BUN 11, Creatinine 0.80, Estimated Creat Clear 159, Estimated GFR 81, Est GFR ( Amer) 98, Glucose 92, Calcium 9.3, Total Bilirubin 0.5, AST 31, ALT 27, Alkaline Phosphatase 88, Total Protein 7.2, Albumin 4.0, Globulin 3.2, Albumin/Globulin Ratio 1.3, TSH 1.24, Free T4 1.17, Serum HCG, Qual Negative, Plasma/Serum Alcohol < 10 03/08/25 17:00: Urine Color Yellow, Urine Appearance Sl cloudy, Urine pH 5.5, Ur Specific Weldon >= 1.030, Urine Protein Negative, Urine Glucose (UA) Negative, Urine Ketones Trace, Urine Blood Negative, Urine Nitrate Negative, Urine Bilirubin Negative, Urine Urobilinogen 1.0, Ur Leukocyte Esterase Trace, Urine RBC 5-10, Urine WBC 20-50, Ur Squamous Epith Cells 20-50, Amorphous Sediment 1+, Urine Bacteria 3+, Urine Mucus 2+, Urine Opiates Screen Negative, Urine Methadone Screen Negative, Ur Barbituates Screen Negative, Ur Phencyclidine Scrn Negative, Ur Amphetamines Screen Negative, U Benzodiazepines Scrn Negative, Urine Cocaine Screen Negative, U Marijuana (THC) Screen Negative 03/08/25 15:20 03/08/25 15:20 Orders (Tests/Meds): ED MEDICATIONS Generic Name Dose Route Start Last Admin Trade Name Freq PRN Reason Stop Dose Admin Acetaminophen 650 mg 03/08/25 20:01 Acetaminophen 325mg Tab PO 04/07/25 20:00 Q4HP PRN Fever or Mild Pain (1-3) Enoxaparin Sodium 40 mg 03/09/25 09:00 Enoxaparin 40mg/0.4ml Syringe SUBCUT 04/08/25 08:59 DAILY ROLAND Discontinued Medications Generic Name Dose Route Start Last Admin Trade Name Freq PRN Reason Stop Dose Admin Levetiracetam 1,000 mg/ Sodium 110 mls @ 220 mls/hr 03/08/25 15:36 03/08/25 17:11 Chloride IV 03/08/25 15:37 Infused ONCE ONE Infusion Midazolam HCl 1 mg 03/08/25 17:52 03/08/25 18:05 Midazolam 2mg/2ml Vial IV 03/08/25 17:53 1 mg ONCE ONE Administration ORDERS Category Date Time Status CT head/brain wo con Stat Cat Scan 03/08/25 18:37 Completed CBC w/Auto Diff [Complete Blood Count Auto Diff] Stat Lab 03/08/25 15:20 Completed CMP [Comprehensive Metabolic Panel] Stat Lab 03/08/25 15:20 Completed Complete Blood Count Auto Diff AMLAB Lab 03/09/25 06:00 Ordered Comprehensive Metabolic Panel AMLAB Lab 03/09/25 06:00 Ordered Ethyl Alcohol Stat Lab 03/08/25 15:20 Completed Free T4 (Free Thyroxine) Stat Lab 03/08/25 15:20 Completed HCG Qualitative, Serum Stat Lab 03/08/25 15:20 Completed TSH [Thyroid Stimulating Hormone] Stat Lab 03/08/25 15:20 Completed UA [Urinalysis and Microscopic] Stat Lab 03/08/25 17:00 Completed UDS [Drug Screen,Urine] Stat Lab 03/08/25 17:00 Completed Urine Culture Stat Micro 03/08/25 17:00 Received VBG [Venous Blood Gas] Stat RT 03/08/25 15:20 Completed Medical Decision Narrative: Patient is a 39-year-old female with a past medical history of seizures on topiramate and Keppra who presented to the emergency department with aggressive and change of behavior from [facility]. On arrival, patient was hemodynamically stable with unremarkable vital signs. Differential includes but not limited to: Postictal state, intracranial pathology, catatonia, medication side effect, amongst others Patient's labs were reviewed and interpreted by myself: CBC showed no leukocytosis, hemoglobin was stable. VBG was unremarkable no elevated lactate. CMP was unremarkable. test was negative. Urine was grossly contaminated but did have bacteria squamous cells white blood cells trace leukocytes no nitrites. Urine drug screen was negative. Patient was given Keppra here in the emergency department given concern for possible noncompliance or seizure prior to arrival. Here in the emergency department, patient continued to be very slow to respond although patient is alert and oriented. I discussed with [facility] and they state that this is abnormal for her behavior. They state that she is typically very talkative and she has been on a one-to-one watch at their facility given this change in behavior. Patient was given a dose of Versed given her behavior that looks slightly like catatonia to see if she had any response. Patient still remained to be about the same therefore CT head was obtained to further evaluate. CT head was reviewed and interpreted by myself and per radiology there was no acute intracranial findings. After the dose of Versed, patient continued to be the same without any improvement in her change of mental status. At this time, I discussed the case with hospital medicine who ultimately admitted the patient for further evaluation and workup. Critical Care Critical Care Time Critical Care Time: No
--- OUTSIDE RECORDS SUMMARY | 2025-03-08 15:17 | XMS_ITS | Encounter Summary ---
Author Organization [facility] Address [address] [place] [address] Care Team Providers Care Relay Dispatcher Name Role Phone Pcp, No Primary Care Provider Unavailabl e Encounter Details Date Type Department Care Team (Latest Contact Info) Description 03/03/2025 Travel Social History Tobacco Use Types Packs/Day Years [...] on file documented as of this encounter Functional Status * Calculated C-SSRS Risk Score (Lifetime/Recent) Answer Date of Assessment Author No Risk Indicated 03/03/2025 4:47 PM Mercy Rich RN * Question Answer Date of Assessment Author 1. Wish to be (Past 1 Month) No 025 4:47 PM Mercy Rich, RN 2. Non-Specific Active Suici pilar Thoughts (Past 1 Month) No 03/03/2025 4:47 PM Madeline Rich, RN 6. Suicidal Behavior (Lifetime) No 4:47 PM Mercy Rich, RN documented as of this encounter Plan of Treatment Not on file documented as of this encounter Visit Diagnoses Not on filedocumented in this encounter Care Teams Relay Dispatcher Relationship Specialty Start Date End Date Pcp, No [address] [place] [address] PCP - General Family Medicine 03/03/25 documented as of this encounter
--- OUTSIDE RECORDS SUMMARY | 2025-03-08 15:17 | XMS_ITS | Clinical Summary ---
Author Organization [facility] Address [address] [place] [id number] Care Team Providers Care Lower In Supervisor Name Role Phone Pcp, No Primary Care Provider Unavailabl e Active Problems Problem Noted Date Diagnosed Date Acute encephalopathy 03/03/2025 Encounters Date Type Department Care Team Description 03/03/2025 4:05 PM EST - 03/03/2025 11:51 PM EST Emergency [facility] Emergency Department [address] [place] [address] Phillip Carney MD Miguel, Mitchell A, MD Encounter for medical assessment (Primary Dx); Altered mental status, unspecified altered mental status type Discharge Disposition: Care Home Facility 03/03/2025 Travel from Last 3 Months Immunizations Immunization Administration Dates Next Due Influenza, injectable, quadrivalent, preservativ e free 03/13/2017 Family History Medical History Relation Name Comments Stroke Other 1 Heart disease Other 2 Throat cancer Other 3 Relation Name Status Comments Other 1 Other 2 Other 3 Social History Tobacco Use Types Packs/Day Years Used Date Smoking Tobacco: Former Alcohol Use Standard Drinks/Week Comments No 0 (1 standard drink = 0.6 oz pur e alcohol) Comments Unknown Sex and Gender Information Value Date Recorded Sex Assigned at Not on file Legal Sex Female 5:56 PM EDT Gender Identity Not on file Sexual Orientation Not on file Last Filed Vital Signs Vital Sign Reading Time Taken Comments Blood Pressure 124/78 03/03/2025 10:30 PM EST Pulse 89 03/03/2025 10:30 PM EST Temperature 36.8 C (98.2 F) 03/03/2025 10:30 PM EST Respiratory Rate 15 03/03/2025 10:30 PM EST Oxygen Saturation 94% 03/03/2025 10:30 PM EST Inhaled Oxygen Concentration - - Weight 110 kg (242 lb 8.1 oz) 03/03/2025 4:24 PM EST Height 162.6 cm (5' 4 ) 02/18/2017 2:40 PM EDT Body Mass Index 41.63 02/18/2017 2:40 PM EDT Plan of Treatment Health Maintenance Due Date Last Done Comments [facility]-Depression Screening 1987 [facility]-Infant/Child/Adol SDOH Screenings 1987 [facility]-Obesity Intervention 12/21/1993 [facility]-Varicella Vaccines (1 of 2 - 13+ 2-dose series) 12/21/2000 [facility]- SDOH Screenings 12/21/2005 [facility]-Adult SDOH Screenings 12/21/2005 [facility]-Hepatitis B Vaccines (2 of 3 - 19+ 3-dose series) 02/01/2010 01/04/2010 HPV Vaccines (1 - 3-dose SCDM series) 12/21/2014 [facility]-HPV/Cotest 12/21/2017 [facility]-Cervical Cancer Screening 05/09/2022 [facility]-Pap Smear 05/09/2022 05/09/2019 [id number] Vaccine (1 - season) 2024 [facility]-Influenza Vaccine (#1) 2024 03/13/2017, [facility]-DTaP,Tdap,and Td Vaccines (5 - Td or Tdap) 01/22/2029 01/22/2019, 02/07/2011, 11/26/2010, Additional history exists [facility]-Zoster Vaccines (1 of 2) 12/21/2037 [facility]-HIV Screening Completed 03/03/2025 [facility]-Hepatitis C Screening Completed 03/03/2025 [facility]-HIB Vaccines Aged Out No longer e ligible based on patient's age to complete this topic [facility]-Hepatitis A Vaccines Aged Out No longer eligible based on patient's age to complete this topic [facility]-IPV Vaccines Aged Out No longer e ligible based on patient's age to complete this topic [facility]-Pneumococcal Vaccine: Pediatrics (0 to 5 Years) and At-Risk Patients (6 to 49 Years) Aged Out No longer eligible based on patient's age to complete this topic [facility]-Rotavirus Vaccines Aged Out No lo nger eligible based on patient's age to complete this topic Procedures Procedure Name Priority Date/Time Associated Diagnosis Comments URINALYSIS MICROSCOPIC FOR UA REFLEX STAT 03/03/2025 7:47 PM EST URINE WHITE PANEL STAT 03/03/2025 7:47 PM EST URINALYSIS WITH REFLEX MICROSCOPIC STAT 03/03/2025 7:47 PM EST DRUG ABUSE SCREEN, URINE STAT 03/03/2025 7:47 PM EST URINALYSIS WITH REFLEX MICROSCOPIC AND CULTURE STAT 03/03/2025 7:47 PM EST ED HIV 1/2 ANTIBODY/ANTIGEN SCREEN WITH REFLEX TO HIV I/II DIFFERENTIATION STAT 03/03/2025 6:02 PM EST ED PROTOCOL HIV 1/2 ANTIBODY/ANTIGEN SCREEN W/REFLEX TO HIV 1/2 ANTIBODY DIFFERENTIATION STAT 03/03/2025 6:02 PM EST HEPATITIS C ANTIBODY - ED W/REFLEX TO HCV QUANT PCR STAT 03/03/2025 6:02 PM EST LEVETIRACETAM LEVEL STAT 03/03/2025 6 :02 PM EST FREE T4, PLASMA STAT 03/03/2025 6:02 PM EST TSH STAT 03/03/2025 6:02 PM EST BLOOD GAS PANEL, VENOUS STAT 03/03/20 25 6:02 PM EST TEST QUALITATIVE PLASMA STAT 03/03/2025 6:02 PM EST MAGNESIUM, PLASMA STAT 03/03/2025 6:0 2 PM EST COMPREHENSIVE METABOLIC PANEL, PLASMA STAT 03/03/2025 6:02 PM EST CBC WITH AUTO DIFFERENTIAL STAT 03/03/2025 6:02 PM EST ECG ADULT STAT 03/03/2025 5:31 PM EST POCT GLUCOSE METER UNSOLICITED RESULTS Routine 03/03/2025 4:16 PM EST from Last 3 Months Results * Urine White Panel (03/03/2025 7:47 PM EST) Extra Reflex urine culture not indicated 03/03/2025 9:[address] [facility] Urine Urine specimen obtained by clean catch procedure / Unknown Non-blood Collection / Unknown 03/03/2025 7:47 PM EST 03/03/2025 7:58 PM EST Phillip Carney MD LAB URINE ORDERABLES Final Result [facility] [address] [place] [address] * Urinalysis Microscopic Examination (03/03/2025 7:47 PM EST) Urine Urine specimen obtained by clean catch procedure / Unknown Non-blood Collection / Unknown 03/03/2025 7:47 PM EST 03/03/2025 7:52 PM EST Phillip Carney MD LAB URINE ORDERABLES Final Result [facility] [address] [place] [address] * Drug abuse screen (03/03/2025 7:47 PM EST) Amphetamine Screen Urine Negative Cutoff: 500 ng/mL 03/03/2025 8:[address] [facility] Benzodiazepines Screen Urine Negative Cutoff: 200 ng/mL 03/03/2025 8:[address] [facility] Cannabinoid Screen Urine Negative Cutoff: 50 ng/mL 03/03/2025 8:[address] [facility] Cocaine Screen Urine Negative Cutoff: 300 ng/mL 03/03/2025 8:[address] [facility] Barbiturate Screen Urine Negative Cutoff: 200 ng/mL 03/03/2025 8:[address] [facility] Opiate Screen Urine Negative Cutoff: 300 ng/mL 03/03/2025 8:[address] [facility] Methadone Screen Urine Negative Cutoff: 300 ng/mL 03/03/2025 8:[address] [facility] Buprenorphine Screen Urine Negative Cutoff: 10 ng/mL 03/03/2025 8:[address] [facility] Fentanyl Screen Urine Negative Cutoff: 1 ng/mL 03/03/2025 8:[address] [facility] Oxycodone Screen Urine Negative Cutoff: 100 ng/mL 03/03/2025 8:[address] [facility] Urine Urine specimen obtained by clean catch procedure / Unknown Non-blood Collection / Unknown 03/03/2025 7:47 PM EST 03/03/2025 7:52 PM EST us Phillip Carney MD LAB URINE ORDERABLES Final Result [facility] [address] [place] [address] * (ABNORMAL) Urinalysis with reflex microscopic (Culture NOT Included) (03/03/2025 7:47 PM EST) Color, Urine Yellow LAB URINALYSIS - AUTOMATED METHOD 03/03/2025 8:25 PM [facility] Clarity, Urine Clear LAB URINALYSIS - AUTOMATED METHOD 03/03/2025 8:25 PM [facility] Spec [place], Urine 1.014 1.005 - 1.030 LAB URINALYSIS - AUTOMATED METHOD 03/03/2025 8:25 PM [facility] pH, Urine 7.5 5.0 - 8.0 LAB URINALYSIS - AUTOMATED METHOD 03/03/2025 8:[address] [facility] Protein, Urine Negative Negative mg/dL LAB URINALYSIS - AUTOMATED METHOD 03/03/2025 8:25 PM [facility] Glucose, Urine Negative Negative mg/dL LAB URINALYSIS - AUTOMATED METHOD 03/03/2025 8:25 PM [facility] Ketones, Urine Negative Negative mg/dL LAB URINALYSIS - AUTOMATED METHOD 03/03/2025 8:25 PM [facility] Blood, Urine Negative Negative LAB URINALYSIS - AUTOMATED METHOD 03/03/2025 8:25 PM [facility] Bilirubin, Urine Negative Negative LAB URINALYSIS - AUTOMATED METHOD 03/03/2025 8:[address] [facility] Urobilinogen, Urine 1.0 0.2 to 1.0 mg/dL LAB URINALYSIS - AUTOMATED METHOD 03/03/2025 8:[address] [facility] Leukocytes, Urine Small(A) Negative LAB URINALYSIS - AUTOMATED METHOD 03/03/2025 8:[address] [facility] Nitrite, Urine Negative Negative LAB URINALYSIS - AUTOMATED METHOD 03/03/2025 8:[address] [facility] RBC, Urine 3 0 to 3 /HPF LAB URINALYSIS - AUTOMATED METHOD 03/03/2025 8:[address] [facility] Comment:This result was prev iously suppressed from the chart. WBC, Urine 0 - 5 0 to 5 /HPF LAB URINALYSIS - AUTOMATED METHOD 03/03/2025 8:[address] [facility] Comment:This result was prev iously suppressed from the chart. Squamous Epithelial Cells 6 - 10(A) 0 to 5 /HPF LAB URINALYSIS - AUTOMATED METHOD 03/03/2025 8:[address] [facility] Comment:This result was prev iously suppressed from the chart. Hyaline Casts 0 - 2 0 to 5 /LPF LAB URINALYSIS - AUTOMATED METHOD 03/03/2025 8:[address] [facility] Comment:This result was prev iously suppressed from the chart. Bacteria, Urine Present Negative LAB URINALYSIS - AUTOMATED METHOD 03/03/2025 8:[address] [facility] Comment:This result was prev iously suppressed from the chart. Urine Urine specimen obtained by clean catch procedure / Unknown Non-blood Collection / Unknown 03/03/2025 7:47 PM EST 03/03/2025 7:52 PM EST us Phillip Carney MD LAB URINE ORDERABLES Final Result [facility] [address] [place] [address] * ED HIV 1/2 Antibody/Antigen Screen w/Reflex to HIV 1/2 Differentiation (03/03/2025 6:02 PM EST) Pathologist [facility] HIV 1 & 2 Antibody/Antigen Screen Non Reactive Non Reactive 03/03/2025 7:[address] [facility] Comment:Screening for HIV 1 & 2 antibodies, and P24 antigen is NONREACTIVE. No confirmatory testing is required. Blood Venous blood specimen / Unknown Venipuncture / Unknown 03/03/2025 6:02 PM EST 03/03/2025 6:22 PM EST Phillip Carney MD LAB BLOOD ORDERABLES Final Result Performing Organization Address City/[facility]/ZIP Co de Phone Number [facility] [address] [place] [address] * Hepatitis C Antibody - ED (03/03/2025 6:02 PM EST) Pathologist [facility] Hepatitis C Antibody Negative Negative 03/03/2025 7:04 PM EST [facility] Blood Venous blood specimen / Unknown Venipuncture / Unknown 03/03/2025 6:02 PM EST 03/03/2025 6:22 PM EST Phillip Carney MD LAB BLOOD ORDERABLES Final Result Performing Organization Address City/[facility]/ZIP Co de Phone Number [facility] [address] [place] [address] * Levetiracetam (Keppra) (03/03/2025 6:02 PM EST) Pathologist [facility] Levetiracetam (Keppra) 15.9 12.0 - 46.0 ug/mL 03/08/2025 5:[address] [facility] Blood Venous blood specimen / Unknown Venipuncture / Unknown 03/03/2025 6:02 PM EST 03/03/2025 6:[address] [facility] - 03/08/2025 5:26 AM EST Test performed by LC-MS/MS at the [facility]. This test was developed and its performance characteristics determined by [facility]. It has not been cleared or approved by the FDA. The laboratory is regulated under CLIA as qualified to perform high-complexity testing. This test is used for clinical purposes. us Phillip Carney MD LAB BLOOD ORDERABLES Final Result [facility] [address] [place] [address] * (ABNORMAL) CBC w/diff (03/03/2025 6:02 PM EST) WBC Count 13.50(H) 3.70 - 10.30 10*3/uL LAB HEMATOLOGY METHOD 03/03/2025 6:[address] [facility] RBC Count 4.82 3.90 - 5.20 10*6/uL LAB HEMATOLOGY METHOD 03/03/2025 6:[address] [facility] HGB 13.7 11.2 - 15.7 g/dL LAB HEMATOLOGY METHOD 03/03/2025 6:[address] [facility] HCT 41.8 34.0 - 45.0 % LAB HEMATOLOGY METHOD 03/03/2025 6:[address] [facility] Platelet Count 305 155 - 369 10*3/uL LAB HEMATOLOGY METHOD 03/03/2025 6:[address] [facility] MCV 87 79 - 98 fL LAB HEMATOLOGY METHOD 03/03/2025 6:[address] [facility] MCH 28.4 26.0 - 32.0 pg LAB HEMATOLOGY METHOD 03/03/2025 6:[address] [facility] MCHC 32.8 30.7 - 35.5 g/dL LAB HEMATOLOGY METHOD 03/03/2025 6:[address] [facility] RDW 13.1 11.5 - 14.5 % LAB HEMATOLOGY METHOD 03/03/2025 6:[address] [facility] MPV 10.5 8.8 - 12.5 fL LAB HEMATOLOGY METHOD 03/03/2025 6:[address] [facility] nRBC 0.0 <=0.0 per 100 WBCs LAB HEMATOLOGY METHOD 03/03/2025 6:[address] [facility] Differential Type Automated LAB HEMATOLOGY METHOD 03/03/2025 6:[address] [facility] Neutrophils % 68 % LAB HEMATOLOGY METHOD 03/03/2025 6:[address] [facility] Lymphocytes % 24 % LAB HEMATOLOGY METHOD 03/03/2025 6:[address] [facility] Monocytes % 5 % LAB HEMATOLOGY METHOD 03/03/2025 6:[address] [facility] Eosinophils % 1 % LAB HEMATOLOGY METHOD 03/03/2025 6:[address] [facility] Basophils % 1 % LAB HEMATOLOGY METHOD 03/03/2025 6:[address] [facility] Immature Granulocytes % 1 % LAB HEMATOLOGY METHOD 03/03/2025 6:[address] [facility] Neutrophils Absolute 9.21(H) 1.60 - 6.10 10*3/uL LAB HEMATOLOGY METHOD 03/03/2025 6:[address] [facility] Lymphocytes Absolute 3.27 1.20 - 3.90 10*3/uL LAB HEMATOLOGY METHOD 03/03/2025 6:[address] [facility] Monocytes Absolute 0.69 0.30 - 0.90 10*3/uL LAB HEMATOLOGY METHOD 03/03/2025 6:[address] [facility] Eosinophils Absolute 0.16 0.00 - 0.50 10*3/uL LAB HEMATOLOGY METHOD 03/03/2025 6:[address] [facility] Basophils Absolute 0.09 0.00 - 0.10 10*3/uL LAB HEMATOLOGY METHOD 03/03/2025 6:[address] [facility] Immature Granulocytes Absolute 0.08(H) 0.00 - 0.06 10*3/uL LAB HEMATOLOGY METHOD 03/03/2025 6:[address] [facility] Blood Venous blood specimen / Unknown Venipuncture / Unknown 03/03/2025 6:02 PM EST 03/03/2025 6:[address] [facility] - 03/03/2025 6:20 PM EST Therapeutic decision making should be based on absolute values, rather than percentages. us Phillip Carney MD LAB BLOOD ORDERABLES Final Result [facility] [address] [place] [address] * hCG qualitative (03/03/2025 6:02 PM EST) Test Negative Negative 03/03/2025 6:[address] [facility] Blood Venous blood specimen / Unknown Venipuncture / Unknown 03/03/2025 6:02 PM EST 03/03/2025 6:[address] [facility] - 03/03/2025 6:58 PM EST Reference Range: Males and non- females: Negative. Phillip Carney MD LAB BLOOD ORDERABLES Final Result Performing Organization Address City/[facility]/ZIP Co de Phone Number [facility] [address] [place] [address] * Thyroid Stimulating Hormone, Plasma (03/03/2025 6:02 PM EST) Thyroid Stimulating Hormone, Plasma 1.64 0.40 - 4.20 uIU/mL 03/03/2025 6:58 PM EST [facility] Blood Venous blood specimen / Unknown Venipuncture / Unknown 03/03/2025 6:02 PM EST 03/03/2025 6:13 PM EST Narrative [facility] - 03/03/2025 6:58 PM EST Trimester Specific Ranges TSH ( IU/mL) 1st Trimester 0.1 - 3.0 2nd Trimester 0.19 - 4.06 3rd Trimester 0.3 - 3.7 Phillip Carney MD LAB BLOOD ORDERABLES Final Result Performing Organization Address City/[facility] Co de Phone Number [facility] [address] [place] [address] * Free T4, Plasma (03/03/2025 6:02 PM EST) Free T4, Plasma 1.1 0.8 - 1.7 ng/dL 03/03/2025 6:[address] [facility] Blood Venous blood specimen / Unknown Venipuncture / Unknown 03/03/2025 6:02 PM EST 03/03/2025 6:[address] [facility] - 03/03/2025 6:58 PM EST Free T4 Trimester Specific Ranges 1st Trimester 0.9 - 1.50 ng/dL 2nd Trimester 0.7 - 1.40 ng/dL 3rd Trimester 0.7 - 1.24 ng/dL us Phillip Carney MD LAB BLOOD ORDERABLES Final Result Performing Organization Address City/[facility]/ZIP Co de Phone Number [facility] [address] [place] [address] * Magnesium (03/03/2025 6:02 PM EST) Magnesium, Plasma 1.9 1.9 - 2.4 mg/dL 03/03/2025 6:[address] [facility] Blood Venous blood specimen / Unknown Venipuncture / Unknown 03/03/2025 6:02 PM EST 03/03/2025 6:13 PM EST Phillip Carney MD LAB BLOOD ORDERABLES Final Result Performing Organization Address City/[facility]/ZIP Co de Phone Number [facility] [address] [place] [address] * (ABNORMAL) Blood gas panel, venous (03/03/2025 6:02 PM EST) pH, Venous 7.34 7.32 - 7.43 LAB HEMATOLOGY METHOD 03/03/2025 6:[address] [facility] pCO2, Venous 43 37 - 52 mmHg LAB HEMATOLOGY METHOD 03/03/2025 6:[address] [facility] pO2, Venous 23(L) 25 - 40 mmHg LAB HEMATOLOGY METHOD 03/03/2025 6:[address] [facility] SO2, Measured, Venous 40(L) 65 - 80 % LAB HEMATOLOGY METHOD 03/03/2025 6:[address] [facility] Base Excess, Venous -3.0(L) -2.0 - 3.0 mmol/L LAB HEMATOLOGY METHOD 03/03/2025 6:[address] [facility] Bicarbonate, Calculated, Venous 23 22 - 26 mmol/L LAB HEMATOLOGY METHOD 03/03/2025 6:[address] [facility] Hematocrit, Whole Blood 43.3 34.0 - 45.0 % LAB HEMATOLOGY METHOD 03/03/2025 6:[address] [facility] Sodium, Whole Blood 141 136 - 145 mmol/L LAB HEMATOLOGY METHOD 03/03/2025 6:[address] [facility] Potassium, Whole Blood 3.8 3.6 - 4.9 mmol/L LAB HEMATOLOGY METHOD 03/03/2025 6:[address] [facility] Chloride, Whole Blood 108(H) 97 - 107 mmol/L LAB HEMATOLOGY METHOD 03/03/2025 6:[address] [facility] Glucose, Whole Blood 85 74 - 99 mg/dL LAB HEMATOLOGY METHOD 03/03/2025 6:[address] [facility] Lactate, Venous, Whole Blood 1.1 0.5 - 2.2 mmol/L LAB HEMATOLOGY METHOD 03/03/2025 6:[address] [facility] Ionized Calcium, Whole Blood 4.8 4.6 - 5.1 mg/dL LAB HEMATOLOGY METHOD 03/03/2025 6:[address] [facility] Blood Venous blood specimen / Unknown Venipuncture / Unknown 03/03/2025 6:02 PM EST 03/03/2025 6:12 PM EST us Phillip Carney MD LAB BLOOD ORDERABLES Final Result [facility] [address] [place] [address] * CMP (03/03/2025 6:02 PM EST) Glucose, Plasma 86 74 - 99 mg/dL 03/03/2025 6:[address] [facility] BUN, Plasma 13 7 - 21 mg/dL 03/03/2025 6:[address] [facility] Creatinine, Plasma 0.75 0.60 - 1.10 mg/dL 03/03/2025 6:[address] [facility] BUN/Creatinine Ratio 17 03/03/2025 6:[address] [facility] Sodium, Plasma 139 136 - 145 mmol/L 03/03/2025 6:[address] [facility] Potassium, Plasma 3.9 3.6 - 4.9 mmol/L 03/03/2025 6:[address] [facility] Chloride, Plasma 106 97 - 107 mmol/L 03/03/2025 6:[address] [facility] CO2, Plasma 22 22 - 29 mmol/L 03/03/2025 6:[address] [facility] Anion Gap 11 6 - 16 mmol/L 03/03/2025 6:[address] [facility] Total Calcium, Plasma 9.2 8.9 - 10.2 mg/dL 03/03/2025 6:[address] [facility] Total Protein 7.0 6.3 - 7.9 g/dL 03/03/2025 6:[address] [facility] Albumin, Plasma 4.0 3.5 - 5.2 g/dL 03/03/2025 6:[address] [facility] AST, Plasma 11 10 - 35 U/L 03/03/2025 6:[address] [facility] ALT, Plasma 15 10 - 35 U/L 03/03/2025 6:[address] [facility] Alkaline Phosphatase, Plasma 94 35 - 104 U/L 03/03/2025 6:[address] [facility] Total Bilirubin, Plasma 0.3 0.2 - 1.1 mg/dL 03/03/2025 6:[address] [facility] eGFRcr 105.3 mL/min/1.7 3m*2 03/03/2025 6:[address] [facility] Comment:Reported eGFRcr in m L/min/1.73m2 is based the CKD-EPI 2020 equation that does not use a race coefficient. Blood Venous blood specimen / Unknown Venipuncture / Unknown 03/03/2025 6:02 PM EST 03/03/2025 6:13 PM EST us Phillip Carney MD LAB BLOOD ORDERABLES Final Result [facility] [address] [place] [address] * EKG now - STAT (adult) (03/03/2025 5:31 PM EST) EKG DIAGNOSIS CLASS Borderline Abnormal MUSE ECG Ventricular Rate 59 BPM MUSE ECG Atrial Rate 59 BPM MUSE ECG OK Interval 136 ms MUSE ECG QRSD Interval 78 ms MUSE ECG QT Interval 418 ms MUSE ECG QTC Interval 413 ms MUSE ECG P Kennedy -11 degrees MUSE ECG R Kennedy 2 degrees MUSE ECG T Wave Kennedy 8 degrees MUSE ECG Diagnosis Sinus bradycardia with sinus arrhythmia MUSE ECG Diagnosis Low voltage QRS MUSE ECG Diagnosis Borderline ECG MUSE ECG Diagnosis MUSE ECG Diagnosis Confirmed by Ash Ordonez ([id number]) on 03/04/2025 12:38:28 PM MUSE ECG 03/03/2025 5:31 PM EST 03/04/2025 12:38 PM EST Phillip Carney MD ECG ORDERABLES Final Resu lt MUSE ECG * POCT glucose meter (03/03/2025 4:16 PM EST) [facility] POCT Glucose 90 74 - 99 mg/dL [...] for testing. Comment 03/03/2025 4:24 PM EST [facility] Real Estate Transaction Coordinator ID Janneth Gutierrez 03/03/2025 4:24 PM EST [facility] Device ID [id number] 03/03/2025 4:24 PM EST [facility] Specimen Type POC Capillary 03/03/2025 4:24 PM EST [facility] Blood Capillary blood specimen / Unknown 03/03/2025 4:16 PM EST 03/03/2025 4:24 PM EST us Generic Provider Poct LAB POINT OF CARE TEST DOCKED DEVICE UNSOLICITED RESULTS Final Result [facility] [address] [place] [address] from Last 3 Months Insurance [employer] [facility] MEDICAID Care Teams Lower In Supervisor Relationship Specialty Start Date End Date Pcp, No [address] [place] [address] PCP - General Family Medicine 03/03/25
[2025-03-08 15:41] LABS: Hematocrit 40.2 % (37.0-47.0); Hemoglobin 13.3 g/dL (12.2-16.2); Immature Granulocytes % 0.6 %; Mean Corpuscular HGB Conc 33.1 g/dL (31.8-35.4); Mean Corpuscular Hemoglobin 28.8 pg (27.0-31.2); Mean Corpuscular Volume 87.0 fl (81-99); Nucleated Red Blood Cells % 0 %; Platelet Count 281 K/mm3 (142-424); Red Blood Count 4.62 M/mm3 (4.20-5.40); Red Cell Distribution Width-SD 42.0 fL; White Blood Count 10.2 K/mm3 (4.8-10.8)
[2025-03-08] MEDS: levETIRAcetam 1,000 MG in 0.9 % SODIUM CHLORIDE 100 ML 220 MG IV (15:41)
[2025-03-08 15:44] LABS: HCG Qualitative, Serum Negative (Negative); Lactate Venous 1.2 mmol/L (0.4-2.0); VBG HCO3 21.0 mmol/L (23-30); VBG PCO2 40.3 mmol/L (35-51); VBG PH 7.33 mmol/L (7.31-7.41); VBG PO2 64.7 mmol/L (28-40)
[2025-03-08 15:51] LABS: Alanine Aminotransferase 27 U/L (12-78); Albumin Level 4.0 g/dl (3.5-5.0); Albumin/Globulin Ratio 1.3 (1.1-1.8); Alkaline Phosphatase 88 U/L (38-126); Anion Gap 8.7 mEq/L (5-15); Aspartate Amino Transferase 31 U/L (14-36); Bilirubin,Total 0.5 mg/dl (0.2-1.3); Blood Urea Nitrogen 11 mg/dl (7-17); Calcium 9.3 mg/dl (8.4-10.2); Carbon Dioxide 23 mmol/L (22.0-30.0); Chloride 109 mmol/L (98-107); Creatinine Clearance Estimated 159 mL/min (50-200); Creatinine,Serum 0.80 mg/dl (0.52-1.04); Estimated Glomerular Filt Rate 81 ml/min (>60); GFR (African American) 98 ML/MIN (>60); Globulin 3.2 g/dL (1.3-3.2); Glucose 92 mg/dl (74-100); Potassium 3.7 mmoL/L (3.5-5.1); Sodium 137 mmol/L (136-145); Total Protein,Serum 7.2 g/dl (6.3-8.2)
[2025-03-08 16:07] LABS: Free T4 (Free Thyroxine) 1.17 ng/dl (0.78-2.19)
[2025-03-08 16:22] LABS: Thyroid Stimulating Hormone 1.24 uIU/mL (0.465-4.68)
[2025-03-08 17:06] LABS: Microscopic, Urine URINE MICROSCOPIC (MICROSCOPIC)
[2025-03-08 17:13] LABS: Color,Urine YELLOW (Yellow); Glucose,Urine (UA) Negative (Negative); Ketones,Urine TRACE (Negative); Leukocyte Esterase,Urine TRACE (Negative); PH,Urine 5.5 (5.0-8.5); Protein,Urine Negative (Negative); Specific Gravity, Urine >= 1.030 (1.005-1.030); Urobilinogen,Urine 1.0 EU/dl (0.2)
[2025-03-08 17:24] LABS: Bilirubin,Urine Negative (Negative); WBC,Urine 20-50 #/hpf (0-3)
[2025-03-08 17:25] LABS: Amorphous Sediment,Urine 1+ /lpf; Bacteria,Urine 3+ /lpf; Mucus,Urine 2+ /lpf; Squamous Epithelial Cell,Urine 20-50 #/hpf (0-5)
[2025-03-08 17:37] LABS: Amphetamine/Metha Screen,Urine Negative ng/ml (<1000); Barbiturates Screen,Urine Negative ng/ml (<200); Benzodiazepines Screen,Urine Negative ng/ml (<200); Methadone Screen,Urine Negative ng/ml (<300); Opiate Screen,Urine Negative ng/ml (<300); Phencyclidine Screen,Urine Negative ng/ml (<25)
[2025-03-08] MEDS: MIDAZOLAM 2MG/2ML VIAL 1 MG IV (18:05)
--- NOTE | 2025-03-08 18:37 | CT_ITS ---
PROCEDURE INFORMATION: Exam: CT Head Without Contrast Exam date and time: 03/08/2025 6:50 PM Age: 39 years old Clinical indication: Altered mental status/memory loss TECHNIQUE: Imaging protocol: Computed tomography of the head without contrast. Radiation optimization: All CT scans at this facility use at least one of these dose optimization techniques: automated exposure control; mA and/or kV adjustment per patient size (includes targeted exams where dose is matched to clinical indication); or iterative reconstruction. COMPARISON: CT HEAD/BRAIN WO CON 03/02/2024 12:04 AM FINDINGS: Brain: Left middle cranial fossa small arachnoid cyst. No evidence for acute transcortical infarct. No mass effect or midline shift. No extra-axial collection. No acute intracranial hemorrhage. Basal cisterns are patent. Cerebral ventricles: No ventriculomegaly. Paranasal sinuses: Visualized sinuses are unremarkable. No fluid levels. Mastoid air cells: Visualized mastoid air cells are well aerated. Bones: Unremarkable. No acute fracture. Soft tissues: Unremarkable. IMPRESSION: No evidence for acute transcortical infarct, acute intracranial hemorrhage, or mass effect.
--- NOTE | 2025-03-08 19:31 | PC.NURSE ---
[facility] called for update at this time. Update given
--- NOTE | 2025-03-08 20:28 | PC.NURSE ---
Report given to Selin LOTT on stepdown
--- NOTE | 2025-03-08 20:59 | PC.NURSE ---
Patient arrived to ICU unit via ED stretcher from ED @20:37
--- NOTE | 2025-03-08 21:38 | PC.NURSE ---
Spoke with [facility] staff for updated medication list and patient history. Updated chart as needed.
--- NOTE | 2025-03-08 22:34 | PC.NURSE ---
Called report to Yee LOTT @ [phone]
--- NOTE | 2025-03-08 22:56 | PC.NURSE ---
Patient transferred to Med surg, room 216 at this time.
--- NOTE | 2025-03-08 23:04 | PC.NURSE ---
Patient arrived to floor via bed from ICU at 22:57.
--- NOTE | 2025-03-08 23:07 | P.HP_ITS ---
<Statement entered by Naldo Holbrook MD - 03/09/25 13:11> Rounded on patient after nurse practitioner. Personally examined and interviewed patient. Agree with exam findings and care plan as documented. History of Present Illness *Admission Date: 03/08/25 *Reason for visit:: Altered mental status *History of present illness: 39-year-old female patient transferred via EMS from [facility]. She has been transferred for altered mental status. Caregivers state over the last 2 to 3 days she has become less interactive and more somnolent. She has been under one-on-one observation for the last 24 hours. She does have history of seizure, unsure of last seizure. Patient is alert and staring at me during interview. She is able to give me her name and the year but does not respond when asked where she is. She is unable to give me her medical history. She reports pain in her head and neck. CT of the head was negative. There is no focal deficits. There were no findings on ED workup. Her history includes ADHD, depression, anxiety, GERD and seizure disorder. [facility] Disclaimer: The information contained in this section may have been updated after the patient was seen, as this information can be updated by other users. Medical History (Updated 03/08/25 @ 23:59 by Ana Villeda APRN) Epilepsy Cholecystitis ADHD Depression Anxiety GERD (gastroesophageal reflux disease) Seizure disorder Surgical History History of tonsillectomy History of Family History Other Alcohol abuse Family history of cancer Social History (Updated 03/08/25 @ 22:05 by Selin Vinson RN) Smoking Status: Unknown if ever smoked alcohol intake: former substance use type: denies use current occupational status: unemployed Travel in the last 8 weeks?: None Have you lived/traveled outside US in past 30 days?: No Contact w/someone who lives/traveled outside US past 30 days?: No Exposure to someone with infectious disease in past 14 days?: No Do you have a fever (greater than 100.4 F or 38 C)?: No Have you tested positive for COVID-19?: No Exposed to someone with COVID-19 in past 14 days?: No Do you have a sore throat?: No Do you have a cough?: No Do you have any weakness?: No Do you have any diarrhea?: No Are you experiencing any unusual bleeding?: No Do you have any muscle aches/pain?: No Do you have any abdominal pain?: No Are you experiencing loss of taste or smell?: No Other Medical History Have you received the Flu Vaccine for this season: No Have you received the Pneumonia Vaccine: No Review of Systems Review of Systems Review of systems:: unable to obtain Meds Home Medications and Allergies Home Medications ?Medication ?Instructions ?Recorded ?Confirmed ?Type cyanocobalamin (vitamin B-12) 1,000 mcg PO DAILY 03/0203/08/25 History 1,000 mcg tablet ferrous sulfate 325 mg (65 mg 325 mg PO DAILY 03/02/24 03/08/25 History iron) tablet (FeroSul) sucralfate 1 gram tablet 1 g PO ACHS 03/02/24 5 History topiramate 200 mg tablet 200 mg PO BID 03/02/2403/08 History famotidine 20 mg tablet (Pepcid) 20 mg PO BID PRN Hear tburn 05/01/24 03/08/25 History aripiprazole 15 mg tablet 15 mg PO DAILY 03/08/2502/25 History cholecalciferol (vitamin D3) 1,250 1,250 mcg PO Q7D 03/08/25 History mcg (50,000 unit) capsule fluticasone propionate 50 2 spray intranasal BID 03/0803/08/25 History mcg/actuation nasal spray,suspension levetiracetam 1,000 mg tablet 1,000 mg PO BID 03/08/25 03/08/25 History lisinopril 10 mg tablet 10 mg PO DAILY 03/08/2502/25 History New Prescriptions to Start Prescriptions: Allergies Allergy/AdvReac Type Severity Reaction Status Date / Time cyclobenzaprine (From Allergy Unknown Verified 05/26/24 10:47 Flexeril) allergy reaction prednisone Allergy Unknown Verified 05/26/24 10:47 allergy reaction Exam Data for Last 24 hours Vital signs and Labs for Last 24 Hours: Temp Pulse Resp BP Pulse Ox O2 Del Method 98.6 F 70 20 121/75 97 Room Air 03/08/25 20:52 03/08/25 20:57 03/08/25 20:52 03/08/25 20:52 03/08/25 20:52 03/08/25 22:45 Laboratory Results - last 24 hr 03/08/25 15:20: WBC 10.2, RBC 4.62, Hgb 13.3, Hct 40.2, MCV 87.0, MCH 28.8, MCHC 33.1, RDW 13.2, Plt Count 281, MPV 10.5 H, Neut % (Auto) 68.4, Lymph % (Auto) 23.8, [place] % (Auto) 5.3, Eos % (Auto) 1.1, Baso % (Auto) 0.8, Neut # (Auto) 7.0, Lymph # (Auto) 2.4, [place] # (Auto) 0.5, Eos # (Auto) 0.1, Baso # (Auto) 0.1, VBG pH 7.33, VBG pCO2 40.3, VBG pO2 64.7 H, VBG HCO3 21.0 L, VBG Total CO2 22.2 L, VBG O2 Saturation 92.8 H, VBG Base Excess -4.9 L, VBG Lactic Acid 1.2, Sodium 137, Potassium 3.7, Chloride 109 H, Carbon Dioxide 23, Anion Gap 8.7, BUN 11, Creatinine 0.80, Estimated Creat Clear 159, Estimated GFR 81, Est GFR ( Amer) 98, Glucose 92, Calcium 9.3, Total Bilirubin 0.5, AST 31, ALT 27, Alkaline Phosphatase 88, Total Protein 7.2, Albumin 4.0, Globulin 3.2, Albumin/Globulin Ratio 1.3, TSH 1.24, Free T4 1.17, Serum HCG, Qual Negative, Plasma/Serum Alcohol < 10 03/08/25 17:00: Urine Color Yellow, Urine Appearance Sl cloudy, Urine pH 5.5, Ur Specific [place] >= 1.030, Urine Protein Negative, Urine Glucose (UA) Negative, Urine Ketones Trace, Urine Blood Negative, Urine Nitrate Negative, Urine Bilirubin Negative, Urine Urobilinogen 1.0, Ur Leukocyte Esterase Trace, Urine RBC 5-10, Urine WBC 20-50, Ur Squamous Epith Cells 20-50, Amorphous Sediment 1+, Urine Bacteria 3+, Urine Mucus 2+, Urine Opiates Screen Negative, Urine Methadone Screen Negative, Ur Barbituates Screen Negative, Ur Phencyclidine Scrn Negative, Ur Amphetamines Screen Negative, U Benzodiazepines Scrn Negative, Urine Cocaine Screen Negative, U Marijuana (THC) Screen Negative I & O for Last 24 hours: Intake & Output 03/05/25 03/06/25 03/07/25 03/08/25 23:59 23:59 23:59 23:59 Intake Total 110 / 110 Balance 110 / 110 Weight 100.199 kg Constitutional Constitutional: no acute distress *Routine HEENT Exam Head: Present normocephalic and atraumatic Eye: Present EOMI and PERRL; Absent nystagmus ENT: Present mucous membranes moist and oropharynx clear; Absent dentition normal (Patient has very poor dentition. Redness and swelling of the gums, discoloration of the front teeth, concern for some purulent drainage from upper teeth on the right side) *Routine Neck Exam Neck: Present supple and full ROM; Absent lymphadenopathy or tenderness *Routine Respiratory Exam Respiratory: Present CTA bilaterally *Routine Cardiovascular Exam Cardiovascular: Present RRR, Normal S1 and Normal S2 *Routine Abdominal Exam Abdominal: Present soft and normoactive bowel sounds; Absent tenderness *Routine Rectal Exam Rectal:: deferred *Routine Genitalia Exam Genitalia:: deferred *Routine Extremities Exam Extremities: Present pulses intact; Absent edema *Routine Skin Exam Skin: Present intact, dry and warm *Routine Neurological Exam Neurological: Present alert, oriented X3 (Oriented to year and name, does not answer when asked where she is at), altered mental status (Patient is normally very talkative according to detention staff, today she responds minimally to questions. She is alert and awake.) and moving all extremities (Strength is equal bilaterally) Routine Psychiatric Exam Psychiatric: Present unable to assess Assessment and Plan *Assessment and plan (1) Altered mental status: Status: Acute Qualifiers: Altered mental status type: unspecified Qualified Code(s): R41.82 - Altered mental status, unspecified Category: Medical Code(s): R41.82 - Altered mental status, unspecified (2) Seizure disorder: Status: Acute Category: Medical Code(s): G40.909 - Epilepsy, unspecified, not intractable, without status epilepticus (3) GERD (gastroesophageal reflux disease): Status: Acute Qualifiers: Esophagitis presence: esophagitis presence not specified Qualified Code(s): K21.9 - Gastro-esophageal reflux disease without esophagitis Category: Medical Code(s): K21.9 - Gastro-esophageal reflux disease without esophagitis (4) Depression: Status: Acute Qualifiers: Depression Type: unspecified Qualified Code(s): F32.A - Depression, unspecified Category: Medical Code(s): F32.A - Depression, unspecified (5) Anxiety: Status: Acute Category: Medical Code(s): F41.9 - Anxiety disorder, unspecified (6) Poor dentition: Status: Acute Category: Medical Code(s): K08.9 - Disorder of teeth and supporting structures, unspecified Plan Patient presents to ER from local [facility] with change in mentation over the last 2 to 3 days. Staff report that she is normally very talkative and interactive. She has become less so over the last 2 to 3 days. Over the last 24 hours she has been on 1 on 1 observation and there were no witnessed events. She does have history of seizure. Postictal state would be of concern but does not appear she has had a seizure in the last 24 hours due to observation. Workup in the ER is essentially unremarkable for cause of her altered mental status. Urinalysis and UDS are both negative. After discussion with the ER physician I have agreed to except this patient for admission for further evaluation and treatment. Will need to rule out any medical causes of altered mental status but ultimately she may need to see psych for additional workup. She is on Keppra and topiramate for seizures. Has been on topiramate since August, it does have a side effect of slowed psychomotor function. Will continue Keppra for now. Will have Valium available for seizures as needed and we will keep her on seizure precautions. Repeat labs in the morning. Lovenox for DVT prophylaxis and will start a PPI since she does have history of GERD. She does have very poor dentition. I have asked nursing to do some oral care. Records show she has had abscesses in the past. Dental infection would be on the differential for etiology of altered mental status however CT does not show any evidence of abscess and she does not have an elevated white count or fever.
[2025-03-09] VITALS: BP 117/71; PULSE 72; RESP 16; TEMP 37.1; O2SAT 97
[2025-03-09 04:00] VITALS: BP 110/71; PULSE 77; RESP 16; TEMP 36.6; O2SAT 100
[2025-03-09 08:00] VITALS: BP 125/66; PULSE 59; RESP 16; TEMP 36.6; O2SAT 100
--- NOTE | 2025-03-09 08:04 | SW/DCPLANNER ---
Addendum entered by Edda Forman 03/09/25 11:00: I have updated Karina jin/ He Cheng that patient is medically/physically able to return today. Original Note: Patient currently resides at [facility]. Per Karina jin/ He Cheng patient normally walks around independently and able to do everything for herself. Discharge date is unknown at this time. CM will continue to follow up.
--- NOTE | 2025-03-09 09:02 | P.CONPHA_ITS ---
Pharmacy Intervention Comments: home medication list verified using list from [facility]
--- NOTE | 2025-03-09 09:02 | HMH.PHAINT1 ---
Pharmacy Intervention Comments: home medication list verified using list from [facility]
--- NOTE | 2025-03-09 09:16 | HMH.OTEV ---
OT Evaluation Rehab OT IP Evaluation Start: 03/08/25 22:02 Freq: ONCE Status: Active Protocol: Document 03/09/25 09:07 MANISH (Rec: 03/09/25 09:16 MANISH [id number]) Rehab OT IP Assessment Subjective History Per *History of present illness: 39-year-old female patient transferred via EMS from [facility]. She has been transferred for altered mental status. Caregivers state over the last 2 to 3 days she has become less interactive and more somnolent. She has been under one -on-one observation for the last 24 hours. She does have history of seizure, unsure of last seizure. Patient is alert and staring at me during interview. She is able to give me her name and the year but does not respond when asked where she is. She is unable to give me her medical history. She reports pain in her head and neck. CT of the head was negative. There is no focal deficits. There were no findings on ED workup. Her history includes ADHD, depression, anxiety, GERD and seizure disorder. Subjective I live with grandma. Pt was sitting upright in bed when therapy entered room . Pt reported they lived with grandmother. Upon further investigation and assessment, pt lives at [facility] and grandmother had just recently passed per CM and nursing. Pt agreed to FM task. Pt went from middle of bed to EOB Ind. Pt then completed STS with Ind and then completed FM task with CGA for safety. Pt required mx education and cuing for engagement in session. Pt demo good activity tolerance and endurance for task. Pt then sat back on EOB and sat in middle of bed. Pt left sitting in bed with rails and bed alarm on and call light and all other needs within reach. Objective Patient Orientation Name Right Upper WFL Extremity Gross ROM Left Upper Extremity WFL Gross ROM Bed Mobility bed mobility-scooting Assist Level Independent Transfer Training Sit/Stand Transfer Assist Level Independent Chair Transfer Sit to/from Ambulatory Technique Chair Transfer None Assistive Devices Decrease in No Endurance Rehab OT IP prob,goals,plan Problems Date of Evaluation: 03/09/25 Rehab Potential Rehab Potential Innapropriate for Skilled Therapy Discharge Plan OT Discharge Plan At this time, pt is at baseline and would not benefit from skilled acute OT while admitted at [facility]. Once medically stable, pt could DC back to [facility]. Pt could benefit from using a walker in order to improve functional performance and safety in occupational performance. Eval Complexity Eval Charge Codes 33907 - Moderate Complexity PHYSICIAN CERTIFICATION: I certify the specified therapy services for Truong Ring are required, authorized, and reviewed every 30 days.
--- NOTE | 2025-03-09 09:30 | HMH.PTEV ---
Physical Therapy Evaluation Rehab PT IP Evaluation Start: 03/08/25 22:02 Freq: ONCE Status: Active Protocol: Document 03/09/25 09:21 RELL (Rec: 03/09/25 09:29 RELL [id number]) Subjective/History History History Per H&P: 39-year-old female patient transferred via EMS from [facility]. She has been transferred for altered mental status. Caregivers state over the last 2 to 3 days she has become less interactive and more somnolent. She has been under one -on-one observation for the last 24 hours. She does have history of seizure, unsure of last seizure. Patient is alert and staring at me during interview. She is able to give me her name and the year but does not respond when asked where she is. She is unable to give me her medical history. She reports pain in her head and neck. CT of the head was negative. There is no focal deficits. There were no findings on ED workup. Her history includes ADHD, depression, anxiety, GERD and seizure disorder. Subjective Subjective Pt reports she lives with her grandmother. Per H&P, pt is a [facility] resident. Confirm hx with CM. Pt demo'd delayed processing/answering during hx questions. New diagnosis of No cancer in past 12 months? [facility] How much help from another person do you currently need... Turning from your None back to your side while in a flat bed without using bedrails? Moving from lying on None back to sitting on the side of a flat bed without using bedrails? Moving to and from a None bed to a chair ( including a wheelchair)? Standing up from a None chair using your arms? (e.g., wheelchair, bedside chair) Walking in hospital None room? Climbing 3-5 steps A little with a railing? Mobility Score 23 Mobility Level [facility] Mobility 7 Walk 25 feet or more Mobility Calculator Rehab PT IP Eval Objective Appearance Patient Behavior Cooperative,Confused Patient Orientation Person Difficulty following moderate instructions Speech Pattern Delayed Ambulation Patient Able to Yes Ambulate Ambulation Observation IP General Gait Wide Based Gait Pattern Observation Ambulation Distance 15 (feet) Ambulation Assistive None Device Ambulation Ability Supervision/Stand by Balance Ability to Arise Able, uses arms to help Sitting Balance Steady, safe Standing Balance Steady, wide stance Dynamic Sitting Good Balance Ability Dynamic Standing Good Balance Ability Transfers Bed Transfer Ability Supervision/Stand by Sit to Stand Bed Supervision/Stand by Transfer Ability Rehab PT IP prob,goals,plan Problems Date of Evaluation: 03/09/25 Rehab Potential Rehab Potential Innapropriate for Skilled Therapy Discharge Plan PT Discharge Plan Pt not appropriate for skilled IP PT at this time d/t mobility being IND/SBA. Pt did demonstrate slow gait and delayed processing to simple-commands secondary to her AMS but no LOB noted and no assistance required. PT recommending pt use RW to maximize safety with ambulation upon d/c home. Eval Complexity Eval Charge Codes 40721 - Moderate Complexity PHYSICIAN CERTIFICATION: I certify the specified therapy services for Truong Ring are required, authorized, and reviewed every 30 days.
[2025-03-09 09:45] LABS: Hematocrit 43.2 % (37.0-47.0); Hemoglobin 14.0 g/dL (12.2-16.2); Immature Granulocytes % 0.4 %; Mean Corpuscular HGB Conc 32.4 g/dL (31.8-35.4); Mean Corpuscular Hemoglobin 28.2 pg (27.0-31.2); Mean Corpuscular Volume 87.1 fl (81-99); Nucleated Red Blood Cells % 0 %; Platelet Count 233 K/mm3 (142-424); Red Blood Count 4.96 M/mm3 (4.20-5.40); Red Cell Distribution Width-SD 42.0 fL; White Blood Count 12.4 K/mm3 (4.8-10.8)
--- NOTE | 2025-03-09 10:09 | P.DS_ITS ---
General Admission date:: 03/08/25 Discharge date: 03/09/25 HPI HPI HPI: 39-year-old female patient transferred via EMS from [facility]. She has been transferred for altered mental status. Caregivers state over the last 2 to 3 days she has become less interactive and more somnolent. She has been under one-on-one observation for the last 24 hours. She does have history of seizure, unsure of last seizure. Patient is alert and staring at me during interview. She is able to give me her name and the year but does not respond when asked where she is. She is unable to give me her medical history. She reports pain in her head and neck. CT of the head was negative. There is no focal deficits. There were no findings on ED workup. Her history includes ADHD, depression, anxiety, GERD and seizure disorder. Hospital Course Hospital Course Hospital Course: Ms. Kim is a 39-year-old female who resides at [facility]. Recently found out 3 weeks ago that her grandmother who had been her caregiver and essentially raised her had to custodial. She presented to the ER from her personal-retirement with concern for withdrawn state and change in mentation over the past few days. Staff report that she is normally very talkative and interactive. She has become less so over the last 2 to 3 days. Over the last 24 hours she has been on 1 on 1 observation and there were no witnessed events. She does have history of seizure. Postictal state would be of concern but does not appear she has had a seizure in the last 24 hours due to observation. Workup in the ER is essentially unremarkable for cause of her altered mental status. Urinalysis and UDS are both negative. Patient was admitted to medicine for further management. She does interact but appears withdrawn. States she feels depressed. Had psychiatry see her who recommend initiating her on Zoloft 50 mg daily. Recommend having psychiatry at her personal-retirement to evaluate and make adjustments within the next week. Medically she appears stable. She is managing her own ADLs. Therapy evaluated her and recommended walker but otherwise needs no acute therapeutic interventions. Has had no seizure activity during admission. Resume home medications. Follow-up with psychiatry within the next week. Stable to discharge. Total time spent on discharge 32 minutes in counseling, documentation, chart review, and direct care with patient. Exam Data for Last 24 hours Vital signs and Labs for Last 24 Hours: Temp Pulse Resp BP Pulse Ox O2 Del Method 98 F 59 L 16 125/66 100 Room Air 03/09/25 08:00 03/09/25 08:00 03/09/25 08:00 03/09/25 08:00 03/09/25 08:00 03/09/25 09:00 Laboratory Results - last 24 hr 03/08/25 15:20: WBC 10.2, RBC 4.62, Hgb 13.3, Hct 40.2, MCV 87.0, MCH 28.8, MCHC 33.1, RDW 13.2, Plt Count 281, MPV 10.5 H, Neut % (Auto) 68.4, Lymph % (Auto) 23.8, [place] % (Auto) 5.3, Eos % (Auto) 1.1, Baso % (Auto) 0.8, Neut # (Auto) 7.0, Lymph # (Auto) 2.4, [place] # (Auto) 0.5, Eos # (Auto) 0.1, Baso # (Auto) 0.1, VBG pH 7.33, VBG pCO2 40.3, VBG pO2 64.7 H, VBG HCO3 21.0 L, VBG Total CO2 22.2 L, VBG O2 Saturation 92.8 H, VBG Base Excess -4.9 L, VBG Lactic Acid 1.2, Sodium 137, Potassium 3.7, Chloride 109 H, Carbon Dioxide 23, Anion Gap 8.7, BUN 11, Creatinine 0.80, Estimated Creat Clear 159, Estimated GFR 81, Est GFR ( Amer) 98, Glucose 92, Calcium 9.3, Total Bilirubin 0.5, AST 31, ALT 27, Alkaline Phosphatase 88, Total Protein 7.2, Albumin 4.0, Globulin 3.2, Albumin/Globulin Ratio 1.3, TSH 1.24, Free T4 1.17, Serum HCG, Qual Negative, Plasma/Serum Alcohol < 10 03/08/25 17:00: Urine Color Yellow, Urine Appearance Sl cloudy, Urine pH 5.5, Ur Specific [place] >= 1.030, Urine Protein Negative, Urine Glucose (UA) Negative, Urine Ketones Trace, Urine Blood Negative, Urine Nitrate Negative, Urine Bilirubin Negative, Urine Urobilinogen 1.0, Ur Leukocyte Esterase Trace, Urine RBC 5-10, Urine WBC 20-50, Ur Squamous Epith Cells 20-50, Amorphous Sediment 1+, Urine Bacteria 3+, Urine Mucus 2+, Urine Opiates Screen Negative, Urine Methadone Screen Negative, Ur Barbituates Screen Negative, Ur Phencyclidine Scrn Negative, Ur Amphetamines Screen Negative, U Benzodiazepines Scrn Negative, Urine Cocaine Screen Negative, U Marijuana (THC) Screen Negative 03/09/25 09:20: WBC 12.4 H, RBC 4.96, Hgb 14.0, Hct 43.2, MCV 87.1, MCH 28.2, MCHC 32.4, RDW 13.2, Plt Count 233, MPV 11.1 H, Neut % (Auto) 74.7, Lymph % (Auto) 17.9, Shackelford % (Auto) 5.5, Eos % (Auto) 0.7, Baso % (Auto) 0.8, Neut # (Auto) 9.2 H, Lymph # (Auto) 2.2, Shackelf[place] # (Auto) 0.7, Eos # (Auto) 0.1, Baso # (Auto) 0.1 I & O for Last 24 hours: Intake & Output 03/06/25 03/07/25 03/08/25 03/09/25 23:59 23:59 23:59 23:59 Intake Total 110 / 110 0 / 0 Balance 110 / 110 0 / 0 Weight 100.199 kg Constitutional Constitutional: no acute distress, morbidly obese and chronically ill appearing *Routine HEENT Exam Head: Present normocephalic Eye: Present EOMI and PERRL ENT: Present mucous membranes moist *Routine Neck Exam Neck: Present supple; Absent lymphadenopathy *Routine Respiratory Exam Respiratory: Present CTA bilaterally *Routine Cardiovascular Exam Cardiovascular: Present RRR *Routine Abdominal Exam Abdominal: Present soft and normoactive bowel sounds; Absent tenderness *Routine Rectal Exam Patient deferred: visual exam *Routine Exam Patient deferred: external exam *Routine Extremities Exam Extremities: Absent cyanosis, clubbing or edema *Routine Skin Exam Skin: Present warm; Absent rash *Routine Neurological Exam Neurological: Present alert and moving all extremities; Absent altered mental status Comments: Patient knows her name, that she is in [place]. Does not want to communicate much with staff will communicate and make good eye contact with basic answers Routine Psychiatric Exam Psychiatric: Present cooperative and depressed Comments: Tearful; her withdrawn disposition is most consistent with major depression versus acute grief with recent loss of her grandmother. She even states she feels depressed. Results Data Completed and Pending Labs on day of discharge: Labs from last 24 hours 03/09/25 03/08/25 03/08/25 09:20 17:00 15:20 WBC 12.4 H 10.2 RBC 4.96 4.62 Hgb 14.0 13.3 Hct 43.2 40.2 MCV 87.1 87.0 MCH 28.2 28.8 MCHC 32.4 33.1 RDW 13.2 13.2 Plt Count 233 281 MPV 11.1 H 10.5 H Neut % (Auto) 74.7 68.4 Lymph % (Auto) 17.9 23.8 Shackelford % (Auto) 5.5 5.3 Eos % (Auto) 0.7 1.1 Baso % (Auto) 0.8 0.8 Neut # (Auto) 9.2 H 7.0 Lymph # (Auto) 2.2 2.4 [place]ord # (Auto) 0.7 0.5 Eos # (Auto) 0.1 0.1 Baso # (Auto) 0.1 0.1 VBG pH 7.33 VBG pCO2 40.3 VBG pO2 64.7 H VBG HCO3 21.0 L VBG Total CO2 22.2 L VBG O2 Saturation 92.8 H VBG Base Excess -4.9 L VBG Lactic Acid 1.2 Sodium 137 Potassium 3.7 Chloride 109 H Carbon Dioxide 23 Anion Gap 8.7 BUN 11 Creatinine 0.80 Estimated Creat Clear 159 Estimated GFR 81 Est GFR ( Amer) 98 Glucose 92 Calcium 9.3 Total Bilirubin 0.5 AST 31 ALT 27 Alkaline Phosphatase 88 Total Protein 7.2 Albumin 4.0 Globulin 3.2 Albumin/Globulin Ratio 1.3 TSH 1.24 Free T4 1.17 Serum HCG, Qual Negative Urine Color Yellow Urine Appearance Sl cloudy Urine pH 5.5 Ur Specific [place] >= 1.030 Urine Protein Negative Urine Glucose (UA) Negative Urine Ketones Trace Urine Blood Negative Urine Nitrate Negative Urine Bilirubin Negative Urine Urobilinogen 1.0 Ur Leukocyte Esterase Trace Urine RBC 5-10 Urine WBC 20-50 Ur Squamous Epith Cells 20-50 Amorphous Sediment 1+ Urine Bacteria 3+ Urine Mucus 2+ Urine Opiates Screen Negative Urine Methadone Screen Negative Ur Barbituates Screen Negative Ur Phencyclidine Scrn Negative Ur Amphetamines Screen Negative U Benzodiazepines Scrn Negative Urine Cocaine Screen Negative U Marijuana (THC) Screen Negative Plasma/Serum Alcohol < 10 DS: Diagnosis Discharge Diagnosis (1) Depression: Status: Acute Code(s): F32.A - Depression, unspecified Qualifiers: Depression Type: unspecified Qualified Code(s): F32.A - Depression, unspecified (2) Altered mental status: Status: Acute Code(s): R41.82 - Altered mental status, unspecified Qualifiers: Altered mental status type: unspecified Qualified Code(s): R41.82 - Altered mental status, unspecified (3) Seizure disorder: Status: Acute Code(s): G40.909 - Epilepsy, unspecified, not intractable, without status epilepticus (4) GERD (gastroesophageal reflux disease): Status: Acute Code(s): K21.9 - Gastro-esophageal reflux disease without esophagitis Qualifiers: Esophagitis presence: esophagitis presence not specified Qualified Code(s): K21.9 - Gastro-esophageal reflux disease without esophagitis (5) Anxiety: Status: Acute Code(s): F41.9 - Anxiety disorder, unspecified (6) Poor dentition: Status: Acute Code(s): K08.9 - Disorder of teeth and supporting structures, unspecified (7) Class 2 obesity: Status: Chronic Code(s): E66.812 - Obesity, class 2 Meds Home Medications and Allergies Home Medications ?Medication ?Instructions ?Recorded ?Confirmed ?Type cyanocobalamin (vitamin B-12) 1,000 mcg PO DAILY 03/0203/08/25 History 1,000 mcg tablet ferrous sulfate 325 mg (65 mg 325 mg PO DAILY 03/02/24 03/08/25 History iron) tablet (FeroSul) sucralfate 1 gram tablet 1 g PO ACHS 03/02/24 5 History topiramate 200 mg tablet 200 mg PO BID 03/02/2403/08 History famotidine 20 mg tablet (Pepcid) 20 mg PO BID PRN Hear tburn 05/01/24 03/08/25 History aripiprazole 15 mg tablet 15 mg PO DAILY 03/08/2502/25 History cholecalciferol (vitamin D3) 1,250 1,250 mcg PO WEEKLY on fridays03/08/25 03/09/25 History mcg (50,000 unit) capsule fluticasone propionate 50 2 spray intranasal BID 03/0803/08/25 History mcg/actuation nasal spray,suspension levetiracetam 1,000 mg tablet 1,000 mg PO BID 03/08/25 03/08/25 History lisinopril 10 mg tablet 10 mg PO DAILY 03/08/2502/25 History sertraline 50 mg tablet 50 mg PO DAILY 30 days #30 t abs 03/09/25 Rx New Prescriptions to Start Prescriptions: sertNaldo Ramos Allergies Allergy/AdvReac Type Severity Reaction Status Date / Time cyclobenzaprine (From Allergy Unknown Verified 05/26/24 10:47 Flexeril) allergy reaction prednisone Allergy Unknown Verified 05/26/24 10:47 allergy reaction Discharge Plan Disposition Patient Disposition: Home, Self-Care Condition: Fair Follow up Plan Follow up with: Provider,Referral, MD [Primary Care Provider, Medical] - 1 week Referral Note: [facility] [employer] [employer] Prescriptions/Medication Reconciliation: New sertraline 50 mg Tablet 50 mg PO DAILY 30 Days Qty: 30 0RF Continued lisinopril 10 mg tablet 10 mg PO DAILY fluticasone propionate 50 mcg/actuation spray,suspension 2 spray intranasal BID aripiprazole 15 mg Tablet 15 mg PO DAILY levetiracetam 1,000 mg tablet 1,000 mg PO BID cholecalciferol (vitamin D3) 1,250 mcg (50,000 unit) capsule 1,250 mcg PO WEEKLY sucralfate 1 gram tablet 1 g PO ACHS cyanocobalamin (vitamin B-12) 1,000 mcg tablet 1,000 mcg PO DAILY ferrous sulfate [FeroSul] 325 mg (65 mg iron) tablet 325 mg PO DAILY topiramate 200 mg tablet 200 mg PO BID Patient Comments: TAKE 1 TABLET BY MOUTH TWICE DAILY famotidine [Pepcid] 20 mg Tablet 20 mg PO BID PRN (Reason: Heartburn) Other Ambulatory Orders: Home Medical Equipment (Routine) Location: None Selected Ordered By: Naldo Holbrook Problem Reconciliation Problems Reviewed?: Yes Patient Discharge Instructions ACTIVITY: Continue current activity DIET: continue same diet Patient Instructions: DI for Altered Mental Status Print Language: Ivorian Providers Primary Care Provider: Provider,Referral Admit Provider: Naldo Holbrook Attending Provider: Naldo Holbrook
--- NOTE | 2025-03-09 11:42 | CARE MANAGER ---
Addendum entered by Alana Nguyen RN 03/09/25 12:04: Patient does not have a preference for who provides DME. Information sent to [facility]. Original Note: Patient will require a rolling walker due to mobility impairment that cannot be corrected with a cane. She will require a walker in order to complete her activities of daily living including bathing and getting to the bathroom.
[2025-03-09] MEDS: SERTRALINE 50MG TABLET 25 MG PO (11:52)
[2025-03-09 12:00] VITALS: PULSE 55
--- NOTE | 2025-03-09 12:41 | P.CONS_ITS ---
History of Present Illness *Admission Date: 03/08/25 *History of present illness: Per record: 39-year-old female patient transferred via EMS from [facility]. She has been transferred for altered mental status. Caregivers state over the last 2 to 3 days she has become less interactive and more somnolent. She has been under one-on-one observation for the last 24 hours. She does have history of seizure, unsure of last seizure. Patient is alert and staring at me during interview. She is able to give me her name and the year but does not respond when asked where she is. She is unable to give me her medical history. She reports pain in her head and neck. CT of the head was negative. There is no focal deficits. There were no findings on ED workup. Her history includes ADHD, depression, anxiety, GERD and seizure disorder. [facility] Disclaimer: The information contained in this section may have been updated after the patient was seen, as this information can be updated by other users. Medical History (Updated 03/09/25 @ 11:58 by Naldo Holbrook MD) Epilepsy Cholecystitis ADHD Depression Anxiety GERD (gastroesophageal reflux disease) Seizure disorder Surgical History History of tonsillectomy History of Family History Other Alcohol abuse Family history of cancer Social History (Updated 03/08/25 @ 22:05 by Selin Vinson RN) Smoking Status: Unknown if ever smoked alcohol intake: former substance use type: denies use current occupational status: unemployed Travel in the last 8 weeks?: None Have you lived/traveled outside US in past 30 days?: No Contact w/someone who lives/traveled outside US past 30 days?: No Exposure to someone with infectious disease in past 14 days?: No Do you have a fever (greater than 100.4 F or 38 C)?: No Have you tested positive for COVID-19?: No Exposed to someone with COVID-19 in past 14 days?: No Do you have a sore throat?: No Do you have a cough?: No Do you have any weakness?: No Do you have any diarrhea?: No Are you experiencing any unusual bleeding?: No Do you have any muscle aches/pain?: No Do you have any abdominal pain?: No Are you experiencing loss of taste or smell?: No Review of Systems Review of Systems Review of systems:: unable to obtain Constitutional Constitutional: Reports as per HPI Eyes Eyes: Reports as per HPI ENT Ears, Nose, Mouth, and Throat: Reports as per HPI *Cardiovascular Cardiovascular: Reports as per HPI *Respiratory Respiratory: Reports as per HPI *Gastrointestinal Gastrointestinal: Reports as per HPI *Genitourinary Genitourinary: Reports as per HPI *Musculoskeletal Musculoskeletal: Reports as per HPI Integumentary/Breasts Skin/Breast: Reports as per HPI *Neurologic Comments: Drowsy. Psychiatric Psychiatric: Reports depression (She did nod her head yes when asked if she was having depressive symptoms.) Comments: Patient was sleeping when provider entered the room. She awakened easily and looked at provider. She would not answer any questions other than nodding her head yes when asked if she was having depressive symptoms and stated, [place] when asked where she lived prior to [facility]. She would turn her head and close her eyes while provider was talking to her. Attempted to wake her numerous times, but was unable to have a conversation with her. Meds Home Medications and Allergies Home Medications ?Medication ?Instructions ?Recorded ?Confirmed ?Type cyanocobalamin (vitamin B-12) 1,000 mcg PO DAILY 03/0203/08/25 History 1,000 mcg tablet ferrous sulfate 325 mg (65 mg 325 mg PO DAILY 03/02/24 03/08/25 History iron) tablet (FeroSul) sucralfate 1 gram tablet 1 g PO ACHS 03/02/24 5 History topiramate 200 mg tablet 200 mg PO BID 03/02/2403/08 History famotidine 20 mg tablet (Pepcid) 20 mg PO BID PRN Hear tburn 05/01/24 03/08/25 History aripiprazole 15 mg tablet 15 mg PO DAILY 03/08/2502/25 History cholecalciferol (vitamin D3) 1,250 1,250 mcg PO WEEKLY on fridays03/08/25 03/09/25 History mcg (50,000 unit) capsule fluticasone propionate 50 2 spray intranasal BID 03/0803/08/25 History mcg/actuation nasal spray,suspension levetiracetam 1,000 mg tablet 1,000 mg PO BID 03/08/25 03/08/25 History lisinopril 10 mg tablet 10 mg PO DAILY 03/08/2502/25 History sertraline 50 mg tablet 50 mg PO DAILY 30 days #30 t abs 03/09/25 Rx New Prescriptions to Start Prescriptions: sertraline Naldo Holbrook Allergies Allergy/AdvReac Type Severity Reaction Status Date / Time cyclobenzaprine (From Allergy Unknown Verified 05/26/24 10:47 Flexeril) allergy reaction prednisone Allergy Unknown Verified 05/26/24 10:47 allergy reaction Assessment and Plan *Assessment and plan (1) Depression: Status: Acute Qualifiers: Depression Type: unspecified Qualified Code(s): F32.A - Depression, unspecified Category: Medical Code(s): F32.A - Depression, unspecified Plan Spoke with hospitalist who stated he was going to start her on Zoloft. [facility]
--- NOTE | 2025-03-10 10:23 | SW/DCPLANNER ---
[facility]. Spoke with someone at the director of front office. Sample Cutter stated that patient is doing well. Sample Cutter stated that they are aware of patient's upcoming appointments. Sample Cutter stated that they were able to get patient's medicine picked up. Sample Cutter stated that they have no concerns or questions at this time. Erin PARKS [employer] Operator
== END 2025-03-09 14:35 | disposition home or self-care (01) ==
LOC: ER 19:51 → ICU 20:22 → 2ND 22:03
PROVIDERS: Nurse Practitioner Acute Care; Admitting Provider Internal Medicine Adolescent Medicine; Emergency Provider Student in an Organized Health Care Education/Training Program; Visit Provider Internal Medicine Adolescent Medicine
DX: R41.82 Altered mental status, unspecified (principal); F32.A Depression, unspecified; G40.909 Epilepsy, unspecified, not intractable, without status epilepticus; K21.9 Gastro-esophageal reflux disease without esophagitis; F41.9 Anxiety disorder, unspecified; K08.9 Disorder of teeth and supporting structures, unspecified; E66.812 Obesity, class 2; Z68.39 Body mass index [BMI] 39.0-39.9, adult; Z79.899 Other long term (current) drug therapy; Z88.8 Allergy status to other drugs, medicaments and biological substances; F90.9 Attention-deficit hyperactivity disorder, unspecified type; R41.3 Other amnesia; Z56.0 Unemployment, unspecified
CPT/HCPCS: 36415; 70450; 80053; 80177; 80307; 80320; 81001; 82803; 84439; 84443; 84703; 85025; 87086; 96365; 96372; 96376; 97162; 97166; 99285; G0378; J1650; J1953; J2250